=== PATIENT | male | born 1945 | race Caucasian/White ===

== ENCOUNTER → 2020-02-25 12:10 | Outpatient (BNVA) | payer MEDICARE, SELFPAY | PROVIDERS: PCP Internal Medicine; Visit Provider Urology | DX: N40.1 Benign prostatic hyperplasia with lower urinary tract symptoms (principal); N13.8 Other obstructive and reflux uropathy; N52.9 Male erectile dysfunction, unspecified; N48.6 Induration penis plastica | CPT/HCPCS: Q3014 ==

== ENCOUNTER → 2020-09-01 09:42 | Outpatient (BNVA) | payer MEDICARE, SELFPAY | PROVIDERS: PCP Internal Medicine; Visit Provider Urology | DX: N40.1 Benign prostatic hyperplasia with lower urinary tract symptoms (principal); N13.8 Other obstructive and reflux uropathy; N52.9 Male erectile dysfunction, unspecified; N48.6 Induration penis plastica | CPT/HCPCS: 99212 ==

== ENCOUNTER 2021-03-02 10:38 | Outpatient (REF) | payer MEDICARE, SELFPAY | END 2021-03-02 10:39 | disposition home or self-care (01) | LOC: HO.LAB 10:38 | PROVIDERS: PCP Internal Medicine; Visit Provider Urology | DX: N39.0 Urinary tract infection, site not specified (principal); N40.1 Benign prostatic hyperplasia with lower urinary tract symptoms; N13.8 Other obstructive and reflux uropathy; N48.6 Induration penis plastica; N52.9 Male erectile dysfunction, unspecified; I10 Essential (primary) hypertension | CPT/HCPCS: 51798; 87086; 99212 ==

== ENCOUNTER 2021-08-31 11:06 | Outpatient (REF) | payer MEDICARE, SELFPAY | END 2021-08-31 11:07 | disposition home or self-care (01) | LOC: HO.LAB 11:06 | PROVIDERS: PCP Internal Medicine; Visit Provider Urology | DX: N39.0 Urinary tract infection, site not specified (principal); N40.1 Benign prostatic hyperplasia with lower urinary tract symptoms; N13.8 Other obstructive and reflux uropathy | CPT/HCPCS: 51798; 87086; 99212 ==

== ENCOUNTER → 2021-09-21 11:04 | Outpatient (BNVA) | payer MEDICARE, SELFPAY | PROVIDERS: PCP Internal Medicine; Visit Provider Urology | DX: N40.1 Benign prostatic hyperplasia with lower urinary tract symptoms (principal); N13.8 Other obstructive and reflux uropathy | CPT/HCPCS: 52000; 99212 ==

== ENCOUNTER → 2021-10-26 12:03 | Outpatient (BNVA) | payer MEDICARE, SELFPAY | PROVIDERS: PCP Internal Medicine; Visit Provider Urology | DX: N40.1 Benign prostatic hyperplasia with lower urinary tract symptoms (principal); N13.8 Other obstructive and reflux uropathy | CPT/HCPCS: Q3014 ==

== ENCOUNTER 2021-11-07 07:17 | Day surgery (SDC) | payer MEDICARE, SELFPAY ==
[2021-11-01 11:46] VITALS: BMI 20.9
--- NOTE | 2021-11-07 07:25 | P.CONAN_ITS ---
[facility] Active Problems Active Problems: All Active Problems (Updated 11/01/21 @ 11:49 by Kemi Guevara, BETTY) BPH w urinary obs/LUTS (Acute) Erectile dysfunction (Acute) Peyronie's disease (Acute) UTI (urinary tract infection) (Acute) Past Medical History Medical History (Updated 11/01/21 @ 11:49 by Kemi Guevara RN) Anemia HTN (hypertension) Incomplete emptying of bladder Low back pain Muscle pain Peyronie's disease UTI (urinary tract infection) Weak urinary stream Family History Family history of problems with anesthesia: No Surgical History Surgical History (Updated 11/01/21 @ 12:09 by Kemi Guevara RN) History of surgery Hx of colonoscopy Hx of cystoscopy History of Problems with Anesthesia: No Social History Social History Are you a primary patient centered care specialist to a significant other at home: No Do you presently have visiting nurse or other home services: No Patient Tobacco Use Status: Former Tobacco user Quit Date: 2011 Tobacco use type: Cigarette Have you been hit, kicked, punched, or otherwise hurt by someone within the past year? If so, by whom?: No Are you DNR?: No Advance Directives: No Advance Directives Information Provided: Yes Advance Directives on File: No Meds Allergies Allergy/AdvReac Type Severity Reaction Status Date / Time No Known Allergies Allergy Verified 11/01/21 11:46 Active Medications: Current Medications Lactated Ringer's (Lr) 1,000 mls @ 50 mls/hr IVCONT .Q20H [facility] Home Medications Medication Instructions Recorded Confirmed Last Taken Type sildenafil 100 mg tablet 100 mg PO 02/25/20 09/21/21 Unknown History betamethasone, augmented 0.05 % topical BID 08/31/21 09/21/21 Unknown History topical ointment ferrous sulfate 325 mg (65 mg 325 mg PO DAILY 08/31/21 11/01/21 Unknown History iron) tablet Exam Exam Date and Time: November 07, 2021 0725 Height,Weight and Vital Signs: Height 5 ft 6 in Weight 58.967 kg Airway Mallampati Class: II TM Dist: >3cm Neck ROM: Full Heart: rrr Lungs: cta Assessment and Plan Assessment Anesthesia Assessment: Anesthesia Plan Discussed and Chart Reviewed Final Anesthetic Review Family History of Problems with Anesthesia: No History of Problems with Anesthesia: No NPO: Yes ASA Class: II Final Preanesthetic Review: No Changes in Pt Med Stat, Meds/Allgs Chart Reviewed and Consent Obtained/Reviewed Patient Risk: Intermediate Procedure Risk: Intermediate Anesthetic Plan Anesthetic Plan: GA Disposition: Standard PACU
[2021-11-07 07:48] VITALS: BMI 20.9
[2021-11-07] MEDS: Acetaminophen 325 MG TABLET 650 MG PO ×2 (08:11→11:02)
[2021-11-07] MEDS: Lactated Ringers 1,000 ML 50 ML IVCONT (08:12)
--- NOTE | 2021-11-07 10:37 | P.OP_ITS ---
Operative Note Operative Note Date of Service: 11/07/21 Narrative: PreOperative Diagnosis: recurrent Bladder outlet obstruction Post Operative Diagnosis: recurrent Bladder outlet obstruction Procedure: GreenLight Laser Enucleation of the prostate Surgeon: Dr Rafael Vincent Anesthesia: General Indications for procedure: regrowth of right lateral lobe. Prior office laser 2016 History of bladder outlet obstruction. Treated with alpha-santos and other medications. Still with symptoms. On cystoscopy in office has regrowth right lateral lobe. Recommendation for prostate procedure with laser enucleation of prostate. It has been discussed. Focus was placed on development of retrograde examination which is a normal part of this procedure. Procedure: After informed consent was verified the patient was brought to the operating room and placed in a supine position. Anesthesia was administered per protocol. Patient was placed in modified dorsal lithotomy position and prepped and draped in a sterile fashion. Safety pause time-out was confirmed. Antibiotics have been given. Twenty-four Sierra Leonean laser cystoscope was inserted per urethra. No abnormalities found the anterior posterior urethra. The bladder was filled on both ureteric orifices were seen in normal position away from our area of interest. open median area from prior procedure. Synechia of prostate which was divided. Decision was made to focus On lateral lobes. Once the median lobe area had been cleaned attention was directed to the lateral lobes. We started with the patient's Right lateral lobe. Firstly the 05:00 o'clock groove was further developed. This was moved in the lateral position to undermine the tissue on the lateral side. Focus was then placed on the laser at the 1 o'clock position in developing a secondary groove down to the level of bladder fibers. The intervening tissue between these 2 grooves was removed with a combination of enucleation ablation working from the apex toward the bladder neck. A similar procedure was repeated on the patient's left side. When this was completed debris and pieces of prostate removed from the bladder. Both ureteric orifices were reviewed again in shown to be patent in away from any areas of energy damage. The apical area was reviewed in any stray ooze was controlled. A 22 [place]an 30 cc balloon Jones catheter was placed over stylet into the bladder. Clear efflux was obtained. 30 cc was placed in the balloon and gentle traction was placed. A snap was used to hold tension once the patient will be moved and transported. Once transportation its finish this novel be removed. A belladonna and opiate suppository was placed for postprocedure pain management. He tolerated procedure well was extubated in the operating and transferred in a stable condition to the recovery area. Total Power 92 kW, 14 min lasing time Pathology: Prostate tissue Drains: Jones catheter
[2021-11-07 10:39] VITALS: BP 160/88; PULSE 72; RESP 22; TEMP 36.1; O2SAT 99
[2021-11-07 10:44] VITALS: BP 134/84; PULSE 84; RESP 18; O2SAT 96
[2021-11-07 10:49] VITALS: BP 148/85; PULSE 79; RESP 18; O2SAT 98
[2021-11-07 10:54] VITALS: BP 145/83; PULSE 82; RESP 16; TEMP 36.1; O2SAT 98
[2021-11-07] MEDS: traMADoL HCL 50 MG TABLET PO (11:01)
[2021-11-07 11:09] VITALS: BP 163/90; PULSE 85; RESP 20; TEMP 36.1; O2SAT 97
== END 2021-11-07 11:54 | disposition home or self-care (01) ==
PROVIDERS: PCP Internal Medicine; Visit Provider Urology
PROC: (CPT 52648; principal; 2021-11-07 09:10)
DX: N40.1 Benign prostatic hyperplasia with lower urinary tract symptoms (principal); N13.8 Other obstructive and reflux uropathy; R33.9 Retention of urine, unspecified; R39.12 Poor urinary stream; N48.6 Induration penis plastica; N52.9 Male erectile dysfunction, unspecified; Z87.440 Personal history of urinary (tract) infections; I10 Essential (primary) hypertension; D64.9 Anemia, unspecified; M54.50 Low back pain, unspecified; Z79.899 Other long term (current) drug therapy; Z87.891 Personal history of nicotine dependence
CPT/HCPCS: 52649; 88305; J0330; J1100; J1956; J2250; J2405; J3010

== ENCOUNTER → 2021-11-10 09:16 | Outpatient (BNVA) | payer MEDICARE, SELFPAY | PROVIDERS: PCP Internal Medicine; Visit Provider Urology | DX: N13.8 Other obstructive and reflux uropathy (principal) | CPT/HCPCS: 51700; 51798 ==

== ENCOUNTER 2022-01-11 14:05 | Outpatient (AMB) | payer MEDICARE, SELFPAY ==
--- NOTE | 2022-01-11 14:08 | MHC.OFFVIS ---
Intake Intake Visit Reasons: (Greenlight) Follow up Intake Note: Patient is present for post op Urology Medication: Sildenafil, terazosin Post Void Residual: 24ml Patient states that he has a very hard time holding his urine. He has to use diapers and he feels like it is getting worse Allergies No Known Allergies Allergy (Verified 04/21/22 11:54) HPI HPI Comments History of Present Illness Details Keon is a pleasant male. He is a patient of Dr. Cevallos. He is seen for the following urologic conditions - lower urinary tract symptoms - Peyronie's disease - erectile dysfunction Three month follow-up of the laser procedure PVR 24 cc Persistent urgency and frequency Lower Urinary Tract Symptoms: Current visit is for further evaluation of, lower urinary tract symptoms, predominate irritative symptoms - effective urination maintained does take alpha-santos daily. Current treatment includes alpha santos. Prior treatments include medication, terazosin 10 m - procedure, laser procedure office Oct 2015. - 10/31 GREENLIGHT LASER Prostate Symptom Score Mild (0-8). Prior Prostate Score mild. PSA 07/26 1.8 07/27 2.8 07/28 2.4 - 07/30 3.0 Treatment plan Continue with terazosin Recurring urinary tract infection 03/01 mixed kiera PFSH Medical History Anemia HTN (hypertension) Incomplete emptying of bladder Low back pain Muscle pain Peyronie's disease UTI (urinary tract infection) Weak urinary stream Surgical History History of surgery Hx of colonoscopy Hx of cystoscopy Social History Are you a primary rn wound care to a significant other at home: No Do you presently have visiting nurse or other home services: No Patient Tobacco Use Status: Former Tobacco user Quit Date: 2011 Tobacco use type: Cigarette Review of Systems Const Denies chills and Denies fever(s) Card Reports no additional complaints and Denies syncope Resp Denies cough GI Denies abdominal pain and Denies heartburn Reports as per HPI and Denies change in libido Neuro Denies syncope Psych Denies change in libido Endo Denies change in libido Physical Exam Const General: cooperative, healthy appearing, comfortable and no acute distress Orientation/consciousness: patient oriented x3 HEENT Face and sinus: Yes normal facial exam Mouth: moist mucous membranes Neck Neck: Yes normal visual inspection, Yes full ROM and Yes trachea midline Chest Chest palpation & inspection: normal inspection of the chest Resp Effort & Inspection: normal respiratory effort, able to speak in complete sentences and no respiratory distress GI Inspection: Yes normal to inspection Rectal Exam - Male: Yes normal sphincter tone and Yes prostate normal Male General Exam: Yes normal external exam Penis: normal penis and circumcised Meatus: meatus normal Scrotum: scrotum normal Testes: Testes normal Back/Spine/Pelvis Cervical Spine: normal cervical lordosis Thoracic/Lumbar Spine: thoracic and lumbar spine normal to inspection Skin General skin exam: no rashes or lesions noted Neuro General: patient oriented x3, gait normal, tone normal and moves all extremities Extrem General: Yes normal to inspection and Yes capillary refill normal Office Procedures Post Void Residual Post Residual Void Post Void Residual (PVR): 24 [id number] Void Residual by ultrasound Results AMB Urinalysis, Automated UA Leukoctes 70 Edwige/uL Last Edit by Tea Hoang [facility] on 01/11/22 14:21 UA Nitrite Negative Last Edit by Tea Hoang [facility] on 01/11/22 14:21 UA Urobilinogen 0.2 mg/dL Last Edit by Tea Hoang [facility] on 01/11/22 14:21 UA Protein 15 mg/dL Last Edit by Tea Hoang [facility] on 01/11/22 14:21 UA pH 6.0 Last Edit by Tea Hoang [facility] on 01/11/22 14:21 UA Blood 0 Mark/uL Last Edit by Tea Hoang [facility] on 01/11/22 14:21 UA Specific [place] 1.020 Last Edit by JORDAN Seaman on 01/11/22 14:21 UA Ketone Negative Last Edit by JORDAN Seaman on 01/11/22 14:21 UA Bilirubin 0 mg/dL Last Edit by Tea Hoang [facility] on 01/11/22 14:21 UA Glucose 0 mg/dL Last Edit by Tea Hoang [facility] on 01/11/22 14:21 Results Reviewed Results Reviewed: Laboratory Last Values Urine pH (Auto) 6.0 01/11/22 14:12 Specific [place] (Auto) 1.020 01/11/22 14:12 Urine Protein (Auto) 15 mg/dL 01/11/22 14:12 Glucose (UA)(Auto) 0 mg/dL 01/11/22 14:12 Urine Ketones (Auto) Negative 01/11/22 14:12 Urine Blood (Auto) 0 Mark/uL 01/11/22 14:12 Urine Nitrite (Auto) Negative 01/11/22 14:12 Urine Bilirubin (Auto) 0 mg/dL 01/11/22 14:12 Urine Urobilinogen (Auto) 0.2 mg/dL 01/11/22 14:12 Leukocyte Esterase (Auto) 70 Edwige/uL 01/11/22 14:12 Assessment & Plan Assessment & Plan (1) Urgency of urination: Code(s): R39.15 - Urgency of urination (2) BPH w urinary obs/LUTS: Code(s): N40.1 - Benign prostatic hyperplasia with lower urinary tract symptoms; N13.8 - Other obstructive and reflux uropathy Plan Trial Myrbetriq Orders: Orders AMB Urinalysis Automated 01/11/22 Z13.9 - Encounter for screening, unspecified AMB Post Void Residual by ultrasound 01/11/22 N40.1 - Benign prostatic hyperplasia with lower urinary tract symptoms, N13.8 - Other obstructive and reflux uropathy Medications: New mirabegron ER 25 mg PO DAILY 30 tabs 2RF 30 days R39.15 - Urgency of urination, N32.81 - Overactive bladder Patient Instructions: Imaging studies, laboratory and physical exam results were discussed and reviewed in detail. No major barriers to patient understanding were identified. An opportunity to ask questions regarding the treatment plan was provided. All questions were answered. The patient expressed understanding and agreement with the above treatment plan. The patient is aware they should contact our office by phone for worsening of their current condition or the appearance of new urologic symptoms. Compliance is encouraged with any medications and followup testing that is ordered. It is a privilege to participate in the urologic care of your patient. If you have any questions or concerns regarding treatment for the above conditions, or other urologic issues, please do not hesitate to contact me. The office telephone contact is [phone]. This note is constructed using voice recognition software. While every effort has been made to ensure accuracy process improvement consultant errors may have been included. Yours sincerely, Dr Rafael Vincent MD, [facility] - Urology Providers of Expert, Compassionate Care for the Genitourinary System Coding Level of Care Code Est Pt Level 4 (41453) Diagnoses Urgency of urination R39.15 BPH w urinary obs/LUTS N40.1; N13.8 CPT Codes Post Residual Void - PVR CPT Code: 38760-Parp Void Residual by ultrasound ([id number])
== END 2022-01-11 14:51 | disposition home or self-care (01) ==
LOC: HO.HUSH 14:05
PROVIDERS: PCP Internal Medicine; Visit Provider Urology
DX: N40.1 Benign prostatic hyperplasia with lower urinary tract symptoms (principal); R39.15 Urgency of urination; N13.8 Other obstructive and reflux uropathy
CPT/HCPCS: 99214

== ENCOUNTER → 2022-01-11 14:05 | Outpatient (BNVA) | payer MEDICARE, SELFPAY | PROVIDERS: PCP Internal Medicine; Visit Provider Urology | DX: N40.1 Benign prostatic hyperplasia with lower urinary tract symptoms (principal); R39.15 Urgency of urination; N13.8 Other obstructive and reflux uropathy | CPT/HCPCS: 51798; 99212 ==

== ENCOUNTER → 2022-04-21 11:43 | Outpatient (BNVA) | payer MEDICARE, SELFPAY | PROVIDERS: PCP Internal Medicine; Visit Provider Urology | DX: N40.1 Benign prostatic hyperplasia with lower urinary tract symptoms (principal); N13.8 Other obstructive and reflux uropathy; N52.9 Male erectile dysfunction, unspecified; R39.15 Urgency of urination; N48.6 Induration penis plastica; Z79.899 Other long term (current) drug therapy; Z87.891 Personal history of nicotine dependence | CPT/HCPCS: 99212 ==

== ENCOUNTER 2022-10-24 11:40 | Outpatient (AMB) | payer MEDICARE, SELFPAY ==
--- NOTE | 2022-10-24 11:52 | A.OFFVIS_ITS ---
Intake Intake Visit Reasons: 6M PSA/PVR(set) Intake Note: Patient is present for Follow Up PSA Urology Med: Sildenafil, Terazosin Antibiotic Allergy:none Blood Thinner: none Pharmacy: [facility] PVR: 75ML Allergies No Known Allergies Allergy (Verified 04/21/22 11:54) Medication List - Last Reconciled 10/24/22 by Rafael Vincent MD amlodipine 5 mg PO DAILY sildenafil 100 mg PO solifenacin 5 mg PO DAILY 30 days HPI HPI Comments History of Present Illness Details Keon is a pleasant male. He is a patient of Dr. Cevallos. He is seen for the following urologic conditions - lower urinary tract symptoms - Peyronie's disease - erectile dysfunction - overactive bladder Follow-up Good urinary stream Effective bladder emptying Urinary urgency with frequency consistent with persistent overactive bladder phenomena Trial solifenacin Lower Urinary Tract Symptoms: Current visit is for further evaluation of, lower urinary tract symptoms, predominate irritative symptoms - effective urination maintained does take alpha-santos daily. Current treatment includes alpha santos. Prior treatments include medication, terazosin 10 m - procedure, laser procedure office Oct 2015. - 10/31 GREENLIGHT LASER Prostate Symptom Score Mild (0-8). Prior Prostate Score mild. PSA 07/26 1.8, 07/27 2.8, 07/28 2.4, 07/30 3.0 Treatment plan PVR surveillance Recurring urinary tract infection 03/01 mixed kiera PFSH Medical History Anemia HTN (hypertension) Incomplete emptying of bladder Low back pain Muscle pain Peyronie's disease UTI (urinary tract infection) Weak urinary stream Surgical History History of surgery Hx of colonoscopy Hx of cystoscopy Social History Are you a primary physician locums urgent care to a significant other at home: No Do you presently have visiting nurse or other home services: No Patient Tobacco Use Status: Former Tobacco user Quit Date: 2011 Tobacco use type: Cigarette Review of Systems Const Denies chills and Denies fever(s) Card Reports no additional complaints and Denies syncope Resp Denies cough GI Denies abdominal pain and Denies heartburn Reports as per HPI and Denies change in libido Neuro Denies syncope Psych Denies change in libido Endo Denies change in libido Physical Exam Const General: cooperative, healthy appearing, comfortable and no acute distress Orientation/consciousness: patient oriented x3 HEENT Face and sinus: Yes normal facial exam Mouth: moist mucous membranes Neck Neck: Yes normal visual inspection, Yes full ROM and Yes trachea midline Chest Chest palpation & inspection: normal inspection of the chest Resp Effort & Inspection: normal respiratory effort, able to speak in complete sentences and no respiratory distress GI Inspection: Yes normal to inspection Back/Spine/Pelvis Cervical Spine: normal cervical lordosis Thoracic/Lumbar Spine: thoracic and lumbar spine normal to inspection Skin General skin exam: no rashes or lesions noted Neuro General: patient oriented x3, gait normal, tone normal and moves all extremities Extrem General: Yes normal to inspection and Yes capillary refill normal Office Procedures Post Void Residual Post Residual Void Post Void Residual (PVR): 75 [id number] Void Residual by ultrasound Assessment & Plan Assessment & Plan (1) BPH w urinary obs/LUTS: Code(s): N40.1 - Benign prostatic hyperplasia with lower urinary tract symptoms; N13.8 - Other obstructive and reflux uropathy (2) Urgency of urination: Code(s): R39.15 - Urgency of urination Plan Trial solifenacin Orders: Orders AMB Post Void Residual by ultrasound Today N13.8 - Other obstructive and reflux uropathy, N40.1 - Benign prostatic hyperplasia with lower urinary tract symptoms Medications: New solifenacin 5 mg PO DAILY 30 tabs 1RF 30 days R39.15 - Urgency of urination Discontinued terazosin Discontinued Reason: Patient Completed Course 10 mg PO DAILY 90 caps 2RF Patient Instructions: Imaging studies, laboratory and physical exam results were discussed and reviewed in detail. No major barriers to patient understanding were identified. An opportunity to ask questions regarding the treatment plan was provided. All questions were answered. The patient expressed understanding and agreement with the above treatment plan. The patient is aware they should contact our office by phone for worsening of their current condition or the appearance of new urologic symptoms. Compliance is encouraged with any medications and followup testing that is ordered. It is a privilege to participate in the urologic care of your patient. If you have any questions or concerns regarding treatment for the above conditions, or other urologic issues, please do not hesitate to contact me. The office telephone contact is [phone]. This note is constructed using voice recognition software. While every effort has been made to ensure accuracy taffy puller errors may have been included. Yours sincerely, Dr Rafael Vincent MD, [facility] - Urology Providers of Expert, Compassionate Care for the Genitourinary System Coding Level of Care Code Est Pt Level 4 (19238) Diagnoses BPH w urinary obs/LUTS N40.1; N13.8 Urgency of urination R39.15 CPT Codes Post Residual Void - PVR CPT Code: 64187-Zglq Void Residual by ultrasound ([id number])
== END 2022-10-24 12:20 | disposition home or self-care (01) ==
LOC: HO.HUSH 11:40
PROVIDERS: PCP Internal Medicine; Visit Provider Urology
DX: N40.1 Benign prostatic hyperplasia with lower urinary tract symptoms (principal); N13.8 Other obstructive and reflux uropathy; R39.15 Urgency of urination
CPT/HCPCS: 99214

== ENCOUNTER → 2022-10-24 11:40 | Outpatient (BNVA) | payer MEDICARE, SELFPAY | PROVIDERS: PCP Internal Medicine; Visit Provider Urology | DX: N40.1 Benign prostatic hyperplasia with lower urinary tract symptoms (principal); N13.8 Other obstructive and reflux uropathy; R39.15 Urgency of urination | CPT/HCPCS: 51798; 99212 ==

== ENCOUNTER 2023-01-04 09:59 | Outpatient (AMB) | payer MEDICARE, SELFPAY ==
--- NOTE | 2023-01-04 09:55 | A.OFFVIS_ITS ---
Intake Intake Visit Reasons: Med review- follow up Intake Note: pt has Televisit to follow up on Solifenacin 5mg, pt still taking medication reports no problems Senior Piping Designer Required: No Allergies No Known Allergies Allergy (Verified 04/21/22 11:54) Medication List - Last Reconciled 01/04/23 by Rafael Vincent MD amlodipine 5 mg PO DAILY sildenafil 100 mg PO solifenacin 10 mg PO DAILY 30 days HPI HPI Comments History of Present Illness Details Keon is a pleasant male. He is a patient of Dr. Cevallos. He is seen for the following urologic conditions - lower urinary tract symptoms - Peyronie's disease - erectile dysfunction - overactive bladder Telemedicine Evaluation 15 min Consultation Transportation Group Yesi Video attempted Follow-up trial of solifenacin Has noted some improvement Better control during the day Willing to Trial higher dose of solifenacin Lower Urinary Tract Symptoms: Current visit is for further evaluation of, lower urinary tract symptoms, predominate irritative symptoms - effective urination maintained does take alpha-santos daily. Current treatment includes alpha santos. Prior treatments include medication, terazosin 10 m - procedure, laser procedure office Oct 2015. - 10/31 GREENLIGHT LASER - improved stream Prostate Symptom Score Mild (0-8). Prior Prostate Score mild. PSA 07/26 1.8, 07/27 2.8, 07/28 2.4, 07/30 3.0 Treatment plan PVR surveillance Recurring urinary tract infection 03/01 mixed kiera PFSH Medical History Anemia HTN (hypertension) Incomplete emptying of bladder Low back pain Muscle pain Peyronie's disease UTI (urinary tract infection) Weak urinary stream Surgical History History of surgery Hx of colonoscopy Hx of cystoscopy Social History Are you a primary complex care nurse practitioner to a significant other at home: No Do you presently have visiting nurse or other home services: No Patient Tobacco Use Status: Former Tobacco user Quit Date: 2011 Tobacco use type: Cigarette Review of Systems Const All systems reviewed & are unremarkable except as noted in HPI and below Reports no additional complaints Resp Reports no additional complaints GI Reports no additional complaints Reports as per HPI Musc Reports no additional complaints Physical Exam Telemedicine evaluation Appropriate responses Regular breathing rate and rhythm HEENT Head: Yes normal to inspection Ears: hearing grossly normal bilaterally Eyes General: appearance normal, both eyes and all related structures Neck Neck: Yes normal visual inspection Chest Chest palpation & inspection: normal inspection of the chest Resp Effort & Inspection: normal respiratory effort and able to speak in complete sentences Assessment & Plan Assessment & Plan (1) Urgency of urination: Code(s): R39.15 - Urgency of urination (2) BPH w urinary obs/LUTS: Code(s): N40.1 - Benign prostatic hyperplasia with lower urinary tract symptoms; N13.8 - Other obstructive and reflux uropathy Plan Two month follow-up Medications: Changed From solifenacin 5 mg PO DAILY 30 tabs 1RF 30 days R39.15 - Urgency of urination To solifenacin 10 mg PO DAILY 30 tabs 1RF 30 days R39.15 - Urgency of urination Patient Instructions: Imaging studies, laboratory and physical exam results were discussed and reviewed in detail. No major barriers to patient understanding were identified. An opportunity to ask questions regarding the treatment plan was provided. All questions were answered. The patient expressed understanding and agreement with the above treatment plan. The patient is aware they should contact our office by phone for worsening of their current condition or the appearance of new urologic symptoms. Compliance is encouraged with any medications and followup testing that is ordered. It is a privilege to participate in the urologic care of your patient. If you have any questions or concerns regarding treatment for the above conditions, or other urologic issues, please do not hesitate to contact me. The office telephone contact is [phone]. This note is constructed using voice recognition software. While every effort has been made to ensure accuracy geographic information system surveyor errors may have been included. Yours sincerely, Dr Rafael Vincent MD, [facility] - Urology Providers of Expert, Compassionate Care for the Genitourinary System Telehealth Telehealth Location of provider rendering services: practice address Location of patient: address on file Patient Identification confirmed using: Name, : Yes Telehealth method: video Patient verbally consented to treatment: Yes Patient verbally consented to billing insurance company: Yes Patient informed of any privacy concerns related to visit: Yes Coding Level of Care Code Tele Est Pt Level 3 (83018) Diagnoses Urgency of urination R39.15 BPH w urinary obs/LUTS N40.1; N13.8
== END 2023-01-04 10:53 | disposition home or self-care (01) ==
LOC: HO.HUSH 09:59
PROVIDERS: PCP Internal Medicine; Visit Provider Urology
DX: N40.1 Benign prostatic hyperplasia with lower urinary tract symptoms (principal); R39.15 Urgency of urination; N13.8 Other obstructive and reflux uropathy
CPT/HCPCS: 99213

== ENCOUNTER → 2023-01-04 09:59 | Outpatient (BNVA) | payer MEDICARE, SELFPAY | PROVIDERS: PCP Internal Medicine; Visit Provider Urology ==

== ENCOUNTER 2023-02-27 10:36 | Outpatient (AMB) | payer MEDICARE, SELFPAY ==
--- NOTE | 2023-02-27 10:42 | MHC.OFFVIS ---
Intake Intake Visit Reasons: 2m/PVR Intake Note: Patient is Present for Follow Up PVR Urology Medication: Sildenafil, Vesicare Antibiotic Allergies: None Blood Thinners: None PVR: 51 Allergies No Known Allergies Allergy (Verified 02/27/23 10:43) Medication List - Last Reconciled 02/27/23 by Rafael Vincent MD amlodipine 5 mg PO DAILY sildenafil 100 mg PO solifenacin 10 mg PO DAILY 90 days HPI HPI Comments History of Present Illness Details Keon is a pleasant male. He is a patient of Dr. Cevallos. He is seen for the following urologic conditions - lower urinary tract symptoms - Peyronie's disease - erectile dysfunction - overactive bladder Higher dose solifenacin PVR 51 Happy with current medication Would like to remain on solifenacin PSA risen to 5 Continue with Q 6 month surveillance given symptoms and PSA Lower Urinary Tract Symptoms: Current visit is for further evaluation of, lower urinary tract symptoms, predominate irritative symptoms - effective urination maintained does take alpha-santos daily. Current treatment includes alpha santos. Prior treatments include medication, terazosin 10 m - procedure, laser procedure office Oct 2015. - 10/31 GREENLIGHT LASER - improved stream Prostate Symptom Score Mild (0-8). Prior Prostate Score mild. PSA 07/26 1.8, 07/27 2.8, 07/28 2.4, 07/30 3.0, 11/01 5.0 Treatment plan PVR surveillance Recurring urinary tract infection 03/01 mixed kiera PFSH Medical History Low back pain Anemia Muscle pain UTI (urinary tract infection) HTN (hypertension) Incomplete emptying of bladder Weak urinary stream Peyronie's disease Surgical History Hx of cystoscopy Hx of colonoscopy History of surgery Social History Are you a primary child care teacher to a significant other at home: No Do you presently have visiting nurse or other home services: No Comment: previously medicated with po tylenol and tramadol Patient Tobacco Use Status: Former Tobacco user Quit Date: 2011 Tobacco use type: Cigarette Review of Systems Const Denies chills and Denies fever(s) Card Reports no additional complaints and Denies syncope Resp Denies cough GI Denies abdominal pain and Denies heartburn Reports as per HPI and Denies change in libido Neuro Denies syncope Psych Denies change in libido Endo Denies change in libido Physical Exam Const General: cooperative, healthy appearing, comfortable and no acute distress Orientation/consciousness: patient oriented x3 HEENT Face and sinus: Yes normal facial exam Mouth: moist mucous membranes Neck Neck: Yes normal visual inspection, Yes full ROM and Yes trachea midline Chest Chest palpation & inspection: normal inspection of the chest Resp Effort & Inspection: normal respiratory effort, able to speak in complete sentences and no respiratory distress GI Inspection: Yes normal to inspection Back/Spine/Pelvis Cervical Spine: normal cervical lordosis Thoracic/Lumbar Spine: thoracic and lumbar spine normal to inspection Skin General skin exam: no rashes or lesions noted Neuro General: patient oriented x3, gait normal, tone normal and moves all extremities Extrem General: Yes normal to inspection and Yes capillary refill normal Office Procedures Post Void Residual Post Residual Void Post Void Residual (PVR): 51 [id number] Void Residual by ultrasound Assessment & Plan Assessment & Plan (1) BPH w urinary obs/LUTS: Code(s): N40.1 - Benign prostatic hyperplasia with lower urinary tract symptoms; N13.8 - Other obstructive and reflux uropathy (2) Urgency of urination: Code(s): R39.15 - Urgency of urination (3) BPH with elevated PSA: Code(s): N40.0 - Benign prostatic hyperplasia without lower urinary tract symptoms; R97.20 - Elevated prostate specific antigen [PSA] Plan Six month follow-up PVR with PSA Orders: Orders AMB Post Void Residual by ultrasound 02/27/23 N40.1 - Benign prostatic hyperplasia with lower urinary tract symptoms, N13.8 - Other obstructive and reflux uropathy Medications: Changed From solifenacin 10 mg PO DAILY 30 days 30 tabs 1RF R39.15 - Urgency of urination To solifenacin 10 mg PO DAILY 90 tabs 1RF 90 days R39.15 - Urgency of urination Patient Instructions: Imaging studies, laboratory and physical exam results were discussed and reviewed in detail. No major barriers to patient understanding were identified. An opportunity to ask questions regarding the treatment plan was provided. All questions were answered. The patient expressed understanding and agreement with the above treatment plan. The patient is aware they should contact our office by phone for worsening of their current condition or the appearance of new urologic symptoms. Compliance is encouraged with any medications and followup testing that is ordered. It is a privilege to participate in the urologic care of your patient. If you have any questions or concerns regarding treatment for the above conditions, or other urologic issues, please do not hesitate to contact me. The office telephone contact is [phone]. This note is constructed using voice recognition software. While every effort has been made to ensure accuracy lead burner helper errors may have been included. Yours sincerely, Dr Rafael Vincent MD, [facility] - Urology Providers of Expert, Compassionate Care for the Genitourinary System Coding Level of Care Code Est Pt Level 3 (65670) Diagnoses BPH w urinary obs/LUTS N40.1; N13.8 Urgency of urination R39.15 BPH with elevated PSA N40.0; R97.20 CPT Codes Post Residual Void - PVR CPT Code: 32128-Qcmf Void Residual by ultrasound ([id number])
== END 2023-02-27 10:59 | disposition home or self-care (01) ==
PROVIDERS: PCP Internal Medicine; Visit Provider Urology
DX: N40.1 Benign prostatic hyperplasia with lower urinary tract symptoms (principal); N13.8 Other obstructive and reflux uropathy; R39.15 Urgency of urination; N40.0 Benign prostatic hyperplasia without lower urinary tract symptoms; R97.20 Elevated prostate specific antigen [PSA]
CPT/HCPCS: 99213

== ENCOUNTER → 2023-02-27 10:36 | Outpatient (BNVA) | payer MEDICARE, SELFPAY | PROVIDERS: PCP Internal Medicine; Visit Provider Urology | DX: N40.1 Benign prostatic hyperplasia with lower urinary tract symptoms (principal); N13.8 Other obstructive and reflux uropathy; R39.15 Urgency of urination; R97.20 Elevated prostate specific antigen [PSA] | CPT/HCPCS: 51798; 99212 ==

== ENCOUNTER 2023-08-30 11:37 | Outpatient (AMB) | payer MEDICARE, SELFPAY ==
--- NOTE | 2023-08-30 11:45 | MHC.OFFVIS ---
Intake Visit Reasons: 6m/PVR Intake Note: Patient is Present for PVR/ Urology Med: Solifenacin Antibiotic Allergy: None Blood Thinner: None Last PVR: 51 Todays PVR: Five Roll Refiner Batch Mixer Required: No Allergies No Known Allergies Allergy (Verified 08/30/23 11:45) HPI Comments Details: Keon is a pleasant male. He is a patient of Dr. Cevallos. He is seen for the following urologic conditions - lower urinary tract symptoms - Peyronie's disease - erectile dysfunction - overactive bladder PVR remains in range on higher dose solifenacin PSA pending Would restart finasteride and repeat in 6 months Continue with Q 6 month surveillance given symptoms and PSA Lower Urinary Tract Symptoms: Current visit is for further evaluation of, lower urinary tract symptoms, predominate irritative symptoms - effective urination maintained does take alpha-santos daily. Current treatment includes alpha santos. Prior treatments include medication, terazosin 10 m - procedure, laser procedure office Oct 2015. - 10/31 GREENLIGHT LASER - improved stream Prostate Symptom Score Mild (0-8). Prior Prostate Score mild. PSA 07/26 1.8, 07/27 2.8, 07/28 2.4, 07/30 3.0, 11/01 5.0 Treatment plan PVR surveillance Recurring urinary tract infection 03/01 mixed kiera PFSH Medical History Low back pain Anemia Muscle pain UTI (urinary tract infection) HTN (hypertension) Incomplete emptying of bladder Weak urinary stream Peyronie's disease Surgical History Hx of cystoscopy Hx of colonoscopy History of surgery Social History Are you a primary daycare director to a significant other at home: No Do you presently have visiting nurse or other home services: No Comment: previously medicated with po tylenol and tramadol Patient Tobacco Use Status: Former Tobacco user Tobacco use type: Cigarette Review of Systems Const Denies chills and Denies fever(s) Card Reports no additional complaints and Denies syncope Resp Denies cough GI Denies abdominal pain and Denies heartburn Reports as per HPI and Denies change in libido Neuro Denies syncope Psych Denies change in libido Endo Denies change in libido Physical Exam Const General: cooperative, healthy appearing, comfortable and no acute distress Orientation/consciousness: patient oriented x3 HEENT Face and sinus: Yes normal facial exam Mouth: moist mucous membranes Neck Neck: Yes normal visual inspection, Yes full ROM and Yes trachea midline Chest Chest palpation & inspection: normal inspection of the chest Resp Effort & Inspection: normal respiratory effort, able to speak in complete sentences and no respiratory distress GI Inspection: Yes normal to inspection Back/Spine/Pelvis Cervical Spine: normal cervical lordosis Thoracic/Lumbar Spine: thoracic and lumbar spine normal to inspection Skin General skin exam: no rashes or lesions noted Neuro General: patient oriented x3, gait normal, tone normal and moves all extremities Extrem General: Yes normal to inspection and Yes capillary refill normal Assessment & Plan Assessment & Plan (1) BPH w urinary obs/LUTS: Code(s): N40.1 - Benign prostatic hyperplasia with lower urinary tract symptoms; N13.8 - Other obstructive and reflux uropathy Category: Medical (2) Erectile dysfunction: Code(s): N52.9 - Male erectile dysfunction, unspecified Category: Medical (3) Peyronie's disease: Code(s): N48.6 - Induration penis plastica Category: Medical (4) Urgency of urination: Code(s): R39.15 - Urgency of urination Category: Medical Plan Six month follow-up PSA Orders: Orders AMB Post Void Residual by ultrasound Today N13.8 - Other obstructive and reflux uropathy, N40.1 - Benign prostatic hyperplasia with lower urinary tract symptoms PSA,Total (Free>4and<10) 6 Months N40.0 - Benign prostatic hyperplasia without lower urinary tract symptoms, R97.20 - Elevated prostate specific antigen [PSA] Medications: New finasteride 5 mg PO DAILY 90 days 90 tabs 1RF N13.8 - Other obstructive and reflux uropathy, N40.0 - Benign prostatic hyperplasia without lower urinary tract symptoms, N40.1 - Benign prostatic hyperplasia with lower urinary tract symptoms, R33.9 - Retention of urine, unspecified, R97.20 - Elevated prostate specific antigen [PSA] Refilled solifenacin 10 mg PO DAILY 90 days 90 tabs 1RF R39.15 - Urgency of urination Patient Instructions: Imaging studies, laboratory and physical exam results were discussed and reviewed in detail. No major barriers to patient understanding were identified. An opportunity to ask questions regarding the treatment plan was provided. All questions were answered. The patient expressed understanding and agreement with the above treatment plan. The patient is aware they should contact our office by phone for worsening of their current condition or the appearance of new urologic symptoms. Compliance is encouraged with any medications and followup testing that is ordered. It is a privilege to participate in the urologic care of your patient. If you have any questions or concerns regarding treatment for the above conditions, or other urologic issues, please do not hesitate to contact me. The office telephone contact is [phone]. This note is constructed using voice recognition software. While every effort has been made to ensure accuracy plc programmer errors may have been included. Yours sincerely, Dr Rafael Vincent MD, [facility] - Urology Providers of Expert, Compassionate Care for the Genitourinary System Coding Level of Care Code Est Pt Level 3 (16123) Diagnoses BPH w urinary obs/LUTS N40.1; N13.8 Erectile dysfunction N52.9 Peyronie's disease N48.6 Urgency of urination R39.15
== END 2023-08-30 12:01 | disposition home or self-care (01) ==
PROVIDERS: PCP Internal Medicine; Visit Provider Urology
DX: N40.1 Benign prostatic hyperplasia with lower urinary tract symptoms (principal); N13.8 Other obstructive and reflux uropathy; N52.9 Male erectile dysfunction, unspecified; N48.6 Induration penis plastica; R39.15 Urgency of urination
CPT/HCPCS: 99213

== ENCOUNTER 2023-08-30 12:04 | Outpatient (REF) | payer MEDICARE, SELFPAY ==
[2023-09-03 10:38] LABS: Free Prostate Spec Ag 0.5 ng/mL; Percent Free Prostate Spec Ag 8 % (calc) (>25); Prostate Specific Ag Total 6.5 ng/mL (< OR = 4.0)
== END 2023-08-30 12:05 | disposition home or self-care (01) ==
LOC: HO.10HDL 12:04
PROVIDERS: Visit Provider Urology
DX: N40.0 Benign prostatic hyperplasia without lower urinary tract symptoms (principal); R97.20 Elevated prostate specific antigen [PSA]; Z12.5 Encounter for screening for malignant neoplasm of prostate
CPT/HCPCS: 36415; 84153; 84154; 99212

== ENCOUNTER 2024-02-29 10:01 | Outpatient (REF) | payer MEDICARE, SELFPAY ==
[2024-02-29 11:58] LABS: PSA,Total (Free>4and<10) 5.91 ng/mL (0.00-4.00)
[2024-03-03 10:57] LABS: Free Prostate Spec Ag 0.3 ng/mL; Percent Free Prostate Spec Ag 5 % (calc) (>25); Prostate Specific Ag Total 5.7 ng/mL (< OR = 4.0)
== END 2024-02-29 10:02 | disposition home or self-care (01) ==
LOC: HO.LAB 10:01
PROVIDERS: PCP Internal Medicine; Visit Provider Urology
DX: N40.0 Benign prostatic hyperplasia without lower urinary tract symptoms (principal); R97.20 Elevated prostate specific antigen [PSA]; Z12.5 Encounter for screening for malignant neoplasm of prostate
CPT/HCPCS: 36415; 84153; 84154

== ENCOUNTER 2024-03-26 13:47 | Outpatient (AMB) | payer MEDICARE, SELFPAY ==
--- NOTE | 2024-03-26 13:47 | MHC.OFFVIS ---
Intake Visit Reasons: 6M PSA(Set)Elevated Intake Note: Pt presents to the office as a telehealth today for a 6 month PSA. Allergies No Known Allergies Allergy (Verified 03/26/24 13:47) HPI Comments Details: Keon is a pleasant male. He is a patient of Dr. Cevallos. He is seen for the following urologic conditions - lower urinary tract symptoms - Peyronie's disease - erectile dysfunction - overactive bladder Telemedicine Evaluation 15 min Consultation Doximity Yesi Video Six-month surveillance PSA creeping Recommend prostate biopsy PVR remains in range on higher dose solifenacin Lower Urinary Tract Symptoms: Current visit is for further evaluation of, lower urinary tract symptoms, predominate irritative symptoms - effective urination maintained does take alpha-santos daily. Current treatment includes alpha santos. Prior treatments include medication, terazosin 10 m - procedure, laser procedure office Oct 2015. - 10/31 GREENLIGHT LASER - improved stream Prostate Symptom Score Mild (0-8). Prior Prostate Score mild. PSA 07/26 1.8, 07/27 2.8, 07/28 2.4, 07/30 3.0, 11/01 5.0, 09/02 6.4, 03/04 5.7 5% Treatment plan PVR surveillance Recurring urinary tract infection 03/01 mixed kiera PFSH Medical History Low back pain Anemia Muscle pain UTI (urinary tract infection) HTN (hypertension) Incomplete emptying of bladder Weak urinary stream Peyronie's disease Surgical History Hx of cystoscopy Hx of colonoscopy History of surgery Social History Are you a primary floor care technician to a significant other at home: No Do you presently have visiting nurse or other home services: No Comment: previously medicated with po tylenol and tramadol Patient Tobacco Use Status: Former Tobacco user Tobacco use type: Cigarette Telehealth Telehealth Telehealth Platform: [employer] Location of provider rendering services: practice address Location of patient: address on file Patient Identification confirmed using: Name, : Yes Telehealth method: video Patient verbally consented to treatment: Yes Patient verbally consented to billing insurance company: Yes Patient informed of any privacy concerns related to visit: Yes Minutes spent on Phone/Video with Pt.: 15 Assessment & Plan Assessment & Plan (1) BPH with elevated PSA: Code(s): N40.0 - Benign prostatic hyperplasia without lower urinary tract symptoms; R97.20 - Elevated prostate specific antigen [PSA] Category: Medical (2) Erectile dysfunction: Code(s): N52.9 - Male erectile dysfunction, unspecified Category: Medical Plan Risks and benefits regarding trans rectal ultrasound with prostate biopsy were discussed. Options of continued surveillance, no treatment and biopsy were offered. The risks include but are not limited to, urinary tract infection, sepsis, difficulty urinating, bleeding into the rectum or bladder that requires intervention and transfusion,and failure to diagnose prostate cancer. The patient understands the options and the risks involved. They wish to proceed. Printed information was provided to ensure he remains off anticoagulation for the appropriate length of time. He may require cardiology or PCP clearance. An antibiotic will be administered prior to, and following the procedure Medications: New levofloxacin take 1 tablet day before procedure, 1 tablet day of procedure and 1 tablet day after procedure 500 mg PO daily 3 days 3 tabs 0RF N40.0 - Benign prostatic hyperplasia without lower urinary tract symptoms, R97.20 - Elevated prostate specific antigen [PSA] Refilled solifenacin 10 mg PO DAILY 90 days 90 tabs 1RF R39.15 - Urgency of urination Patient Instructions: Imaging studies, laboratory and physical exam results were discussed and reviewed in detail. No major barriers to patient understanding were identified. An opportunity to ask questions regarding the treatment plan was provided. All questions were answered. The patient expressed understanding and agreement with the above treatment plan. The patient is aware they should contact our office by phone for worsening of their current condition or the appearance of new urologic symptoms. Compliance is encouraged with any medications and followup testing that is ordered. It is a privilege to participate in the urologic care of your patient. If you have any questions or concerns regarding treatment for the above conditions, or other urologic issues, please do not hesitate to contact me. The office telephone contact is [phone]. This note is constructed using voice recognition software. While every effort has been made to ensure accuracy pharmacy tech errors may have been included. Yours sincerely, Dr Rafael Vincent MD, [facility] - Urology Providers of Expert, Compassionate Care for the Genitourinary System Coding Level of Care Code Tele Est Pt Level 4 (39858) Diagnoses BPH with elevated PSA N40.0; R97.20 Erectile dysfunction N52.9
== END 2024-03-26 14:02 | disposition home or self-care (01) ==
LOC: HO.HUSH 13:47
PROVIDERS: PCP Internal Medicine; Visit Provider Urology
DX: N40.0 Benign prostatic hyperplasia without lower urinary tract symptoms (principal); R97.20 Elevated prostate specific antigen [PSA]; N52.9 Male erectile dysfunction, unspecified
CPT/HCPCS: 98001

== ENCOUNTER 2024-04-10 08:03 | Outpatient (REF) | payer MEDICARE, SELFPAY ==
[2024-04-10] MEDS: Lidocaine HCl 1 % MPF 5 ML VIAL 10 ML SUBCUT (08:54)
--- NOTE | 2024-04-10 09:10 | W.PM.OPN ---
Operative Note Operative Note Date of Service: 04/10/24 Narrative: Preoperative diagnosis: Elevated PSA Postoperative diagnosis: Elevated PSA Procedure: 1. transrectal ultrasound measurement of prostate 2. transrectal ultrasound-guided pudendal nerve block 3. transrectal ultrasound-guided prostate biopsy 12 core Surgeon: Dr. Rafael Vincent Anesthetic: 10cc 1% lidocaine Indications for procedure: Elevated PSA - 01/02 5.9 5% Counselling: Technical aspects, risks and benefits of proposed procedure were discussed in full. All questions have been answered, written consent has been obtained and patient agrees to proceed. Procedure: The patient was brought into the procedure area and placed in a left lateral decubitus position. Patient identity confirmed. Perioperative antibiotics confirmed. Safety pause time out performed. DANI was performed to dilate rectal sphincter Iodine 10cc with 60 cc gel was placed per rectum to reduce infection risk using a catheter tip syringe. 8 Hz Dylan rectal end-fire ultrasound probe was placed transrectally without difficulty. The prostate was visualized. Seminal vesicles were normal. Prostate margins were clearly demarcated. Bladder was seen superiorly. No cystic structures were noted calcifications were noted at the surgical margin The prostate was otherwise heterogenous in nature, no whorls were seen The prostate was measured in 3 dimensions Prostatic Width: 3.9 cm Prostatic Height: 3.0 cm Urethral Length: 3.7 cm Total volume equals : 25 ml An ultrasound-guided pudendal nerve block was performed using a 22 gauge spinal needle in the sagittal plane. 4 cc of 1% lidocaine placed at the junction of each seminal vesicle and 2 cc placed at the apex of the prostate. A 12 core biopsy was performed with 6 cores each side using an 18 gauge prostate biopsy gun. Two cores each were taken at the prostate apex, mid and base on each side. Cores were spaced between lateral and medial aspects. Each core was examined as placed on specimen foam as part of chemistry quality control technician to ensure a minimum 1 cm of length and minimal discontinuity. He tolerated the procedure well with minimal rectal bleeding. Blood pressure remained stable following procedure. He was able to ambulate to bathroom after 5 minutes. Printed instructions regarding antibiotic use and common adverse events from the procedure such as low-grade temperature, potential infection and bleeding were given. He understands to call the office or go to an emergency room should any of these events arise. Pathology: 12 core prostate biopsy. CPT code 64773: Transrectal ultrasound; this is a diagnostic test for evaluation of the prostate and surrounding structures, looking for abnormalities or suspicious areas worrisome for cancer CPT code 94232: Biopsy, prostate; needle or punch, single or multiple, any approach CPT code 95466: Ultrasonic guidance for needle placement (eg, biopsy, aspiration, injection, localization device), imaging supervision and interpretation
--- OUTSIDE RECORDS SUMMARY | 2024-04-10 10:58 | XMS_ITS | Clinical Summary ---
Author Organization [facility] Address [address] [place] [address] Care Team Providers Care Backfiller Name Role Phone Austen Cevallos MD Primary Care Provider Unavailab le Medications Medication Sig Dispensed Refills Start Date End Date Status terazosin (HYTRIN) 10 MG capsule Take 10 mg by mouth daily. 0 12/02/2021 Active Active Problems No known active problems Social History Tobacco Use Types Packs/Day Years Used Date Smoking Tobacco: Never Smokeless Tobacco: Never Alcohol Use Standard Drinks/Week Comments Yes 0 (1 standard drink = 0.6 oz pur e alcohol) Occasioanl Sex and Gender Information Value Date Recorded Sex Assigned at Male 08/29/2021 10:43 AM EDT Gender Identity Not on file Sexual Orientation Not on file Job Start Date Occupation Industry Not on file Not on file Not on file Last Filed Vital Signs Vital Sign Reading Time Taken Comments Blood Pressure 142/66 12/27/2021 11:42 AM EDT Pulse 90 12/27/2021 11:42 AM EDT Temperature 36.9 ??C (98.4 ??F) 12/27/2021 11:42 AM E DT Respiratory Rate - - Oxygen Saturation 100% 12/27/2021 11:42 AM EDT Inhaled Oxygen Concentration - - Weight 61.7 kg (136 lb) 12/27/2021 11:42 AM EDT Height - - Body Mass Index - - Plan of Treatment Health Maintenance Due Date Last Done Comments COVID-19 Vaccine (#1) 1945 Depression Screening 1957 Preventative Health Evaluation 01/06/1962 DTap / Tdap / Td (1 - Tdap) 01/06/1963 Shingrix-Zoster Vaccine (1 of 2) 01/06/1994 Fall Risk Assessment 01/06/2009 Pneumococcal Vaccine (1 of 1 - PCV) 01/06/2009 RSV Adult > 60+ Yrs or Pregn ant (1 - 1-dose 75+ series) 01/06/2019 Influenza Vaccine (#1) 2023 12/16/2019 Hepatitis B Vaccines Aged Out No long er eligible based on patient's age to complete this topic RSV Ped < 20 months Aged Out No longe r eligible based on patient's age to complete this topic Care Teams Backfiller Relationship Specialty Start Date End Date Austen Cevallos MD PCP - General Internal Medicine 08/26/21
--- OUTSIDE RECORDS SUMMARY | 2024-04-10 10:58 | XMS_ITS | Clinical Summary ---
Author Organization Patient Business Ser [facility] Address [address] [place] [address] Care Team Providers Care Mercerizing Range Controller Name Role Phone Austen Cevallos MD Primary Care Provider [phone] Allergies No known active allergies Medications Medication Sig Dispensed Refills Start Date End Date Status ascorbic acid (VITAMIN C) 250 MG chewable tablet Chew 1 tablet (250 mg total) 1 (one) time each day. 07/31/2023 Active cholecalciferol (VITAMIN D-3) 25 mcg (1,000 unit) tablet Take by mouth. Active omeprazole (PriLOSEC) [address] capsule Take 1 capsule (20 mg total) by mouth. 10/10/2023 10/04/2024 Active solifenacin (VESICARE) 5 mg tablet Take 1 tablet (5 mg total) by mouth 1 (one) time each day. 01/12/2022 Active terazosin (HYTRIN) 10 mg capsule Take 1 capsule (10 mg total) by mouth. 12/02/2021 Active MULTIVITAMIN ORAL Take 1 capsule by mouth. Active multivitamin (MULTIPLE VITAMINS ORAL) Take by mouth. Active sodium,potassium,m ag sulfates (SUPREP) 17.5-3.13-1.6 gram recon soln bowel prep kit oral solution Take 2 Bottles by mouth See Admin Instructions. SPLIT DOSE PREP INSTRUCTED 01/12/2023 Active amLODIPine (NORVASC) 5 mg tablet TAKE 1 TABLET BY MOUTH EVERY DAY 90 tablet 1 01/21/2024 Active finasteride (PROSCAR) 5 mg tablet Take 1 tablet (5 mg total) by mouth 1 (one) time each day. 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 Shepherd is suffering with back pain and numbness in the lower extremities. His walking is limited and this has been progressive in nature. We talked about surgical treatment including a multilevel lumbar decompression. He has not really tried any conservative treatment and he would like to start with that. He will begin with physical therapy. We talked about acupuncture, an inversion table, and even chiropractic treatment as reasonable conservative options. I told him that lumbar decompression was a reasonable option if and when he exhausted conservative modalities. He is welcome to follow-up with us in the future on an as-needed basis. 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 (Primary Dx); History of iron deficiency anemia; History of Helicobacter pylori infection; AVM (arteriovenous malformation) of colon 02/15/2024 Telephone Internal Medicine - [address] [phone] Austen Cevallos MD Joseph: Bloodwork Request from Last 3 Months Immunizations Name Administration Dates Next Due Influenza trivalent, 0.5mL ( Fluad) 65yo and older 04/05/2021,12/16/2019,02/23/2019, 018 Tdap Tetanus diptheria acell ular pertussis (Boostrix; Adacel) 7yo and older 01/01/2022 Surgical History Surgery Date Site/Laterality Comments COLONOSCOPY PROCEDURE: HISTORICAL COLONOSCOPY Medical History Medical History Date Comments Essential hypertension DX:Essent ial hypertension Family History Medical History Relation Name Comments Liver cancer Father Relation Name Status Comments Father Mother Social History Tobacco Use Types Packs/Day Years Used Date Smoking Tobacco: Every Day Smokeless Tobacco: Never Alcohol Use Standard Drinks/Week Comments Yes 0 (1 standard drink = 0.6 oz pur e alcohol) Sex and Gender Information Value Date Recorded Sex Assigned at Not on file Gender Identity Not on file Sexual Orientation Not on file Job Start Date Occupation Industry Not on file Not on file Not on file Obstetrics History Last Filed Vital Signs Vital Sign Reading Time Taken Comments Blood Pressure 150/72 02/15/2024 12:24 PM EST Pulse 70 02/15/2024 12:24 PM EST Temperature - - Respiratory Rate - - Oxygen Saturation 98% 02/15/2024 12:24 PM EST Inhaled Oxygen Concentration - - Weight 56.7 kg (125 lb) 02/15/2024 12:24 PM EST Height 170.2 cm (5' 7 ) 02/15/2024 12:24 PM EST Body Mass Index 19.58 02/15/2024 12:24 PM EST Plan of Treatment Upcoming Encounters Date Type Department Care Team (Late st Contact Info) Description 04/11/2024 11:00 AM EST Office Visit Internal Medicine - [place] [address] [facility] [address] [place] [phone] Austen Cevallos MD [address] [facility] [address] [place] [address] Health Maintenance Due Date Last Done Comments Pneumococcal Vaccine: 65+ Years (1 of 2 - PCV) 01/06/1951 Zoster Vaccines (1 of 2) 01/06/1994 RSV Immunization Patients 60+ Years Old (1 - 1-dose 75+ series) 01/06/2019 Depression Screening 01/09/2022 Falls Risk Assessment 01/09/2022 Medicare Annual Wellness Visit 01/09/2022 Social Influencers of Health Screening 01/09/2022 COVID-19 Vaccine ( - season) 2023 Influenza Vaccine (#1) 2023 2, 12/16/2019, 02/23/2019, Additional history exists Hypertension/CHF/CAD Annual BMP Blood Test 02/21/2025 02/22/2024, 10/10/2023, 10/10/2023 Cholesterol Screening (Lipid Panel) 10/09/2028 10/10/2023, 10/10/2023 DTaP,Tdap,and Td Vaccines (2 - Td or Tdap) 01/02/2032 01/01/2022 HIB Vaccines Aged Out No longer eligi ble based on patient's age to complete this topic HPV Vaccines Aged Out No longer eligi ble based on patient's age to complete this topic Hepatitis A Vaccines Aged Out No long er eligible based on patient's age to complete this topic Hepatitis B Vaccines Aged Out No long er eligible based on patient's age to complete this topic IPV Vaccines Aged Out No longer eligi ble based on patient's age to complete this topic MMR Vaccines Aged Out No longer eligi ble based on patient's age to complete this topic Meningococcal ACWY Vaccine Aged Out N o longer eligible based on patient's age to complete this topic RSV Immunization Patients Under 20 months Aged Out No longer eligible based on patient's age to complete this topic Varicella Vaccines Aged Out No longer eligible based on patient's age to complete this topic Procedures Procedure Name Priority Date/Time Associated Diagnosis Comments EXTERNAL CLINICAL LAB 02/29/2024 CBC WITH AUTO DIFFERENTIAL Routine 02/22/2024 10:02 AM EST Iron deficiency anemia due to chronic blood loss Spinal stenosis of lumbar region with neurogenic claudication CBC AND DIFFERENTIAL Routine 02/22/2024 10:02 AM EST Iron deficiency anemia due to chronic blood loss Spinal stenosis of lumbar region with neurogenic claudication COMPREHENSIVE METABOLIC PANEL Routine 02/22/2024 10:02 AM EST Iron deficiency anemia due to chronic blood loss Spinal stenosis of lumbar region with neurogenic claudication LIPID PANEL Routine 10/10/2023 from Last 3 Months or Most Recently Relevant to Health Maintenance Results * External clinical lab (02/29/2024) Provider [facility] LAB BLOOD ORDERA BLES * (ABNORMAL) CBC auto differential (02/22/2024 10:02 AM EST) [facility] WBC 7.6 4.8 - 10.8 K/mcL LAB HEMETOLOGY METHOD 02/22/2024 12:15 PM [facility] RBC 4.50 4.50 - 5.50 M/mcL LAB HEMETOLOGY METHOD 02/22/2024 12:15 PM [facility] Hemoglobin 13.7 13.5 - 17.5 g/dL LAB HEMETOLOGY METHOD 02/22/2024 12:15 PM [facility] Hematocrit 42.1 42.0 - 54.0 % LAB HEMETOLOGY METHOD 02/22/2024 12:15 PM [facility] MCV 94.0 79.0 - 98.0 FL LAB HEMETOLOGY METHOD 02/22/2024 12:15 PM [facility] MCH 30.6 27.0 - 32.0 pcg LAB HEMETOLOGY METHOD 02/22/2024 12:15 PM [facility] MCHC 32.5 32.0 - 37.0 g/dL LAB HEMETOLOGY METHOD 02/22/2024 12:15 PM [facility] RDW 13.2 11.0 - 15.0 % LAB HEMETOLOGY METHOD 02/22/2024 12:15 PM [facility] Platelets 247 130 - 400 K/mcL LAB HEMETOLOGY METHOD 02/22/2024 12:15 PM [facility] MPV 11.2(H) 7.0 - 11.0 FL LAB HEMETOLOGY METHOD 02/22/2024 12:15 PM [facility] NRBC 0.0 <1.0 % LAB HEMETOLOGY METHOD 02/22/2024 12:15 PM [facility] NRBC Absolute 0.00 <0.10 K/mcL LAB HEMETOLOGY METHOD 02/22/2024 12:15 PM [facility] Neutrophils Relative 50.7 % LAB HEMETOLOGY METHOD 02/22/2024 12:15 PM [facility] Lymphocytes Relative 34.5 % LAB HEMETOLOGY METHOD 02/22/2024 12:15 PM [facility] Monocytes Relative 8.7 % LAB HEMETOLOGY METHOD 02/22/2024 12:15 PM [facility] Eosinophils Relative 4.6 % LAB HEMETOLOGY METHOD 02/22/2024 12:15 PM [facility] Basophils Relative 1.2 % LAB HEMETOLOGY METHOD 02/22/2024 12:15 PM [facility] Immature Granulocytes Relative 0.3 % LAB HEMETOLOGY METHOD 02/22/2024 12:15 PM [facility] Neutrophils Absolute 3.84 1.50 - 7.00 K/mcL LAB HEMETOLOGY METHOD 02/22/2024 12:15 PM [facility] Lymphocytes Absolute 2.61 1.00 - 5.00 K/mcL LAB HEMETOLOGY METHOD 02/22/2024 12:15 PM [facility] Monocytes Absolute 0.66 0.20 - 1.00 K/mcL LAB HEMETOLOGY METHOD 02/22/2024 12:15 PM [facility] Eosinophils Absolute 0.35 0.00 - 0.50 K/mcL LAB HEMETOLOGY METHOD 02/22/2024 12:15 PM [facility] Basophils Absolute 0.09 0.00 - 0.20 K/mcL LAB HEMETOLOGY METHOD 02/22/2024 12:15 PM [facility] Immature Granulocytes Absolute 0.02 0.00 - 0.03 K/mcL LAB HEMETOLOGY METHOD 02/22/2024 12:15 PM [facility] Blood Venous blood specimen / Unknown Venipuncture / Unknown 02/22/2024 10:02 AM EST 02/22/2024 10:02 AM EST Austen Cevallos MD LAB BLOOD ORDERABLES [facility] [address] [place] [address], * Comprehensive metabolic panel (02/22/2024 10:02 AM EST) Sodium 144 133 - 145 mmol/L LAB CHEMISTRY METHOD 02/22/2024 4:28 PM [facility] Potassium 4.1 3.5 - 5.5 mmol/L LAB CHEMISTRY METHOD 02/22/2024 4:28 PM [facility] Chloride 107 96 - 110 mmol/L LAB CHEMISTRY METHOD 02/22/2024 4:28 PM [facility] CO2 32 21 - 32 mmol/L LAB CHEMISTRY METHOD 02/22/2024 4:28 PM [facility] Anion Gap 5 3 - 11 LAB CHEMISTRY METHOD 02/22/2024 4:28 PM [facility] Glucose 92 70 - 100 mg/dL LAB CHEMISTRY METHOD 02/22/2024 4:28 PM [facility] BUN 12 5 - 25 mg/dL LAB CHEMISTRY METHOD 02/22/2024 4:28 PM [facility] Creatinine 1.13 0.70 - 1.30 mg/dL LAB CHEMISTRY METHOD 02/22/2024 4:28 PM [facility] eGFR 66 >=60 mL/min/1. 73m2 LAB CHEMISTRY METHOD 02/22/2024 4:28 PM [facility] Comment:Calculation based on the??Chronic Kidney Disease Epidemiology Collaboration (CKD-EPI) equation refit??without adjustment for race. BUN/Creatinine Ratio 10.6 LAB CHEMISTRY METHOD 02/22/2024 4:28 PM [facility] Calcium 9.4 8.5 - 10.5 mg/dL LAB CHEMISTRY METHOD 02/22/2024 4:28 PM [facility] AST (SGOT) 21 10 - 42 unit/L LAB CHEMISTRY METHOD 02/22/2024 4:28 PM [facility] ALT (SGPT) 23 10 - 60 unit/L LAB CHEMISTRY METHOD 02/22/2024 4:28 PM [facility] Alkaline Phosphatase 90 42 - 121 unit/L LAB CHEMISTRY METHOD 02/22/2024 4:28 PM [facility] Total Protein 6.8 6.0 - 8.0 g/dL LAB CHEMISTRY METHOD 02/22/2024 4:28 PM [facility] Albumin 3.8 3.2 - 5.0 g/dL LAB CHEMISTRY METHOD 02/22/2024 4:28 PM [facility] Total Bilirubin 0.4 0.0 - 1.4 mg/dL LAB CHEMISTRY METHOD 02/22/2024 4:28 PM [facility] Blood Venous blood specimen / Unknown Venipuncture / Unknown 02/22/2024 10:02 AM EST 02/22/2024 10:02 AM EST Austen Cevallos MD LAB BLOOD ORDERABLES [facility] [address] [place] [address], * (ABNORMAL) Lipid panel (10/10/2023) LDL/HDL Ratio 4 0 - 4 Triglycerides 140 0 - 150 mg/dL Cholesterol 198 0 - 200 mg/dL HDL 55 40 mg/dL LDL Cholesterol 115(A) 0 - 100 mg/dL Blood Venous blood specimen / Unknown Historical Provider LAB BLOOD ORDERAB LES from Last 3 Months or Most Recently Relevant to Health Maintenance Care Teams Mercerizing Range Controller Relationship Specialty Start Date End Date Austen Cevallos MD PCP - General Internal Medicine 08/22/18
== END 2024-04-10 08:04 | disposition home or self-care (01) ==
LOC: HO.US 08:03
PROVIDERS: PCP Internal Medicine; Visit Provider Urology
DX: R97.20 Elevated prostate specific antigen [PSA] (principal)
CPT/HCPCS: 55700; 76942; 88305; J2003

== ENCOUNTER → 2024-04-10 08:03 | Outpatient (BNV) | payer MEDICARE, SELFPAY | PROVIDERS: PCP Internal Medicine; Visit Provider Urology | DX: R97.20 Elevated prostate specific antigen [PSA] (principal) | CPT/HCPCS: 55700; 76872; 76942 ==

== ENCOUNTER 2024-04-25 15:11 | Outpatient (AMB) | payer MEDICARE, SELFPAY ==
--- OUTSIDE RECORDS SUMMARY | 2024-04-25 15:13 | XMS_ITS | Clinical Summary ---
Author Organization [facility] Address [address] [place] [address] Care Team Providers Care Personal Banking Representative Name Role Phone Austen Cevallos MD Primary [...] age to complete this topic Care Teams Personal Banking Representative Relationship Specialty Start Date End Date Austen Cevallos MD PCP - General Internal Medicine 08/26/21
--- OUTSIDE RECORDS SUMMARY | 2024-04-25 15:13 | XMS_ITS | Clinical Summary ---
Author Organization Patient Business Ser [facility] Address [address] [place] [address] Care Team Providers Care Counterintelligence Agent Name Role Phone Austen Cevallos MD Primary Care Provider [phone] Allergies No known active allergies Medications ascorbic acid (VITAMIN C) 250 MG chewable tablet Chew 1 tablet (250 mg total) 1 (one) time each day. 4 Active cholecalciferol (VITAMIN D-3) 25 mcg (1,000 unit) tablet Take by mouth. Ac tive omeprazole (PriLOSEC) [address] capsule Take 1 capsule (20 mg total) by mouth. 4 10/05/19 25 Active solifenacin (VESICARE) 5 mg tablet Take 1 tablet (5 mg total) by mouth 1 (one) time each day. 2 Active terazosin (HYTRIN) 10 mg capsule Take 1 capsule (10 mg total) by mouth. 2 Active MULTIVITAMIN ORAL Take 1 capsule by mouth. Active multivitamin (MULTIPLE VITAMINS ORAL) Take by mouth. Active sodium,potassiu m,mag sulfates (SUPREP) 17.5-3.13-1.6 gram recon soln bowel prep kit oral solution Take 2 Bottles by mouth See Admin Instructions. SPLIT DOSE PREP INSTRUCTED 3 Active amLODIPine (NORVASC) 5 mg tablet TAKE 1 TABLET BY MOUTH EVERY DAY 90 tablet 1 4 Active finasteride (PROSCAR) 5 mg tablet Take 1 tablet (5 mg total) by mouth 1 (one) time each day. 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 (Primary Dx); History of iron deficiency anemia; History of Helicobacter pylori infection; AVM (arteriovenous malformation) of colon 02/15/2024 Telephone Internal Medicine - [address] [phone] Austen Cevallos MD Joseph: Bloodwork Request from [...] Recorded Sex Assigned at Not on file Legal Sex Male 10:53 AM EDT Gender Identity Not on file Sexual Orientation Not on file Obstetrics History Last Filed [...] Care Team (Late st Contact Info) Description 05/30/2024 10:30 AM EDT Office Visit Internal Medicine - [place] [address] [facility] [address] [place] [phone] Austen Cevallos MD 175 [facility] [address] [place] [address] Health Maintenance Due Date Last Done Comments Pneumococcal Vaccine: 50+ Years (1 of 2 - PCV) 01/06/1964 Zoster Vaccines (1 of 2) 01/06/1994 RSV Immunization Patients 60+ Years Old (1 - 1-dose 75+ series) 01/06/2019 Depression Screening 01/09/2022 Falls Risk Assessment 01/09/2022 Medicare Annual Wellness Visit 01/09/2022 Social Influencers of Health Screening 01/09/2022 COVID-19 Vaccine ( - season) 2023 Influenza Vaccine (#1) 2023 , 12/16/2019, 02/23/2019, Additional history exists Hypertension/CHF/CAD Annual [...] patient's age to complete this topic Meningococcal B Vacine Aged Out No lo nger eligible based on patient's age to complete [...] Results * External clinical lab (02/29/2024) Provider [facility] LAB BLOOD ORDERABLES Fin al Result * (ABNORMAL) CBC auto differential (02/22/2024 10:02 AM EST) WBC 7.6 4.8 - 10.8 K/mcL LAB HEMETOLOGY METHOD 02/22/2024 12:15 PM [facility] RBC 4.50 4.50 - 5.50 M/mcL LAB HEMETOLOGY METHOD 02/22/2024 12:15 PM [facility] Hemoglobin 13.7 13.5 - 17.5 g/dL LAB HEMETOLOGY METHOD 02/22/2024 12:15 PM [facility] Hematocrit 42.1 42.0 - 54.0 % LAB HEMETOLOGY METHOD 02/22/2024 12:15 PM [facility] MCV 94.0 79.0 - 98.0 FL LAB HEMETOLOGY METHOD 02/22/2024 12:15 PM [facility] MCH 30.6 27.0 - 32.0 pcg LAB HEMETOLOGY METHOD 02/22/2024 12:15 PM [facility] MCHC 32.5 32.0 - 37.0 g/dL LAB HEMETOLOGY METHOD 02/22/2024 12:15 PM [facility] RDW 13.2 11.0 - 15.0 % LAB HEMETOLOGY METHOD 02/22/2024 12:15 PM [facility] Platelets 247 130 - 400 K/mcL LAB HEMETOLOGY METHOD 02/22/2024 12:15 PM [facility] MPV 11.2(H) 7.0 - 11.0 FL LAB HEMETOLOGY METHOD 02/22/2024 12:15 PM [facility] NRBC 0.0 <1.0 % LAB HEMETOLOGY METHOD 02/22/2024 12:15 PM [facility] NRBC Absolute 0.00 <0.10 K/mcL LAB HEMETOLOGY METHOD 02/22/2024 12:15 PM [facility] Neutrophils Relative 50.7 % LAB HEMETOLOGY METHOD 02/22/2024 12:15 PM [facility] Lymphocytes Relative 34.5 % LAB HEMETOLOGY METHOD 02/22/2024 12:15 PM [facility] Monocytes Relative 8.7 % LAB HEMETOLOGY METHOD 02/22/2024 12:15 PM [facility] Eosinophils Relative 4.6 % LAB HEMETOLOGY METHOD 02/22/2024 12:15 PM [facility] Basophils Relative 1.2 % LAB HEMETOLOGY METHOD 02/22/2024 12:15 PM [facility] Immature Granulocytes Relative 0.3 % LAB HEMETOLOGY METHOD 02/22/2024 12:15 PM [facility] Neutrophils Absolute 3.84 1.50 - 7.00 K/mcL LAB HEMETOLOGY METHOD 02/22/2024 12:15 PM [facility] Lymphocytes Absolute 2.61 1.00 - 5.00 K/mcL LAB HEMETOLOGY METHOD 02/22/2024 12:15 PM [facility] Monocytes Absolute 0.66 0.20 - 1.00 K/mcL LAB HEMETOLOGY METHOD 02/22/2024 12:15 PM [facility] Eosinophils Absolute 0.35 0.00 - 0.50 K/mcL LAB HEMETOLOGY METHOD 02/22/2024 12:15 PM [facility] Basophils Absolute 0.09 0.00 - 0.20 K/mcL LAB HEMETOLOGY METHOD 02/22/2024 12:15 PM [facility] Immature Granulocytes Absolute 0.02 0.00 - 0.03 K/mcL LAB HEMETOLOGY METHOD 02/22/2024 12:15 PM [facility] Blood Venous blood specimen / Unknown Venipuncture / Unknown 02/22/2024 10:02 AM EST 02/22/2024 10:02 AM EST Austen Cevallos MD LAB BLOOD ORDERABLES Final Resul t [facility] [address] [place] [address], * Comprehensive metabolic panel (02/22/2024 10:02 AM EST) Sodium 144 133 - 145 mmol/L LAB CHEMISTRY METHOD 02/22/2024 4:28 PM [facility] Potassium 4.1 3.5 - 5.5 mmol/L LAB CHEMISTRY METHOD 02/22/2024 4:28 PM [facility] Chloride 107 96 - 110 mmol/L LAB CHEMISTRY METHOD 02/22/2024 4:28 PM [facility] CO2 32 21 - 32 mmol/L LAB CHEMISTRY METHOD 02/22/2024 4:28 PM [facility] Anion Gap 5 3 - 11 LAB CHEMISTRY METHOD 02/22/2024 4:28 PM [facility] Glucose 92 70 - 100 mg/dL LAB CHEMISTRY METHOD 02/22/2024 4:28 PM [facility] BUN 12 5 - 25 mg/dL LAB CHEMISTRY METHOD 02/22/2024 4:28 PM [facility] Creatinine 1.13 0.70 - 1.30 mg/dL LAB CHEMISTRY METHOD 02/22/2024 4:28 PM [facility] eGFR 66 >=60 mL/min/1. 73m2 LAB CHEMISTRY METHOD 02/22/2024 4:28 PM [facility] Comment:Calculation based on the??Chronic Kidney Disease Epidemiology Collaboration (CKD-EPI) equation refit??without adjustment for race. BUN/Creatinine Ratio 10.6 LAB CHEMISTRY METHOD 02/22/2024 4:28 PM [facility] Calcium 9.4 8.5 - 10.5 mg/dL LAB CHEMISTRY METHOD 02/22/2024 4:28 PM [facility] AST (SGOT) 21 10 - 42 unit/L LAB CHEMISTRY METHOD 02/22/2024 4:28 PM [facility] ALT (SGPT) 23 10 - 60 unit/L LAB CHEMISTRY METHOD 02/22/2024 4:28 PM [facility] Alkaline Phosphatase 90 42 - 121 unit/L LAB CHEMISTRY METHOD 02/22/2024 4:28 PM [facility] Total Protein 6.8 6.0 - 8.0 g/dL LAB CHEMISTRY METHOD 02/22/2024 4:28 PM [facility] Albumin 3.8 3.2 - 5.0 g/dL LAB CHEMISTRY METHOD 02/22/2024 4:28 PM [facility] Total Bilirubin 0.4 0.0 - 1.4 mg/dL LAB CHEMISTRY METHOD 02/22/2024 4:28 PM [facility] Blood Venous blood specimen / Unknown Venipuncture / Unknown 02/22/2024 10:02 AM EST 02/22/2024 10:02 AM EST Austen Cevallos MD LAB BLOOD ORDERABLES Final Resul t [facility] [address] [place] [address], * (ABNORMAL) Lipid panel (10/10/2023) LDL/HDL Ratio 4 0 - 4 Triglycerides 140 0 - 150 mg/dL Cholesterol 198 0 - 200 mg/dL HDL 55 >=40 mg/dL LDL Cholesterol 115(A) 0 - 100 mg/dL Blood Venous blood specimen / Unknown us Historical Provider LAB BLOOD ORDERABLES Kelly l Result from Last 3 Months or Most Recently Relevant to Health Maintenance Insurance [employer] Care Teams Counterintelligence Agent Relationship Specialty Start Date End Date Austen Cevallos MD PCP - General Internal Medicine 08/22/18
--- NOTE | 2024-04-25 15:17 | MHC.OFFVIS ---
Intake Visit Reasons: Prostate biopsy results Intake Note: Patient is present for PROSTAT BIOPSY RESULTS Urology Medication:FINASTERIDE,SILDENAFIL,SOLIFENACIN Antibiotic Allergy:NONE Blood Thinner:NONE General Medical Practitioner Required: No Allergies No Known Allergies Allergy (Verified 04/25/24 15:20) HPI Comments Details: Keon is a pleasant male. He is a patient of Dr. Cevallos. He is seen for the following urologic conditions - lower urinary tract symptoms - Peyronie's disease - erectile dysfunction - overactive bladder Prostate cancer - favorable intermediate, low volume disease Recommend surveillance Prolaris pending Follow-up prostate biopsy result Histologic type: Acinar adenocarcinoma Histologic grade: [place] score: 3+3=6 (C) 10%; 3+4=7(L) 30% Grade group: 1 (C); 2(L) Number cores positive: 2 Total number of cores: 12 TRUS biopsy 25 g, PSA 5.9 pT1c PVR remains in range on higher dose solifenacin Lower Urinary Tract Symptoms: Current visit is for further evaluation of, lower urinary tract symptoms, predominate irritative symptoms - effective urination maintained does take alpha-santos daily. Current treatment includes alpha santos. Prior treatments include medication, terazosin 10 mg - procedure, laser procedure office Oct 2015. - 10/31 GREENLIGHT LASER - improved stream Prostate Symptom Score Mild (0-8). Prior Prostate Score mild. PSA 07/26 1.8, 07/27 2.8, 07/28 2.4, 07/30 3.0, 11/01 5.0, 09/02 6.4, 03/04 5.7 5% Treatment plan PVR surveillance Recurring urinary tract infection 03/01 mixed kiera PFSH Medical History Low back pain Anemia Muscle pain UTI (urinary tract infection) HTN (hypertension) Incomplete emptying of bladder Weak urinary stream Peyronie's disease Surgical History Hx of cystoscopy Hx of colonoscopy History of surgery Social History Are you a primary point of care specialist to a significant other at home: No Do you presently have visiting nurse or other home services: No Comment: previously medicated with po tylenol and tramadol Patient Tobacco Use Status: Former Tobacco user Tobacco use type: Cigarette Review of Systems Const Denies chills and Denies fever(s) Card Reports no additional complaints and Denies syncope Resp Denies cough GI Denies abdominal pain and Denies heartburn Reports as per HPI and Denies change in libido Neuro Denies syncope Psych Denies change in libido Endo Denies change in libido Physical Exam Const General: cooperative, healthy appearing, comfortable and no acute distress Orientation/consciousness: patient oriented x3 HEENT Face and sinus: Yes normal facial exam Mouth: moist mucous membranes Neck Neck: Yes normal visual inspection, Yes full ROM and Yes trachea midline Chest Chest palpation & inspection: normal inspection of the chest Resp Effort & Inspection: normal respiratory effort, able to speak in complete sentences and no respiratory distress GI Inspection: Yes normal to inspection Back/Spine/Pelvis Cervical Spine: normal cervical lordosis Thoracic/Lumbar Spine: thoracic and lumbar spine normal to inspection Skin General skin exam: no rashes or lesions noted Neuro General: patient oriented x3, gait normal, tone normal and moves all extremities Extrem General: Yes normal to inspection and Yes capillary refill normal Assessment & Plan Assessment & Plan (1) Hormone sensitive prostate cancer: Code(s): C61 - Malignant neoplasm of prostate; Z19.1 - Hormone sensitive malignancy status Category: Medical Plan Follow-up Start surveillance Confirmed genetics Patient Instructions: This note is constructed using voice recognition software. While every effort has been made to ensure accuracy secondary school teacher errors may have been included. Imaging studies, laboratory and physical exam results were discussed and reviewed in detail. No major barriers to patient understanding were identified. An opportunity to ask questions regarding the treatment plan was provided. All questions were answered. The patient expressed understanding and agreement with the above treatment plan. The patient is aware they should contact our office by phone for worsening of their current condition or the appearance of new urologic symptoms. Compliance is encouraged with any medications and followup testing that is ordered. It is a privilege to participate in the urologic care of your patient. If you have any questions or concerns regarding treatment for the above conditions, or other urologic issues, please do not hesitate to contact me. The office telephone contact is [phone]. Sincerely, Dr Rafael Vincent MD, [facility] - Urology Compassionate Specialist Care for the Genitourinary System Coding Level of Care Code Est Pt Level 4 (51192) Complex EM visit Add On G2211 Diagnoses Hormone sensitive prostate cancer C61; Z19.1
== END 2024-04-25 16:12 | disposition home or self-care (01) ==
LOC: HO.HUSH 15:11
PROVIDERS: PCP Internal Medicine; Visit Provider Urology
DX: C61 Malignant neoplasm of prostate (principal); Z19.1 Hormone sensitive malignancy status
CPT/HCPCS: 99214; G2211

== ENCOUNTER → 2024-04-25 15:11 | Outpatient (BNVA) | payer MEDICARE, SELFPAY | PROVIDERS: PCP Internal Medicine; Visit Provider Urology | DX: C61 Malignant neoplasm of prostate (principal); N48.6 Induration penis plastica; N52.9 Male erectile dysfunction, unspecified; N32.81 Overactive bladder; Z19.1 Hormone sensitive malignancy status | CPT/HCPCS: 99212 ==

== ENCOUNTER 2024-06-27 11:11 | Outpatient (AMB) | payer MEDICARE, SELFPAY ==
--- NOTE | 2024-06-27 11:19 | MHC.OFFVIS ---
Intake Visit Reasons: Followup/Pathology/Biopsy Intake Note: Pt presents to the office today for a follow up/Pathology/Biopsy. PVR:0ml Allergies No Known Allergies Allergy (Verified 06/27/24 11:19) HPI Comments Details: Keon is a pleasant male. He is a patient of Dr. Cevallos. He is seen for the following urologic conditions - lower urinary tract symptoms - Peyronie's disease - erectile dysfunction - overactive bladder Two month follow-up Discussed biopsy results Discussed genetics which favor active surveillance Continue with finasteride and solifenacin for urinary urgency Prostate cancer - favorable intermediate, low volume disease Recommend surveillance Biopsy Test Report from [facility] with the following results: - Prolaris molecular score: 3.2 - Recommendation for treatment path: Active surveillance 04/05 Histologic type: Acinar adenocarcinoma Histologic grade: [place] score: 3+3=6 (C) 10%; 3+4=7(L) 30% Grade group: 1 (C); 2(L) Number cores positive: 2 Total number of cores: 12 TRUS biopsy 25 g, PSA 5.9 pT1c PVR remains in range on higher dose solifenacin Lower Urinary Tract Symptoms: Current visit is for further evaluation of, lower urinary tract symptoms, predominate irritative symptoms - effective urination maintained does take alpha-santos daily. Current treatment includes alpha santos. Prior treatments include medication, terazosin 10 mg - procedure, laser procedure office Oct 2015. - 10/31 GREENLIGHT LASER - improved stream Prostate Symptom Score Mild (0-8). Prior Prostate Score mild. PSA 07/26 1.8, 07/27 2.8, 07/28 2.4, 07/30 3.0, 11/01 5.0, 09/02 6.4, 03/04 5.7 5% Treatment plan PVR surveillance Recurring urinary tract infection 03/01 mixed kiera PFSH Medical History Low back pain Anemia Muscle pain UTI (urinary tract infection) HTN (hypertension) Incomplete emptying of bladder Weak urinary stream Peyronie's disease Surgical History Hx of cystoscopy Hx of colonoscopy History of surgery Social History Are you a primary administrator health care facility to a significant other at home: No Do you presently have visiting nurse or other home services: No Comment: previously medicated with po tylenol and tramadol Patient Tobacco Use Status: Former Tobacco user Tobacco use type: Cigarette Review of Systems Const Denies chills and Denies fever(s) Card Reports no additional complaints and Denies syncope Resp Denies cough GI Denies abdominal pain and Denies heartburn Reports as per HPI and Denies change in libido Neuro Denies syncope Psych Denies change in libido Endo Denies change in libido Physical Exam Const General: cooperative, healthy appearing, comfortable and no acute distress Orientation/consciousness: patient oriented x3 HEENT Face and sinus: Yes normal facial exam Mouth: moist mucous membranes Neck Neck: Yes normal visual inspection, Yes full ROM and Yes trachea midline Chest Chest palpation & inspection: normal inspection of the chest Resp Effort & Inspection: normal respiratory effort, able to speak in complete sentences and no respiratory distress GI Inspection: Yes normal to inspection Back/Spine/Pelvis Cervical Spine: normal cervical lordosis Thoracic/Lumbar Spine: thoracic and lumbar spine normal to inspection Skin General skin exam: no rashes or lesions noted Neuro General: patient oriented x3, gait normal, tone normal and moves all extremities Extrem General: Yes normal to inspection and Yes capillary refill normal Office Procedures Post Void Residual Post Residual Void Post Void Residual (PVR): 0 [id number] Void Residual by ultrasound Results AMB Urinalysis, Automated UA Leukoctes 0 Edwige/uL Last Edit by Laura Jenkins CMA on 06/27/24 11:28 UA Nitrite Negative Last Edit by Laura Jenkins CMA on 06/27/24 11:28 UA Urobilinogen 0.2 mg/dL Last Edit by Laura Jenkins CMA on 06/27/24 11:28 UA Protein 15 mg/dL Last Edit by Laura Jenkins CMA on 06/27/24 11:28 UA pH 6.0 Last Edit by Laura Jenkins CMA on 06/27/24 11:28 UA Blood 0 Mark/uL Last Edit by Laura Jenkins CMA on 06/27/24 11:28 UA Specific [place] 1.010 Last Edit by Laura Jenkins CMA on 06/27/24 11:28 UA Ketone Negative Last Edit by Laura Jenkins CMA on 06/27/24 11:28 UA Bilirubin 0 mg/dL Last Edit by Laura Jenkins CMA on 06/27/24 11:28 UA Glucose 0 mg/dL Last Edit by Laura Jenkins CMA on 06/27/24 11:28 Results Reviewed Results Reviewed: Laboratory Last Values Urine pH (Auto) 6.0 06/27/24 11:27 Specific [place] (Auto) 1.010 06/27/24 11:27 Urine Protein (Auto) 15 mg/dL 06/27/24 11:27 Glucose (UA)(Auto) 0 mg/dL 06/27/24 11:27 Urine Ketones (Auto) Negative 06/27/24 11:27 Urine Blood (Auto) 0 Mark/uL 06/27/24 11:27 Urine Nitrite (Auto) Negative 06/27/24 11:27 Urine Bilirubin (Auto) 0 mg/dL 06/27/24 11:27 Urine Urobilinogen (Auto) 0.2 mg/dL 06/27/24 11:27 Leukocyte Esterase (Auto) 0 Edwige/uL 06/27/24 11:27 Assessment & Plan Assessment & Plan (1) Hormone sensitive prostate cancer: Code(s): C61 - Malignant neoplasm of prostate; Z19.1 - Hormone sensitive malignancy status Category: Medical (2) Urgency of urination: Code(s): R39.15 - Urgency of urination Category: Medical Plan Refill finasteride Continue solifenacin Six-month surveillance PSA Orders: Orders AMB Urinalysis Automated Today R39.15 - Urgency of urination AMB Post Void Residual by ultrasound Today N13.8 - Other obstructive and reflux uropathy, N40.1 - Benign prostatic hyperplasia with lower urinary tract symptoms Prostate Specific Antigen 6 Months C61 - Malignant neoplasm of prostate, Z19.1 - Hormone sensitive malignancy status Medications: Refilled finasteride 5 mg PO DAILY 90 days 90 tabs 1RF N13.8 - Other obstructive and reflux uropathy, N40.0 - Benign prostatic hyperplasia without lower urinary tract symptoms, N40.1 - Benign prostatic hyperplasia with lower urinary tract symptoms, R33.9 - Retention of urine, unspecified, R97.20 - Elevated prostate specific antigen [PSA] Patient Instructions: This note is constructed using voice recognition software. While every effort has been made to ensure accuracy medical coding auditor errors may have been included. Imaging studies, laboratory and physical exam results were discussed and reviewed in detail. No major barriers to patient understanding were identified. An opportunity to ask questions regarding the treatment plan was provided. All questions were answered. The patient expressed understanding and agreement with the above treatment plan. The patient is aware they should contact our office by phone for worsening of their current condition or the appearance of new urologic symptoms. Compliance is encouraged with any medications and followup testing that is ordered. It is a privilege to participate in the urologic care of your patient. If you have any questions or concerns regarding treatment for the above conditions, or other urologic issues, please do not hesitate to contact me. The office telephone contact is [phone]. Sincerely, Dr Rafael Vincent MD, [facility] - Urology Compassionate Specialist Care for the Genitourinary System Coding Level of Care Code Est Pt Level 3 (06419) Complex EM visit Add On G2211 Diagnoses Hormone sensitive prostate cancer C61; Z19.1 Urgency of urination R39.15 CPT Codes Post Residual Void - PVR CPT Code: [id number] Void Residual by ultrasound ([id number])
--- OUTSIDE RECORDS SUMMARY | 2024-06-27 12:18 | XMS_ITS | Encounter Summary ---
Author Organization [employer] Address [address] [place] [address] Care Team Providers Care Endoscopy Tech Name Role Phone Mart Mooney MD Primary Care Provider + [phone] Reason for Visit * Reason Onset Date Comments Insurance Referral 06/25/2024 Encounter Details Date Type Department Care Team ([facility] st Contact Info) Description 06/25/2024 Telephone [facility]iology [address] [place] [phone] Keith Armenta MD [address] [place] [address] [address] [place] [address] Insurance Referral Social History Tobacco Use Types Packs/Day Years Used Date Smoking Tobacco: Every Day Smokeless Tobacco: Never Alcohol Use Standard Drinks/Week Comments Yes 0 (1 standard drink = 0.6 oz pur e alcohol) Interpersonal Safety Answer Date Record ed Physical Abuse 06/23/2024 Verbal Abuse 06/23/2024 Sex and Gender Information Value Date Recorded Sex Assigned at Male 06/23/2024 1:01 PM EDT Legal Sex Male 10:53 AM EDT Gender Identity Male 06/23/2024 1:01 PM EDT Sexual Orientation Straight 06/23/2024 1: 01 PM EDT documented as of this encounter Functional Status * Are you deaf or do you have serious difficulty hearing? Answer Date of Assessment Author No 06/23/2024 11:32 AM EDT Elizabeth Adamson RN * Are you blind or do you have serious difficulty seeing, even when wearing glasses? Answer Date of Assessment Author No 06/23/2024 11:32 AM EDT Elizabeth Adamson RN * Do you have serious difficulty walking or climbing stairs? Answer Date of Assessment Author No 06/23/2024 11:32 AM EDT Elizabeth Adamson RN * Do you have serious difficulty dressing or bathing? Answer Date of Assessment Author No 06/23/2024 11:32 AM EDT Elizabeth Adamson RN * Because of a physical, mental, or emotional condition, do you have serious difficulty doing errandsalone such as visiting the doctor? Answer Date of Assessment Author No 06/23/2024 11:32 AM EDT Elizabeth Adamson RN documented as of this encounter Mental Status * Because of a physical, mental, or emotional condition, do you have serious difficulty concentrating, remembering, or making decisions? (5 years old or older) Answer Entry Date Author No 06/23/2024 11:32 AM EDT Elizabeth Adamson RN documented in this encounter Progress Notes * Padmini Arnold - 06/25/2024 9:02 AM EDT Chloé Cevallos, My name is Padmini and I work in the Referrals/Prior Authorization Department for [facility]. This patient was ordered a carbon paste mixer operator for his most recent hospital admission. [facility] to be able to have the patient complete this test it requires an insurance referral. Our office is attempting to obtain an insurance referral however, the [place] referrals department is unable to submit the authorization request due to a no Ambulatory referral to Cardiology order inthe patient's chart. Can you please assist with submitting this order so we may work on obtaining the insurance referralfor this upcoming visit? Thank you very much for your assistance and I apologize for any inconvenience. documented in this encounter Plan of Treatment Upcoming Encounters Date Type Department Care Team (Late st Contact Info) Description 07/01/2024 10:00 AM EDT Office Visit Neurology - [address] [place] [phone] Jimi Ashton MD [address] [facility] [address] [place], [place] [id number] 12/04/2024 11:00 AM EDT Office Visit Internal Medicine - [place] [address] [facility] [address] [place] [phone] Austen Cevallos MD [address] [facility] [address] [place] [address] documented as of this encounter Visit Diagnoses Not on filedocumented in this encounter Care Teams Endoscopy Tech Relationship Specialty Start Date End Date Mart Mooney MD [address] [facility] [address] [place] [phone] PCP - General Internal Medicine 06/23/24 documented as of this encounter
--- OUTSIDE RECORDS SUMMARY | 2024-06-27 12:18 | XMS_ITS | Clinical Summary ---
Author Organization Patient Business [facility] Address [address] [place] [address] Care Team Providers Care Brim Shaper Name Role Phone Mart Mooney MD Primary Care Provider [phone] Allergies No known active allergies Medications solifenacin (VESICARE) 5 mg tablet Take 1 tablet (5 mg total) by mouth 1 (one) time each day. 01/13/20 22 Active terazosin (HYTRIN) 10 mg capsule Take 1 capsule (10 mg total) by mouth. 12/03/19 22 Active amLODIPine (NORVASC) 5 mg tablet TAKE 1 TABLET BY MOUTH EVERY DAY 90 tablet 1 01/21/20 24 Active finasteride (PROSCAR) 5 mg tablet Take 1 tablet (5 mg total) by mouth 1 (one) time each day. 12/01/19 24 Active aspirin 81 mg EC tablet Take 1 tablet (81 mg total) by mouth 1 (one) time each day. 30 each 06/26/19 25 025 Active atorvastatin (LIPITOR) 40 mg tablet Take 1 tablet (40 mg total) by mouth 1 (one) time each day. 30 each 06/25/19 25 025 Active ascorbic acid (VITAMIN C) 250 MG chewable tablet Chew 1 tablet (250 mg total) 1 (one) time each day. 07/31/19 24 025 Discontinued cholecalcifero l (VITAMIN D-3) 25 mcg (1,000 unit) tablet Take by mouth. 025 Discontinued omeprazole (PriLOSEC) [address] capsule Take 1 capsule (20 mg total) by mouth. 10/10/19 24 025 Discontinued MULTIVITAMIN ORAL Take 1 capsule by mouth. 025 Discontinued multivitamin (MULTIPLE VITAMINS ORAL) Take by mouth. 025 Discontinued sodium,potassi um,mag sulfates (SUPREP) 17.5-3.13-1.6 gram recon soln bowel prep kit oral solution Take 2 Bottles by mouth See Admin Instructions. SPLIT DOSE PREP INSTRUCTED 01/13/20 025 Discontinued(St op Taking at Discharge) Active Problems Problem Noted Date Diagnosed Date CVA (cerebral vascular accident) (CMS/HCC V24, C MS/HCC V28) 06/23/2024 History of Helicobacter pylori infection 024 History [...] Encounters Date Type Department Care Team Description 06/27/2024 Telephone Internal Medicine - [place] [address] [facility] [address] [place] [address] Austen Cevallos MD Referral (Urology Referral) 06/25/2024 Telephone [facility] [address] [facility] [address] [place] [address] Keith Armenta MD Insurance Referral 06/23/2024 11:18 AM EDT - 06/24/2024 6:02 PM EDT Hospital Encounter [facility] [address] [place] [address] Lena Reed MD Kela, Kashyap Devendrabhai, MD Peripheral vision loss, left (Primary Dx); Cerebrovascular accident (CVA) due to occlusion of right posterior cerebral artery (CMS/HCC V24, CMS/HCC V28) Discharge Disposition: Home or Self Care 05/30/2024 10:30 AM EDT Office Visit Internal Medicine - [place] [address] [facility] [address] [place] [phone] Austen Cevallos MD Primary hypertension (Primary Dx); Iron deficiency anemia due to chronic blood loss; Hypercholesterolemia from Last 3 Months Immunizations Name Administration [...] Orientation Straight 06/23/2024 1: 01 PM EDT Obstetrics History Last Filed Vital Signs Vital Sign Reading Time Taken Comments Blood Pressure 138/83 06/24/2024 3:26 PM EDT Pulse 72 06/24/2024 3:26 PM EDT Temperature 36.7 ??C (98 ??F) 06/24/2024 3:26 PM EDT Respiratory Rate 16 06/24/2024 3:26 PM EDT Oxygen Saturation 97% 06/24/2024 3:26 PM EDT Inhaled Oxygen Concentration - - Weight 54.9 kg (120 lb 15.8 oz) 06/24/2024 3:04 PM EDT Height 170.2 cm (5' 7.01 ) 06/24/2024 3:04 PM ED T Body Mass Index 18.94 06/24/2024 3:04 PM EDT Plan of Treatment Upcoming Encounters Date Type Department Care Team (Late st Contact Info) Description 07/01/2024 10:00 AM EDT Office Visit Neurology - [place] [address] [facility] [address] [place] [phone] Jimi Ashton MD [address] [place] [address] 12/04/2024 11:00 AM EDT Office Visit Internal Medicine - [place] [address] [place] [address] Austen Cevallos MD [address] [place] [address] Health Maintenance Due Date Last Done Comments Pneumococcal Vaccine: 50+ Years (1 of 2 - PCV) 01/06/1964 Zoster Vaccines (1 of 2) 01/06/1994 RSV Immunization Adult Patients (1 - 1-dose 75+ series) 01/06/2019 Depression Screening 01/09/2022 Medicare Annual Wellness Visit 01/09/2022 Social Influencers of Health Screening 01/09/2022 COVID-19 Vaccine ( - season) 2023 Influenza Vaccine (Season Ended) 2024 04/05/2021, 12/16/2019, 02/23/2019, Additional history exists Falls Risk Assessment 06/23/2025 06/23/2024 Hypertension/CHF/CAD Annual BMP Blood Test 06/24/2025 06/24/2024, 06/23/2024, 02/22/2024, Additional history exists Cholesterol Screening (Lipid Panel) 06/24/2029 06/24/2024, 10/10/2023, 10/10/2023 DTaP,Tdap,and Td Vaccines (2 - [...] age to complete this topic Meningococcal B Vaccine Aged Out No l onger eligible based on patient's age to complete this topic RSV Immunization Patients Under 20 months Aged Out No longer eligible based on patient's age to complete this topic Varicella Vaccines Aged Out No longer eligible based on patient's age to complete this topic Procedures Procedure Name Priority Date/Time Associated Diagnosis Comments TRANSTHORACIC ECHOCARDIOGRAM (TTE) COMPLETE Routine 06/24/2024 3:04 PM EDT Cerebrovascular accident (CVA) due to occlusion of right posterior cerebral artery (CMS/HCC V24, CMS/HCC V28) CT ANGIO HEAD/NECK WO AND/OR W CONTRAST STAT 06/24/2024 10:13 AM EDT CBC WITH AUTO DIFFERENTIAL Routine 06/24/2024 6:46 AM EDT LIPID PANEL WITH REFLEX TO DIRECT LDL Routine 06/24/2024 6:46 AM EDT CBC AND DIFFERENTIAL Routine 06/24/2024 6:46 AM EDT MAGNESIUM Routine 06/24/2024 6:46 AM EDT BASIC METABOLIC PANEL Routine 06/24/2024 6:46 AM EDT TROPONIN I HIGH SENSITIVITY STAT 06/23/2024 6:40 PM EDT MR BRAIN WO CONTRAST Routine 06/23/2024 6:[address] HEAD WO CONTRAST STAT 06/23/2024 1 1:52 AM EDT C-REACTIVE PROTEIN Add-On 06/23/2024 11 :30 AM EDT HEMOGLOBIN A1C Add-On 06/23/2024 11:30 AM EDT CBC WITH AUTO DIFFERENTIAL STAT 06/23/2024 11:30 AM EDT TROPONIN I HIGH SENSITIVITY STAT 06/23/2024 11:30 AM EDT MAGNESIUM STAT 06/23/2024 11:30 AM EDT BASIC METABOLIC PANEL STAT 06/23/2024 11:30 AM EDT CBC AND DIFFERENTIAL STAT 06/23/2024 11:30 AM EDT ECG 12-LEAD STAT 06/23/2024 11:28 AM EDT from Last 3 Months Results * (ABNORMAL) TRANSTHORACIC ECHOCARDIOGRAM (TTE) COMPLETE (06/24/2024 3:04 PM EDT) Left Atrium Major [place] 4.6 cm CV PACS LA Area Sys (A4C) 12 cm2 CV PACS AV Regurgitation PHT 364 ms CV PACS AR Max Velocity 4.2 m/s CV PACS Aortic Sinus Valsalva 3.3 cm CV PACS Ascending Aorta 3.4 cm CV PACS IVSD 1.0 0.6 - 1.0 cm CV PACS LVIDD 3.7(A) 4.2 - 5.8 cm CV PACS LVIDS 2.7 2.5 - 4.0 cm CV PACS LVOT Diameter 2.0 cm CV PACS LVOT Mean Charles 0.7 m/s CV PACS LVOT Mean Grad 2 mmHg CV PACS LVOT Peak VTI 19.4 cm CV PACS LVOT Peak Charles 1.1 m/s CV PACS LVOT Peak Gradient 4 mmHg CV PACS LVPWD 1.1(A) 0.6 - 1.0 cm CV PACS MV E' Tissue Velocity Lateral 7 cm/s CV PACS MV E' Tissue Velocity Septal 7 cm/s CV PACS GLS -14.6 % CV PACS GLS -14.8 % CV PACS GLS -16.0 % CV PACS GLS -15.1 % CV PACS LVOT Area 3.1 cm2 CV PACS LVOT Stroke Volume 61 mL CV PACS E Wave Deceleration Time 271(A) 119 - 242 ms CV PACS MV Peak A Charles 0.91 m/s CV PACS MV Peak E Charles 0.54 m/s CV PACS PV Acceleration Time 92 ms CV PACS RV Diastolic Basal Dimension 2.2(A) 2.5 - 4.1 cm CV PACS RV S' 13 cm/s CV PACS TAPSE 15 mm CV PACS E/E' Ratio Septal 8 CV PACS E/E' Ratio Averaged 8 CV PACS LVOT Stroke Index 37 mL/m2 CV PACS Relative Wall Thickness ratio 0.59 CV PACS FS 27 % CV PACS LV Mass 2D 121 g CV PACS Ascending Aorta Index 2.09 cm/m2 CV PACS LVOT flow 220 mL/s CV PACS LVIDD Index 2.27 cm/m2 CV PACS LVIDS Index 1.66 cm/m2 CV PACS E/A Ratio 0.6 CV PACS E/E' Ratio Lateral 8 CV PACS LV Mass Index 2D 74 g/m2 CV PACS BSA 1.61 m2 CV PACS Anatomical Region Laterality Modality Ultrasound Narrative 06/24/2024 3:37 PM EDT ?Left ventricle cavity size is normal. Left ventricle wall thickness is normal. ??No regional LV wall motion abnormalities noted.Left ventricular systolic function is in the normal range with an ejection fraction of 55-60%. ?Right ventricle cavity is normal. Right ventricular systolic function is normal. ?Mild aortic valve insufficiency. ??Mild aortic valve sclerosis without any stenosis. ?Thickened mitral leaflets without stenosis or insufficiency. ??The mitral cords seem a bit floppy and redundant. ?No other significant valvular abnormalities. ?Normal aortic root and ascending aorta. ?No prior echo for comparison. Left Ventricle Left ventricle cavity size is normal. Wall thickness is normal. Systolic function is normal with an ejection fraction of 55-60%. There are no regional LV wall motion abnormalities. There is age appropriate left ventricular diastolic function. Right Ventricle Right ventricle cavity appears normal. Systolic function is normal. Left Atrium Left atrium cavity size is normal. Right Atrium Right atrium cavity is normal. IVC/SVC Inferior vena cava structure is normal. Mitral Valve The leaflets are mildly thickened. There is trace regurgitation. There is no evidence of mitral valve stenosis. The Mitral chordal apparatus is a reduncdant fan floppy Tricuspid Valve The leaflets exhibit normal excursion. There is no regurgitation or stenosis. Aortic Valve The aortic valve is trileaflet. The leaflets are mildly thickened. There is mild regurgitation. There is no evidence of aortic valve stenosis. Pulmonic Valve Visualized portions of the pulmonic valve appear normal. There is no regurgitation or stenosis. Ascending Aorta The aorta appears normal in size. Pericardium Pericardium appears normal. There is no pericardial effusion. Study Details Overall the study quality was adequate. Additional technique includes myocardial strain. Lee Norris MD CV ECHO PROCEDURES Final Result * CT Angio Head/Neck wo and/or w Contrast (06/24/2024 10:13 AM EDT) Anatomical Region Laterality Modality Head and Neck Computed Tomogra phy 06/24/2024 10:3 9 AM EDT Impressions 06/24/2024 10:57 AM EDT 1. Focal area of diminished attenuation in the right occipital lobe, without associated hemorrhage or mass effect, consistent with the known acute infarct, with MR correlation. 2. No acute intracranial hemorrhage or mass effect. 3. No large vessel occlusion, aneurysm, dissection, or hemodynamically significant cervical carotid stenosis. [employer] MOON ([id number]) -------- FINAL REPORT -------- Dictated By: Mary Butler Dictated Date: 06/24/2024 10:39 ET Assigned Physician: Mary Butler Reviewed and Electronically Signed By: Mary Butler Signed Date: 06/24/2024 10:57 ET Workstation ID: [id number] Transcribed By: Self Edit Transcribed Date: 06/24/2024 10:39 ET Narrative 06/24/2024 10:57 AM EDT History: Right occipital stroke. Left sided visual field defect. Comparison: Brain MRI 06/23/24, brain CT 06/23/24 Technique: Helical volumetric imaging of the head and neck was performed, during the rapid, uneventful intravenous administration of 90cc's Isovue-370, using the CT angiography protocol tailored for evaluation of the neck and intracranial vasculature. Coronal and sagittal images were reformatted from the original data set and maximum intensity pixel images were reviewed, in multiple planes. Precontrast and delayed postcontrast axial imaging through the brain was also performed. DLP: 2613.28 mGy/cm [employer] Iterative reconstruction technique FINDINGS: Noncontrast brain CT: A focal area of diminished attenuation is again seen in the right occipital lobe, consistent with the known acute infarct, with MR correlation. There is no significant associated mass effect and no acute hemorrhage is seen. Extensive, nearly confluent deep white matter hypodensity is present bilaterally, unaccompanied by mass effect or hemorrhage and unchanged. A chronic right basal ganglia lacunar infarct is again noted. No abnormal extra-axial masses or fluid collections are seen. There is no evidence of acute intracranial hemorrhage. CTA: INTRACRANIAL VASCULATURE: No large vessel occlusion is identified. The bilateral A1 and M1 segments are patent. The basilar artery terminates in the bilateral superior cerebellar arteries. The ed educational aide are patent, supplied by the internal carotid arteries bilaterally, an anatomic variant. No aneurysm is identified. The major intracranial venous sinuses are patent. AORTIC ARCH: Atherosclerotic calcification of the aortic arch is noted. There is a two-vessel aortic arch branching pattern (bovine variant). The arch vessels are patent. RIGHT CAROTID ARTERY: The right common, internal and external carotid arteries are patent. A moderate amount of mural thrombus/noncalcified plaque is seen within the proximal and middle thirds of the common carotid artery, with approximately 40 percent diameter narrowing of the vessel. Moderate calcified plaque is seen at the level of the carotid bulb, without associated hemodynamically significant stenosis by NASCET criteria. Atherosclerotic calcification of the intracranial portion of the ICA is also seen. No carotid dissection is identified. LEFT CAROTID ARTERY: The left common, internal and external carotid arteries are patent. There is mild mural thrombus and calcification involving the proximal and mid portions of the CCA, without significant luminal narrowing. There is also mild to moderate calcified plaque at the level of the bulb without hemodynamically significant narrowing of the ICA. Mild atherosclerotic calcification of the intracranial portion of the ICA is also seen. No carotid dissection is identified. VERTEBRAL ARTERIES: The vertebral arteries are patent throughout their course. The right vertebral artery is dominant. The vessels terminate in the basilar artery. No vertebral dissection is identified. Ancillary Findings: Cervical spondylosis and degenerative disc disease is noted with bilateral bony neural foraminal narrowing. Procedure Note Mary Butler MD - 06/24/2024 History: Right occipital stroke. Left sided visual field defect. Comparison: Brain MRI 06/23/24, brain CT 06/23/24 Technique: Helical volumetric imaging of the head and neck was performed,during the rapid, uneventful intravenous administration of 90cc'sIsovue-370, using the CT angiography protocol tailored for evaluation ofthe neck and intracranial vasculature. Coronal and sagittal images werereformatted from the original data set and maximum intensity pixel imageswere reviewed, in multiple planes. Precontrast and delayed postcontrast axial imaging through the brain wasalso performed. DLP: 2613.28 mGy/cm [employer] Iterative reconstruction technique FINDINGS: Noncontrast brain CT: A focal area of diminished attenuation is again seen in the rightoccipital lobe, consistent with the known acute infarct, with MRcorrelation. There is no significant associated mass effect and no acutehemorrhage is seen. Extensive, nearly confluent deep white matter hypodensity is presentbilaterally, unaccompanied by mass effect or hemorrhage and unchanged. Achronic right basal ganglia lacunar infarct is again noted. No abnormalextra-axial masses or fluid collections are seen. There is no evidence ofacute intracranial hemorrhage. CTA: INTRACRANIAL VASCULATURE: No large vessel occlusion is identified. Thebilateral A1 and M1 segments are patent. The basilar artery terminates inthe bilateral superior cerebellar arteries. The ed educational aide are patent, suppliedby the internal carotid arteries bilaterally, an anatomic variant. No aneurysm is identified. The major intracranial venous sinuses arepatent. AORTIC ARCH: Atherosclerotic calcification of the aortic arch is noted.There is a two-vessel aortic arch branching pattern (bovine variant). Thearch vessels are patent. RIGHT CAROTID ARTERY: The right common, internal and external carotidarteries are patent. A moderate amount of mural thrombus/noncalcifiedplaque is seen within the proximal and middle thirds of the common carotidartery, with approximately 40 percent diameter narrowing of the vessel.Moderate calcified plaque is seen at the level of the carotid bulb,without associated hemodynamically significant stenosis by NASCETcriteria. Atherosclerotic calcification of the intracranial portion of theICA is also seen. No carotid dissection is identified. LEFT CAROTID ARTERY: The left common, internal and external carotidarteries are patent. There is mild mural thrombus and calcificationinvolving the proximal and mid portions of the CCA, without significantluminal narrowing. There is also mild to moderate calcified plaque at thelevel of the bulb without hemodynamically significant narrowing of theICA. Mild atherosclerotic calcification of the intracranial portion of theICA is also seen. No carotid dissection is identified. VERTEBRAL ARTERIES: The vertebral arteries are patent throughout theircourse. The right vertebral artery is dominant. The vessels terminate inthe basilar artery. No vertebral dissection is identified. Ancillary Findings: Cervical spondylosis and degenerative disc disease is noted with bilateralbony neural foraminal narrowing. IMPRESSION: 1. Focal area of diminished attenuation in the right occipital lobe,without associated hemorrhage or mass effect, consistent with the knownacute infarct, with MR correlation. 2. No acute intracranial hemorrhage or mass effect. 3. No large vessel occlusion, aneurysm, dissection, or hemodynamicallysignificant cervical carotid stenosis. [employer] MOON ([id number]) -------- FINAL REPORT -------- Dictated By: Mary Butler Dictated Date: 06/24/2024 10:39 ET Assigned Physician: Mary Butler Reviewed and Electronically Signed By: Mary Butler Signed Date: 06/24/2024 10:57 ET Workstation ID: [id number] Transcribed By: Self Edit Transcribed Date: 06/24/2024 10:39 ET Lee Norris MD IMG CT PROCEDURES F inal Result * Lipid panel with reflex to direct LDL (06/24/2024 6:46 AM EDT) Pathologist [facility] Cholesterol 176 0 - 200 mg/dL LAB CHEMISTRY METHOD 06/24/2024 7:46 AM EDT [facility] Triglycerides 141 0 - 150 mg/dL LAB CHEMISTRY METHOD 06/24/2024 7:46 AM EDT [facility] HDL 52 >=40 mg/dL LAB CHEMISTRY METHOD 06/24/2024 7:46 AM EDT [facility] LDL Calculated 96 0 - 100 mg/dL LAB CHEMISTRY METHOD 06/24/2024 7:46 AM EDT [facility] VLDL Cholesterol Олег 28.2 mg/dL LAB CHEMISTRY METHOD 06/24/2024 7:46 AM EDT [facility] Non HDL Chol. (LDL+VLDL) 124 <145 mg/dL [facility] Chol/HDL Ratio 3.4 0.0 - 4.4 LAB CHEMISTRY METHOD 06/24/2024 7:46 AM EDT [facility] Blood Venous blood specimen / Unknown Venipuncture / Unknown 06/24/2024 6:46 AM EDT 06/24/2024 7:05 AM EDT us Kalyn MUSTAFA LAB BLOOD ORDERABLES Fi nal Result [facility] [address] [place] [address], * (ABNORMAL) CBC auto differential (06/24/2024 6:46 AM EDT) Only the most recent of2 resultswithin the time period is included. [facility] WBC 7.9 4.8 - 10.8 K/mcL LAB HEMETOLOGY METHOD 06/24/2024 7:20 AM EDT [facility] RBC 4.30(L) 4.50 - 5.50 M/mcL LAB HEMETOLOGY [facility] Hemoglobin 13.0(L) 13.5 - 17.5 g/dL LAB HEMETOLOGY METHOD 06/24/2024 7:20 AM [facility] Hematocrit 39.6(L) 42.0 - 54.0 % LAB HEMETOLOGY METHOD 06/24/2024 7:20 AM [facility] MCV 92.1 79.0 - 98.0 FL LAB HEMETOLOGY METHOD [facility]/24[facility]2024 7[facility] MCH 30.2 27.0 - 32.0 pcg LAB HEMETOLOGY METHOD 06/24/2024 7:20 AM [facility] MCHC 32.8 32.0 - 37.0 g/dL LAB HEMETOLOGY METHOD 06/24/2024 7:20 AM [facility] RDW 13.4 11.0 - 15.0 % LAB HEMETOLOGY METHOD 06/24/2024 7:20 AM [facility] Platelets 225 130 - 400 K/mcL LAB HEMETOLOGY METHOD 06/24/2024 7:20 AM [facility] MPV 10.6 7.0 - 11.0 FL LAB HEMETOLOGY METHOD 06/24/2024 7:20 AM [facility] NRBC 0.0 <1.0 % LAB HEMETOLOGY METHOD 06/24/2024 7:20 AM [facility] NRBC Absolute 0.00 <0.10 K/mcL LAB HEMETOLOGY METHOD 06/24/2024 7:20 AM [facility] Neutrophils Relative 49.9 % LAB HEMETOLOGY METHOD 06/24/2024 7:20 AM [facility] Lymphocytes Relative 36.8 % LAB HEMETOLOGY METHOD 06/24/2024 7:20 AM [facility] Monocytes Relative 8.3 % LAB HEMETOLOGY METHOD 06/24/2024 7:20 AM EDT [facility] Eosinophils Relative 3.4 % LAB HEMETOLOGY METHOD 06/24/2024 7:20 AM T [facility] Basophils Relative 1.3 % LAB HEMETOLOGY METHOD 06/24/2024 7:20 AM EDT [facility] Immature Granulocytes Relative 0.3 % LAB HEMETOLOGY METHOD 06/24/2024 7:20 AM EDT [facility] Neutrophils Absolute 3.92 1.50 - 7.00 K/mcL LAB HEMETOLOGY METHOD 06/24/2024 7:20 AM EDT [facility] Lymphocytes Absolute 2.89 1.00 - 5.00 K/mcL LAB HEMETOLOGY METHOD 06/24/2024 7:20 AM EDT [facility] Monocytes Absolute 0.65 0.20 - 1.00 K/mcL LAB HEMETOLOGY METHOD 06/24/2024 7:20 AM EDT [facility] Eosinophils Absolute 0.27 0.00 - 0.50 K/mcL LAB HEMETOLOGY METHOD [facility]24 [facility] Basophils Absolute 0.10 0.00 - 0.20 K/mcL LAB HEMETOLOGY METHOD 06/24/2024 7:20 AM EDT [facility] Immature Granulocytes Absolute 0.02 0.00 - 0.03 K/mcL LAB HEMETOLOGY METHOD 06/24/2024 7:20 AM T [facility] Blood Venous blood specimen / Unknown Venipuncture / Unknown 06/24/2024 6:46 AM EDT 06/24/2024 7:05 AM EDT us Kalyn MUSTAFA LAB BLOOD ORDERABLES Fi nal Result [facility] [address] [place] [address], [place] [phone] * Magnesium (06/24/2024 6:46 AM EDT) Only the most recent of2 resultswithin the time period is included. Magnesium 2.2 1.9 - 2.6 mg/dL LAB CHEMISTRY METHOD 06/24/2024 7:46 AM EDT [facility] Blood Venous blood specimen / Unknown Venipuncture / Unknown 06/24/2024 6:46 AM EDT 06/24/2024 7:05 AM EDT Kalyn MUSTAFA LAB BLOOD ORDERABLES Fi nal Result [facility] [address] [place] [address], * Basic metabolic panel (06/24/2024 6:46 AM EDT) Only the most recent of2 resultswithin the time period is included. Pathologist [facility] Sodium 141 133 - 145 mmol/L LAB CHEMISTRY METHOD 06/24/2024 7:46 AM [facility] Potassium 3.8 3.5 - 5.5 mmol/L LAB CHEMISTRY METHOD 06/24/2024 7:46 AM [facility] Chloride 108 96 - 110 mmol/L LAB CHEMISTRY METHOD 06/24/2024 7:46 AM [facility] CO2 29 21 - 32 mmol/L LAB CHEMISTRY METHOD 06/24/2024 7:46 AM [facility] Anion Gap 4 3 - 11 LAB CHEMISTRY METHOD 06/24/2024 7:46 AM [facility] Glucose 97 70 - 100 mg/dL LAB CHEMISTRY METHOD 06/24/2024 7:46 AM [facility] BUN 13 5 - 25 mg/dL LAB CHEMISTRY METHOD 06/24/2024 7:46 AM EDT [facility] Creatinine 0.88 0.70 - 1.30 mg/dL LAB CHEMISTRY METHOD 06/24/2024 7:46 AM EDT [facility] eGFR 87 >=60 mL/min/1. 73m2 LAB CHEMISTRY METHOD 06/24/2024 7:46 AM EDT [facility] Comment:Calculation based on the??Chronic Kidney Disease Epidemiology Collaboration (CKD-EPI) equation refit??without adjustment for race. BUN/Creatinine Ratio 14.8 LAB CHEMISTRY METHOD 06/24/2024 7:46 AM EDT [facility] Calcium 9.1 8.5 - 10.5 mg/dL LAB CHEMISTRY METHOD 06/24/2024 7:46 AM EDT [facility] Blood Venous blood specimen / Unknown Venipuncture / Unknown 06/24/2024 6:46 AM EDT 06/24/2024 7:05 AM EDT us Lena Reed MD LAB BLOOD ORDERABLES Final Res ult [facility] [address] [place] [address], * Troponin I high sensitivity (06/23/2024 6:40 PM EDT) Only the most recent of2 resultswithin the time period is included. High Sensitivity Troponin I 8 <=79 ng/L LAB CHEMISTRY METHOD 06/23/2024 7:18 PM EDT [facility] Blood Venous blood specimen / Unknown Venipuncture / Unknown 06/23/2024 6:40 PM EDT 06/23/2024 6:48 PM EDT Narrative [facility] - 06/23/2024 7:18 PM EDT High levels of biotin in samples may falsely decrease hsTroponin values. ??Use caution when interpreting hsTroponin results in patients taking biotin who exhibit renal impairment (eGFR <60) or in patients taking more than 20 mg/day of biotin. us Joseph Vora MD LAB BLOOD ORDERABLES Kelly sallie Result [facility] [address] [place] [address], [place] [phone] * MR Brain wo Contrast (06/23/2024 6:27 PM EDT) Anatomical Region Laterality Modality Head and Neck Magnetic Resonan ce 06/23/2024 6:51 PM EDT Addenda Addendum by Aiyana Stevenson MD on 06/23/2024 6:52 PM EDT ADDENDUM: This report was discussed with MOON Yepez on Jun 23, 2024 18:51:00 EDT. This document has been electronically signed by: Giovana Laughlin on 06/23/2024 18:52:17 Impressions 06/23/2024 6:51 PM EDT There are foci of acute infarction within the right occipital lobe and involving the right parieto-occipital and right temporo-occipital junctions. This document has been electronically signed by: Aiyana Scott MD on 06/23/2024 18:51:41 Narrative 06/23/2024 6:51 PM EDT INDICATION: Neuro deficit, acute, stroke suspected MR Brain without gadolinium Comparison: None Findings: There are multiple foci of restricted diffusion within the right occipital lobe and at the right parieto-occipital and right temporo-occipital junction. There is involutional change brain parenchyma, compatible with advanced age. There is moderately severe white matter disease. 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 No intra-axial mass or hemorrhage. No midline shift. No hydrocephalus. Vascular flow voids are intact. The orbits are normal. The sinuses and mastoid air cells are clear. No focal bone lesion. Procedure Note Aiyana Stevenson MD - 06/23/2024 INDICATION: Neuro deficit, acute, stroke suspected MR Brain without gadolinium Comparison: None Findings: There are multiple foci of restricted diffusion within the rightoccipital lobe and at the right parieto-occipital and right temporo-occipital junction. There is involutional change brain parenchyma, compatible with advanced age. There is moderately severe white matter disease. There is a focusof chronic infarction within the right basal ganglia. No intra-axial mass or hemorrhage. No midline shift. No hydrocephalus. Vascular flow voids are intact. The orbits are normal. The sinuses and mastoid air cells are clear. No focal bone lesion. IMPRESSION: There are foci of acute infarction within the right occipital lobe and involving the right parieto-occipital and right temporo-occipital junctions. This document has been electronically signed by: Aiyana Scott MD on 06/23/2024 18:51:41 Kalyn MUSTAFA IM MRI PROCEDURES Edit ed Result - Final * CT Head wo Contrast (06/23/2024 11:52 AM EDT) Anatomical Region Laterality Modality Head and Neck Computed Tomogra phy 06/23/2024 12:0 2 PM EDT Impressions 06/23/2024 12:06 PM EDT Remote right basal ganglia and right [employer] territory infarcts. ??Advanced chronic microvascular ischemic changes of the supratentorial white matter. ??No acute intracranial findings. -------- FINAL REPORT -------- Dictated By: Carlos Tapia Dictated Date: 06/23/2024 12:02 ET Assigned Physician: Carlos Tapia Reviewed and Electronically Signed By: Carlos Tapia Signed Date: 06/23/2024 12:06 ET Workstation ID: [id number] Transcribed By: Self Edit Transcribed Date: 06/23/2024 12:02 ET Narrative 06/23/2024 12:06 PM EDT PROCEDURE: Noncontrast head CT. HISTORY: Dizziness, non-specific. COMPARISON: 01/01/2022. TECHNIQUE: Noncontrast head CT with coronal and sagittal reformats. Dose length product: 717 mGy-cm. FINDINGS: BRAIN: No hemorrhage, edema, mass, or extra-axial fluid collection. ??No CT evidence of an acute large vessel infarct. ??Ventricles and sulci are age commensurate. ??Atherosclerotic calcifications of the carotid siphons. ??There is a stable small area of encephalomalacia in the high anterior right basal ganglia with associated ex vacuo dilatation of the anterior horn of the lateral ventricle. ??New area of cortical encephalomalacia in the right parietal and occipital lobe. ??Confluent hypoattenuation in the supratentorial white matter suggestive of advanced chronic microvascular ischemic disease. ORBITS: Lens implants. SINUSES/MASTOIDS: Hypoplastic right frontal sinus. CALVARIUM: Normal. OTHER: The skull base soft tissues are normal. Procedure Note Carlos Tapia MD - 06/23/2024 PROCEDURE: Noncontrast head CT. HISTORY: Dizziness, non-specific. COMPARISON: 01/01/2022. TECHNIQUE: Noncontrast head CT with coronal and sagittal reformats. Dose length product: 717 mGy-cm. FINDINGS: BRAIN: No hemorrhage, edema, mass, or extra-axial fluid collection. No CTevidence of an acute large vessel infarct. Ventricles and sulci are agecommensurate. Atherosclerotic calcifications of the carotid siphons.There is a stable small area of encephalomalacia in the high anteriorright basal ganglia with associated ex vacuo dilatation of the anteriorhorn of the lateral ventricle. New area of cortical encephalomalacia inthe right parietal and occipital lobe. Confluent hypoattenuation in thesupratentorial white matter suggestive of advanced chronic microvascularischemic disease. ORBITS: Lens implants. SINUSES/MASTOIDS: Hypoplastic right frontal sinus. CALVARIUM: Normal. OTHER: The skull base soft tissues are normal. IMPRESSION: Remote right basal ganglia and right [employer] territory infarcts. Advancedchronic microvascular ischemic changes of the supratentorial white matter.No acute intracranial findings. -------- FINAL REPORT -------- Dictated By: Carlos Tapia Dictated Date: 06/23/2024 12:02 ET Assigned Physician: Carlos Tapia Reviewed and Electronically Signed By: Carlos Tapia Signed Date: 06/23/2024 12:06 ET Workstation ID: [id number] Transcribed By: Self Edit Transcribed Date: 06/23/2024 12:02 ET us Lena Reed MD IMG CT PROCEDURES Final Result * C-reactive protein (06/23/2024 11:30 AM EDT) [facility] C-Reactive Protein <0.29 <=0.50 mg/dL LAB CHEMISTRY METHOD 06/23/2024 4:42 PM EDT [facility] Blood Venous blood specimen / Unknown Venipuncture / Unknown 06/23/2024 11:30 AM EDT 06/23/2024 12:05 PM EDT Kalyn MUSTAFA LAB BLOOD ORDERABLES Fi nal Result Performing Organization Address [facility]/ZIP Co de Phone Number [facility] [address] [place] [address], [place] [phone] * Hemoglobin A1c (06/23/2024 11:30 AM EDT) [facility] Hemoglobin A1C 5.6 <6.5 % LAB CHEMISTRY METHOD 06/23/2024 10:11 PM EDT [facility] Mean Bld Glu Estim. 114 mg/dL LAB CHEMISTRY METHOD 06/23/2024 10:11 PM EDT [facility] Blood Venous blood specimen / Unknown Venipuncture / Unknown 06/23/2024 11:30 AM EDT 06/23/2024 12:04 PM EDT Kalyn MUSTAFA LAB BLOOD ORDERABLES Fi nal Result [facility] [address] [place] [address], [place] [phone] * ECG 12 lead (06/23/2024 11:28 AM EDT) [facility] Ventricular Rate ECG 76 BPM GEMUSE Atrial Rate 76 BPM GEMUSE P-R Interval 158 ms GEMUSE QRS Duration 80 ms GEMUSE Q-T Interval 384 ms GEMUSE QTc 432 ms GEMUSE P Wave [place] 54 degrees GEMUSE R [place] -6 degrees GEMUSE T [place] 20 degrees GEMUSE ECG Interpretation Normal sinus rhythm Cannot exclude Inferior infarct , age undetermined Abnormal ECG No previous ECGs available Confirmed by Alex TITUS YUFENG ([id number]) on 06/23/2024 5:24:57 PM GEMUSE 06/23/2024 11:2 8 AM EDT 06/23/2024 5:24 PM EDT us Joseph Vora MD ECG ORDERABLES Final Res ult GEMUSE from Last 3 Months Insurance [employer] Advance Directives * Full Code - Default (Latest Code Status on File) Date Activated Date Inactivated Comments 06/23/2024 2:48 PM 06/24/2024 8:13 PM This is orde r is used when code status has not been discussed with the patient, or code status is otherwise unknown/unconfirmed To update the patient's code status, place a code status order. Do not modify or discontinue any currently active code status orders. Care Teams Brim Shaper Relationship Specialty Start Date End Date Mart Mooney MD [address] [id number] PCP - General Internal Medicine 06/23/24
--- OUTSIDE RECORDS SUMMARY | 2024-06-27 12:18 | XMS_ITS | Encounter Summary ---
Author Organization [id number] Address [address] [place] [address] Care Team Providers Care Fringe Maker Name Role Phone Mart Mooney MD Primary Care Provider + [phone] Reason for Visit * Reason Comments Eye Problem Changes in vision/di zziness x1 week * Auth/Cert (Routine) Specialty Diagnoses / Procedures Referred By Contac t Referred To Contact Diagnoses CVA (cerebral vascular accident) ([facility] V24, [facility] V28) Procedures [facility] IP/OBS CARE ADMIT/DISCHARGE SAME DATE MODERATE LEVEL Lena Reed MD [address] [place] [address] Phone: tel: fax: [facility] Emergency [address] [place] [address] Phone: tel: Referral ID Status Reason Start Date Expiration Date Visits Re quested Visits Authorized [id number] 1 1 Encounter Details Date Type Department Care Team (Latest Contact Info) Description 06/23/2024 11:18 AM EDT - 06/24/2024 6:02 PM EDT Hospital Encounter [facility] [address] [place] [address] Lena Reed MD [address] [place] [address] Lee Norris MD [address], [place] [id number] Peripheral vision loss, left (Primary Dx); Cerebrovascular accident (CVA) due to occlusion of right posterior cerebral artery ([facility] V24, [facility] V28) Discharge Disposition: Home or Self Care Social History Tobacco Use Types Packs/Day Years [...] PM EDT documented as of this encounter Last Filed Vital Signs Vital Sign Reading [...] Mass Index 18.94 06/24/2024 3:04 PM EDT documented in this encounter Functional Status * Are you deaf or do you have serious difficulty hearing? Answer Date of Assessment Author No 06/23/2024 11:32 AM EDT Shyanne Adamson RN * Are you blind or do you have serious difficulty seeing, even when wearing glasses? Answer Date of Assessment Author No 06/23/2024 11:32 AM EDT Shyanne Adamson RN * Do you have serious difficulty walking or climbing stairs? Answer Date of Assessment Author No 06/23/2024 11:32 AM EDT Shyanne Adamson RN * Do you have serious difficulty dressing or bathing? Answer Date of Assessment Author No 06/23/2024 11:32 AM EDT Shyanne Adamson RN * Because of a physical, mental, or emotional condition, do you have serious difficulty doing errandsalone such as visiting the doctor? Answer Date of Assessment Author No 06/23/2024 11:32 AM Shyanne Curtis RN documented as of this encounter Mental Status * Because of a physical, mental, or emotional condition, do you have serious difficulty concentrating, remembering, or making decisions? (5 years old or older) Answer Entry Date Author No 06/23/2024 11:32 AM EDShyanne Eubanks RN documented in this encounter Discharge Summaries * Lee Norris MD - 06/24/2024 2:55 PM EDT Images from the original note were not included. DISCHARGE SUMMARY Patient Information Keon Shepherd : 1945 [79 y.o.] Admitting Provider Lena Reed MD Discharge Provider Lee Norrsi MD, Lee Ureña* Primary Care Physician Mart Mooney MD Admission Date 06/23/2024 Discharge Date 06/24/2024 Discharge disposition-Home Summary of Hospital Problems Primary Discharge Diagnosis: Acute/subacute ischemic stroke Hospital Course Summary Admission HPI from H&P per admitting physician/AMRIT- 79-year-old male with PMH of hypertension, BPH, AVM of the colon, spinal stenosis, and recent diagnosis of prostate cancer presents to the ED for left- sided visual change Patient is accompanied by family who is providing history. She states patient had double vision/blurred vision on June 12 Over the last 10 days patient has been bumping into things, reporting blurred vision and unsteady on his feet. 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 No discomfort with extraocular movement. Patient wears glasses at baseline At baseline, patient has been forgetful x 6 months, generalized weakness. No slurred speech, facialdroop, dysphagia, focal deficit. Patient follows with urology, recent diagnosis of prostate cancer and has a follow-up on Sunday06/27/2024 Patient has a history of hypertension, current smoker. No history of diabetes, atrial fibrillation,CVA/TIA Vitals: 139/83, pulse 76, 99% on room air, respiratory rate 16, afebrile Labs: WBC 7, hemoglobin 14.3, hematocrit 44.1, glucose 101, creatinine 0. 9 7, magnesium 2.2. Troponin 7. 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 Advanced chronic microvascular ischemic changes of the supratentorial white matter. No acute intracranial findings Brief Hospital course -Presented with left eye vision field loss and double vision that started about 10 days ago. Patient does not have any other focal neurological deficit. Complete exam including cranial nerves and upper and lower extremity sensory and motor exam done. - CT scan brain done on admission which showed remote right basal ganglia and right [employer] territory infarcts. - MR brain without contrast showed acute infarction within the right occipital lobe and involving the right parieto-occipital and right temporoparietal junction. - CT angiogram head and neck showed no large vessel occlusion aneurysm dissection or hemodynamically significant cervical carotid stenosis. - Monitored on telemetry; remained in sinus rhythm. - Neurology consulted; recommended discharging patient on aspirin 81 mg daily and atorvastatin 40 mg daily. Recommended to not drive until cleared by PCP or neurology. - Reached out to funeral arranger Dr. Armenta who is going to set up bus monitor outpatient. - 2D echocardiogram done; pending results Case discussed in detail with patient's and daughter present bedside and all the questions answered appropriately. Physical Exam at time of Discharge Temp (24hrs), Av.7 ??C (98.1 ??F), Min:36.6 ??C (97.9 ??F), Max:36.8 ??C (98.3 ??F) Body mass index is 18.95 kg/m??. No results found for: PTWT , PTHT Physical Exam General-patient appears comfortable, no acute distress HEENT-NCAT Eyes-anicteric Cardiology-no significant murmur appreciated Respiratory-no significant wheezing appreciated abdomen-nontender nondistended Extremity-no significant lower extremity edema noted Neurology-awake alert oriented to time place and person Skin-warm and dry Follow-Up Instructions and Recommendations -Outpatient follow-up with funeral arranger Dr. Armenta with [facility] associate professor physician to set up bus monitor - Outpatient follow-up with neurology and ophthalmology. Discharge Medications Your medication list START taking these medications Instructions Last Dose Given Next Dose Due aspirin 81 mg EC tablet Start taking on: June 25, 2024 Take 1 tablet (81 mg total) by mouth 1 (one) time each day. atorvastatin 40 mg tablet Commonly known as: LIPITOR Take 1 tablet (40 mg total) by mouth 1 (one) time each day. CONTINUE taking these medications Instructions Last Dose Given Next Dose Due amLODIPine 5 mg tablet Commonly known as: NORVASC TAKE 1 TABLET BY MOUTH EVERY DAY finasteride 5 mg tablet Commonly known as: PROSCAR Take 1 tablet (5 mg total) by mouth 1 (one) time each day. solifenacin 5 mg tablet Commonly known as: VESICARE Take 1 tablet (5 mg total) by mouth 1 (one) time each day. terazosin 10 mg capsule Commonly known as: HYTRIN Take 1 capsule (10 mg total) by mouth. STOP taking these medications sodium,potassium,mag sulfates 17.5-3.13-1.6 gram recon soln bowel prep kit oral solution Commonly known as: SUPREP Where to Get Your Medications These medications were sent to [facility]/pharmacy #[id number] - [place] [id number] aspirin 81 mg EC tablet atorvastatin 40 mg tablet Lab Results Component Value Date GLUCOSE 97 06/24/2024 CALCIUM 9.1 06/24/2024 NA 141 06/24/2024 K 3.8 06/24/2024 CO2 29 06/24/2024 CL 108 06/24/2024 BUN 13 06/24/2024 CREATININE 0.88 06/24/2024 Lab Results Component Value Date WBC 7.9 06/24/2024 HGB 13.0 (L) 06/24/2024 HCT 39.6 (L) 06/24/2024 MCV 92.1 06/24/2024 PLT 225 06/24/2024 CT Angio Head/Neck wo and/or w Contrast Result Date: 06/24/2024 History: Right occipital stroke. Left sided [...] brain was also performed. DLP: 2613.28 mGy/cm Stroodleer Iterative reconstruction technique FINDINGS: Noncontrast brain CT: A focal area of diminished attenuation is again seen in the right occipital lobe, consistent with the known acute infarct, with MR correlation. There is no significant associated mass effect and no acute hemorrhage is seen. Extensive, nearly confluent deep white matter hypodensity is present b ilaterally, unaccompanied by mass effect or hemorrhage and unchanged. A chronic right basal ganglialacunar infarct is again noted. No abnormal extra-axial masses or fluid collections are seen. Thereis no evidence of acute intracranial hemorrhage. CTA: INTRACRANIAL VASCULATURE: No large vessel occlusion is identified. The bilateral A1 and M1 segments are patent. The basilar artery terminates in the bilateral superior cerebellar arteries. The laborer yard are patent, supplied by the internal carotid arteries bilaterally, an anatomic variant. No aneurysm is identified. The major intracranial venous sinuses are patent. AORTIC ARCH: Atherosclerotic calcification of the aortic arch is noted. There is atwo- vessel aortic arch branching pattern (bovine variant). The arch vessels are patent. RIGHT CAROTID ARTERY: The right common, internal and external carotid arteries are patent. A moderate amount ofmural thrombus/noncalcified plaque is seen within the proximal [...] terminate in the basilar artery. No vertebral d issection is identified. Ancillary Findings: Cervical spondylosis and degenerative disc disease is noted with bilateral bony neural foraminal narrowing. 1. Focal area of diminished attenuation in the right occipital lobe, without associated hemorrhage or mass effect, consistent with the known acute infarct, with MR correlation. 2. No acute intracranial hemorrhage or mass effect. 3. No large vessel occlusion, aneurysm, dissection, or hemodynamicallysignificant cervical carotid stenosis. Micaela MUSTAFA ([id number]) -------- FINAL REPORT -------- Dictated By: Mary Butler Dictated Date: 06/24/2024 10:39 ET Assigned Physician: Mary Butler Reviewed and Electronically Signed By: Mary Butler Signed Date: 06/24/2024 10:57 ET Workstation ID: [id number] Transcribed By: Self Edit Transcribed Date: 06/24/2024 10:39 ET MR Brain wo Contrast Addendum Date: 06/23/2024 ADDENDUM: This report was discussed with MOON Yepez on Jun 23, 2024 18:51:00 EDT. This document has been electronically signed by: Giovana Laughlin on 06/23/2024 18:52:17 Result Date: 06/23/2024 INDICATION: Neuro deficit, acute, stroke suspected [...] infarction within the right basal ganglia. No intra- axial mass or hemorrhage. No midline shift. No hydrocephalus. Vascular flow voids are intact. The orbits are normal. The sinuses and mastoid air cells are clear. No focal bone lesion. There are foci of acute infarction within the right occipital lobe and involving the right parieto-occipital and right temporo-occipital junctions. This document has been electronically signed by: Aiyana Scott MD on 06/23/2024 18:51:41 CT Head wo Contrast Result Date: 06/23/2024 PROCEDURE: Noncontrast head CT. HISTORY: Dizziness, non-specific. COMPARISON: 01/01/2022. TECHNIQUE: Noncontrast head CT with coronal and sagittal reformats. Dose length product: 717 mGy-cm. FINDINGS: BRAIN: No hemorrhage, edema, mass, or extra-axial fluid collection. No CT evidence of an acute large vessel infarct. Ventricles and sulci are age commensurate. Atherosclerotic calcifications of the carotid siphons. There is a stable small area of encephalomalacia in the high anterior right basal ganglia with associated ex vacuo dilatation of the anterior horn of the lateral ventricle. New area of cortical encephalomalacia in the right parietal and occipital lobe. Confluent hypoattenuation in the supratentorial white matter suggestive of advanced chronic microvascular ischemic disease. ORBITS: Lens implants. SINUSES/MASTOIDS: Hypoplastic right frontal sinus. CALVARIUM: Normal. OTHER: The skull base soft tissues are normal. Remote right basal ganglia and right [employer]PER[employer] territory infarcts. Advanced chronic microvascular ischemic changes of the supratentorial white matter. No acute intracranial findings. -------- FINAL REPORT -------- Dictated By: Carlos Tapia Dictated Date: 06/23/2024 12:02 ET Assigned Physician: Carlos Tapia Reviewed and Electronically Signed By: Carlos Tapia Signed Date: 06/23/2024 12:06 ET Workstation ID: [id number] Transcribed By: Self Edit Transcribed Date: 06/23/2024 12:02 ET documented in this encounter Discharge Instructions * Discharge Instructions* Lee Norris MD - 06/24/2024 1:42 PM EDT Changes in your medications are as mentioned below- - take medications as prescribed Special Instructions- - follow up outpatient with neurology. - Do not drive until cleared by ophthalmology or PCP. - follow up outpatient with cardiology to set up heart monitor. This has already been ordered by funeral arranger Dr Armenta with [facility]. If you develop any chest pain, shortness of breath, nausea, vomiting, palpitations, abdominal discomfort, worsening weakness, or any other symptoms then please contact 911. Please contact your primary care physician (family doctor) within 1 week of discharge. If you do not have a primary care provider, please contact one of the following to make arrangements to follow up. Bridgette Rivera Bridgette Nuñez Bridgette Calderon Bridgette Vidal * Attachments The following attachments cannot be sent through Care Everywhere. * Stroke (Australian) documented in this encounter Medications at Time of Discharge amLODIPine (NORVASC) 5 mg tablet TAKE 1 TABLET BY MOUTH EVERY DAY 90 tablet 1 01/21/2024 aspirin 81 mg EC tablet Take 1 tablet (81 mg total) by mouth 1 (one) time each day. 30 each 06/25/2024 07/25/2024 atorvastatin (LIPITOR) 40 mg tablet Take 1 tablet (40 mg total) by mouth 1 (one) time each day. 30 each 06/24/2024 07/24/2024 finasteride (PROSCAR) 5 mg tablet Take 1 tablet (5 mg total) by mouth 1 (one) time each day. 12/01/2023 solifenacin (VESICARE) 5 mg tablet Take 1 tablet (5 mg total) by mouth 1 (one) time each day. 01/12/2022 terazosin (HYTRIN) 10 mg capsule Take 1 capsule (10 mg total) by mouth. 12/02/2021 documented as of this encounter Ordered Prescriptions Prescription Sig Dispense Quantity Refills Last Filled Start Date End Date atorvastatin (LIPITOR) 40 mg tablet Take 1 tablet (40 mg total) by mouth 1 (one) time each day. 30 each 06/24/2024 07/24/2024 aspirin 81 mg EC tablet Take 1 tablet (81 mg total) by mouth 1 (one) time each day. 30 each 06/25/2024 07/25/2024 documented in this encounter Discharge Disposition Disposition Code Departure Means Destination Comment s Home or Self Care Wheelchair documented in this encounter Progress Notes * Bronwyn Bailon RN - 06/24/2024 4:24 PM EDT 06/24/24 1624 Initial Transition Plan Initial Transition Plan Home Discharge Planning Living Arrangements Spouse/significant other Type of Residence Private residence Assistive Devices None Support Systems Spouse/significant other;Children Medication Coverage Has Med Coverage Under Insurance Plan Yes Medication Affordability No concerns related to payment for meds Informed Choice Informed Choice Given? Yes JAMIE: 06/25 Barrier: echo results pending Plan: home self * MOON Garvin - 06/23/2024 9:33 PM EDT MRI resulted Discussed with family at bedside No change in plans * Rukhsana Varela RN - 06/23/2024 11:14 AM EDT Pt went to eye MD today for visual changes over the past week. OD noticed that he had a visual defect on the left side OU and states this could be caused by a stroke to go to the ER. Also c/o dizziness * MOON Yepez - 06/23/2024 11:09 AM EDT Emergency Medicine Note Patient Name: Keon Shepherd Initial Evaluation: 06/23/2024 : 1945 Patient's PCP: Mart Mooney MD Emergency Physician: MOON Yepez History of Present Illness Chief Complaint: Chief Complaint Patient presents with ??? Eye Problem Changes in vision/dizziness x1 week HPI: This is an 79-year-old male with past medical history significant for hypertension presenting with left-sided peripheral vision loss that initially occurred anywhere from 7 to 10 days ago, patient reports he was having double vision and dizziness and then woke up 1 morning unable to see well from the left eye, states he went to the mall and was bumping into people not realizing they were there. He did not seek any medical evaluation at that time but today went to his eye doctor who noted the vision loss and sent him to the emergency room for possible stroke. At this time, patient denies headache, dizziness, nausea, vomiting, lightheadedness, numbness, tingling, weakness, chest pain, pal pitations, shortness of breath, abdominal pain, bowel or bladder abnormalities. He does endorse vision changes in the left eye but is unable to describe them well. No history of stroke or TIA. He is not anticoagulated. Denies any trauma or pain to the affected eye. ROS: I have performed a ROS with the pertinent positives and negatives documented in the history ofpresent illness. Previous History Past Medical History: Diagnosis Date ??? Essential hypertension DX:Essential hypertension Past Surgical History: Procedure Laterality Date ??? COLONOSCOPY PROCEDURE: HISTORICAL COLONOSCOPY Social History Tobacco Use ??? Smoking status: Every Day ??? Smokeless tobacco: Never Substance Use Topics ??? Alcohol use: Yes ??? Drug use: Never Family History Problem Relation Name Age of Onset ??? Liver cancer Father has No Known Allergies. No current facility-administered medications on file prior to encounter. Current Outpatient Medications on File Prior to Encounter Medication Sig Dispense Refill ??? amLODIPine (NORVASC) 5 mg tablet TAKE 1 TABLET BY MOUTH EVERY DAY 90 tablet 1 ??? ascorbic acid (VITAMIN C) 250 MG chewable tablet Chew 1 tablet (250 mg total) 1 (one) time eachday. ??? cholecalciferol (VITAMIN D-3) 25 mcg (1,000 unit) tablet Take by mouth. ??? finasteride (PROSCAR) 5 mg tablet Take 1 tablet (5 mg total) by mouth 1 (one) time each day. ??? multivitamin (MULTIPLE VITAMINS ORAL) Take by mouth. (Patient not taking: Reported on 05/30/2024) ??? MULTIVITAMIN ORAL Take 1 capsule by mouth. ??? omeprazole (PriLOSEC) [address] capsule Take 1 capsule (20 mg total) by mouth. ??? sodium,potassium,mag sulfates (SUPREP) 17.5-3.13-1.6 gram recon soln bowel prep kit oral solution Take 2 Bottles by mouth See Admin Instructions. SPLIT DOSE PREP INSTRUCTED (Patient not taking: Reported on 05/30/2024) ??? solifenacin (VESICARE) 5 mg tablet Take 1 tablet (5 mg total) by mouth 1 (one) time each day. ??? terazosin (HYTRIN) 10 mg capsule Take 1 capsule (10 mg total) by mouth. (Patient not taking: Reported on 05/30/2024) Physical Exam ED Triage Vitals [06/23/24 1115] Temp Heart Rate Resp BP 36.4 ??C (97.5 ??F) 76 16 139/83 SpO2 Temp Source Heart Rate Source Patient Position 99 % Oral -- -- BP Location FiO2 (%) -- -- GENERAL: Well-Appearing, well-nourished patient. SKIN: Appropriate color for ethnicity, warm, dry. No rashes. HEENT: No stridor, no lymphadenopathy. NECK: Soft, supple, full ROM, Midline structures, nontender, no step-off, no deformity. CHEST: Heart regular rate and rhythm, no rubs, no gallops or murmurs. PULMONARY: Clear to auscultation bilaterally without any adventitious lung sounds. ABDOMINAL: Soft, nondistended nontender with positive bowel sounds. MUSCULOSKELETAL: Normal tone full range of motion, 5 x 5 motor. NEURO: A&Ox3, CN II-XII grossly intact, sensation grossly intact, EOMI, no facial droop, no aphasia, no slurred speech, no extremity drift. PERRL. Names objects appropriately, follows simple commands. Finger to nose testing intact. Left lateral visual field loss is noted on exam. PSYCHIATRIC: Normal affect, fluid speech, good eye contact and appropriate demeanor. Results Labs Reviewed BASIC METABOLIC PANEL - Abnormal Result Value Sodium 142 Potassium 3.7 Chloride 107 CO2 32 Anion Gap 3 Glucose 101 (*) BUN 11 Creatinine 0.97 eGFR 79 BUN/Creatinine Ratio 11.3 Calcium 10.0 MAGNESIUM - Normal Magnesium 2.2 TROPONIN I HIGH SENSITIVITY - Normal High Sensitivity Troponin I 7 Narrative: High levels of biotin in samples may falsely decrease hsTroponin values. Use caution when interpreting hsTroponin results in patients taking biotin who exhibit renal impairment (eGFR <60) or in patients taking more than 20 mg/day of biotin. CBC AND DIFFERENTIAL Narrative: The following orders were created for panel order CBC and differential. Procedure Abnormality Status --------- ------ CBC auto differential[[id number]] Final result Please view results for these tests on the individual orders. CBC WITH AUTO DIFFERENTIAL WBC 7.0 RBC 4.70 Hemoglobin 14.3 Hematocrit 44.1 MCV 93.4 MCH 30.3 MCHC 32.4 RDW 13.4 Platelets 250 MPV 11.0 NRBC 0.0 NRBC Absolute 0.00 Neutrophils Relative 56.9 Lymphocytes Relative 30.8 Monocytes Relative 8.3 Eosinophils Relative 2.4 Basophils Relative 1.3 Immature Granulocytes Relative 0.3 Neutrophils Absolute 3.99 Lymphocytes Absolute 2.16 Monocytes Absolute 0.58 Eosinophils Absolute 0.17 Basophils Absolute 0.09 Immature Granulocytes Absolute 0.02 TROPONIN I HIGH SENSITIVITY Abnormal Labs Reviewed BASIC METABOLIC PANEL - Abnormal; Notable for the following components: Result Value Glucose 101 (*) All other components within normal limits CT Head wo Contrast Final Result Remote right basal ganglia and right [employer]PER[employer]OR territory infarcts. Advanced chronic microvascular ischemic changes of the supratentorial white matter. No acute intracranial findings. -------- FINAL REPORT -------- Dictated By: Carlos Tapia Dictated Date: 06/23/2024 12:02 ET Assigned Physician: Carlos Tapia Reviewed and Electronically Signed By: Carlos Tapia Signed Date: 06/23/2024 12:06 ET Workstation ID: [id number] Transcribed By: Self Edit Transcribed Date: 06/23/2024 12:02 ET I have discussed the incidental/abnormal imaging and/or lab abnormalities with the patient and haveinstructed them the need for further evaluation and workup with their primary care doctor. I have provided the patient with a paper copy of the abnormality. The laboratory results, imaging results and other diagnostic exam results were reviewed in the EMR. EKG Interpretation Critical Care Time None Differential Diagnosis CVA/TIA Retinal artery occlusion Retinal vein occlusion Acute angle glaucoma Medical Decision Making Medications - No data to display ED Course as of 06/23/24 184SunJun 23, 2024 142 Patient was seen and evaluated, he is an 79-year-old male presenting with left-sided vision loss on exam left lateral visual field loss is noted. Otherwise neuroexam is nonfocal. This happened over 7 days ago. Out of the window for intervention. Not stroke alerted. Noncontrast CT of the head showed: Remote right basal ganglia and right [employer]PER[employer] territory infarcts. Lab workup largely unremarkable.At this time patient will require admission to medical service for stroke workup. [YB] ED Course User Index [YB] MOON Yepez Clinical Impressions as of 06/23/24 1845 Peripheral vision loss, left Procedures Procedures Diagnosis 1. Peripheral vision loss, left Disposition Admit to Inpatient ED Prescriptions None Physician Attestation MOON Yepez 06/23/24 1404 MOON Yepez 06/23/24 1444 Cosigned by Joseph Vora MD at 06/23/2024 3:47 PM EDT Associated attestation - Joseph Vora MD - 06/23/2024 3:47 PM EDT This is a split/shared visit with MOON Yepez. I personally performed the medical decision making (MDM) for the care of this patient on 06/23/24 as documented below 79-year-old male with history of hypertension presents for evaluation of vision changes and loss. Occurred 7 to 10 days ago with double vision and dizziness and then unable to see well from the left eye. Seen by ophthalmology today and recommended coming into the ED. CT scan shows no hemorrhage butdoes show remote evidence of CVA. No indication for TNK or other intervention given timeframe. Admitted to the medical service. Joseph Vora MD 06/23/24 3:46 PM EDT Joseph Vora MD documented in this encounter H&P Notes * MOON Garvin - 06/23/2024 3:37 PM EDT Images from the original note were not included. TONG HISTORY AND PHYSICAL Please contact author [MOON Rodriguez] via [employer]. Patient: Keon Shepherd Admission Date/Time: 06/23/2024 11:18 AM : 1945 [79 y.o.] Patient's PCP: Mart Mooney MD Attending Provider: Lena Reed MD CHIEF COMPLAINT: Left eye vision loss HPI: 79-year-old male with PMH of hypertension, BPH, AVM of the colon, spinal stenosis, and recent diagnosis of prostate cancer presents to the ED for left- sided visual change Patient is accompanied by family who is providing history. She states patient had double vision/blurred vision on June 12 Over the last 10 days patient has been bumping into things, reporting blurred vision and unsteady on his feet. 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 No discomfort with extraocular movement. Patient wears glasses at baseline At baseline, patient has been forgetful x 6 months, generalized weakness. No slurred speech, facialdroop, dysphagia, focal deficit. Patient follows with urology, recent diagnosis of prostate cancer and has a follow-up on Sunday06/27/2024 Patient has a history of hypertension, current smoker. No history of diabetes, atrial fibrillation,CVA/TIA Vitals: 139/83, pulse 76, 99% on room air, respiratory rate 16, afebrile Labs: WBC 7, hemoglobin 14.3, hematocrit 44.1, glucose 101, creatinine 0. 9 7, magnesium 2.2. Troponin 7. 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 Advanced chronic microvascular ischemic changes of the supratentorial white matter. No acute intracranial findings ROS Negative except noted in HPI ALLERGIES: No Known Allergies HOME MEDICATIONS: - Amlodipine 5 mg daily - Finasteride 5 mg daily - Solifenacin 10 mg daily PAST MEDICAL HISTORY: Hypertension BPH Hx of h. 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 EOM intact. PERRL. CARDIAC: RRR. No murmur, rubs, gallops. PULMONARY: Lungs clear bilaterally, normal respiratory rate. No wheeze/rales. GI: Soft, nontender, nondistended, normoactive bowel sounds x4. MSK: Moves all extremities, full ROM. No joint deformity. NEURO: Sensation and light touch intact bilaterally. No focal weakness. Pleasant, A&Ox3. SKIN: Appears clean dry and intact. No lesions, wounds, bruising or erythema. RESULTS/IMAGING: CT Head wo Contrast [[id number]] Collected: 06/23/24 1202 Order Status: Completed Updated: 06/23/24 1211 Narrative: PROCEDURE: Noncontrast head CT. HISTORY: Dizziness, non-specific. COMPARISON: 01/01/2022. TECHNIQUE: Noncontrast head CT with coronal and sagittal reformats. Dose length product: 717 mGy-cm. FINDINGS: BRAIN: No hemorrhage, edema, mass, or extra-axial fluid collection. No CT evidence of an acute large vessel infarct. Ventricles and sulci are age commensurate. Atherosclerotic calcifications of the carotid siphons. There is a stable small area of encephalomalacia in the high anterior right basal ganglia with associated ex vacuo dilatation of the anterior horn of the lateral ventricle. New area ofcortical encephalomalacia in the right parietal and occipital lobe. Confluent hypoattenuation in the supratentorial white matter suggestive of advanced chronic microvascular ischemic disease. ORBITS: Lens implants. SINUSES/MASTOIDS: Hypoplastic right frontal sinus. CALVARIUM: Normal. OTHER: The skull base soft tissues are normal. Impression: Remote right basal ganglia and right [employer]CH[employer] SUPERVISOR territory infarcts. Advanced chronic microvascular ischemic changes of the supratentorial white matter. No acute intracranial findings. -------- FINAL REPORT -------- Dictated By: Carlos Tapia Dictated Date: 06/23/2024 12:02 ET Assigned Physician: Carlos Tapia Reviewed and Electronically Signed By: Carlos Tapia Signed Date: 06/23/2024 12:06 ET Workstation ID: [id number] Transcribed By: Self Edit Transcribed Date: 06/23/2024 12:02 ET ASSESSMENT AND PLAN: CT Head WO Cont - Remote right basal ganglia and right [employer]CH[employer] SUPER[employer]OR territory infarcts. Advanced chronic microvascular ischemic changes of the supratentorial white matter. No acute intracranial findings Left eye vision loss - Brain MRI W/O ordered for AM - Q4h neuro checks - Aspirin 81 mg daily - Atorvastatin 40 mg daily - Monitor on telemetry - PT consult - Neurology consult - Fall and aspiration precautions - A1c + lipid profile with AM labs Hypertension - Amlodipine 5 mg daily BPH - Finasteride 5 mg daily - Solifenacin 10 mg daily Recent diagnosis of prostate cancer Follows w/ Urology Dr. Rafael Akins Follow up this coming Sunday06/28/24 FULL CODE HCP: Mehnaz, spouse [phone] PPX: Pneumoboots Case and plan discussed with: Dr. Reed Cosigned by Lena Reed MD at 06/24/2024 11:06 AM EDT Associated attestation - Lena Reed MD - 06/24/2024 11:06 AM EDT This is a split/shared visit with MOON Garvin. I personally performed the medical decision making (MDM) for the care of this patient on 06/23/24 asdocumented below Personally examined this patient and I have independently reviewed his medical records and interpreted his labs vital signs and radiology data. I discussed case with Kalyn Hamilton and I agree with physical exam assessment and plan as outlined in aKlyn's note. The patient is a 79-year-old male with history of hypertension as well as AVM of colon and prostatecancer who was sent in by outpatient physician for left-sided homonymous hemianopsia. His CT of thehead shows remote right basal ganglia and right posterior circulation territory infarcts. This could be responsible for his homonymous hemianopsia. I agree with MRI. If there is a suspicion for emboli c stroke patient will require echo possible transesophageal echo or Holter monitor to discover possible paroxysmal atrial fibrillation. He will also need addition of Plavix for secondary stroke prevention. In the meantime continue aspirin and atorvastatin along with neurochecks PT consult and lipid profile. Amlodipine daily for hypertension. Lena Reed MD 06/24/24 11:03 AM EDT documented in this encounter Consult Notes * Sruthi Khalil MD - 06/24/2024 12:07 PM EDTAssociated Order(s): IP CONSULT TO NEUROLOGY TeleNeurology Consult Reason for consult: stroke History obtained from: Patient and EMR/Housestaff Referring physician: Lee Ureña* History of Present Illness: Keon Shepherd is a 79 y.o. male with PMH of hypertension, BPH, AVM of the colon, spinal stenosis, and recent diagnosis of prostate cancer presented for left-sided visual changes. She states patient had double vision/blurred vision on June 12. Over the last 10 days patient has been bumping into things, reporting blurred vision and unsteady on his feet. 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 Patient had left-sided peripheral vision loss on exam. Today the patient reports that he feels better. 2 weeks ago he had problem with his vision that progressed since. Home AP tx: none Prior neurological history: negative stroke H/o febrile seizures during childhood Neurologic Review of Systems - Denied numbness, tingling, headache, focal weakness, diplopia History of head/neck surgery? no Ambulation: Independent Substance use: denies Bowel/ bladder control : Full control Smoking: former smoker Alcohol: socially ROS: All 14 systems were reviewed and were negative except what is mentioned above in the HPI. Past medical, surgical, social and family histories were reviewed and noted in EMR Current medications were reviewed and noted in EMR PAST MEDICAL HISTORY Past Medical History: Diagnosis Date Essential hypertension DX:Essential hypertension HOME MEDICATIONS Medications Prior to Admission Medication Sig Dispense Refill Last Dose/Taking amLODIPine (NORVASC) 5 mg tablet TAKE 1 TABLET BY MOUTH EVERY DAY 90 tablet 1 06/23/2024 finasteride (PROSCAR) 5 mg tablet Take 1 tablet (5 mg total) by mouth 1 (one) time each day. Unknown sodium,potassium,mag sulfates (SUPREP) 17.5-3.13-1.6 gram recon soln bowel prep kit oral solution Take 2 Bottles by mouth See Admin Instructions. SPLIT DOSE PREP INSTRUCTED (Patient not taking: Reported on 05/30/2024) Unknown solifenacin (VESICARE) 5 mg tablet Take 1 tablet (5 mg total) by mouth 1 (one) time each day. Unknown terazosin (HYTRIN) 10 mg capsule Take 1 capsule (10 mg total) by mouth. Unknown MEDICATIONS Scheduled Meds:aspirin, 81 mg, oral, Daily atorvastatin, 40 mg, oral, Nightly finasteride, 5 mg, oral, Daily oxyBUTYnin, 5 mg, oral, BID Continuous Infusions: PRN Meds:PRN medications: acetaminophen, bisacodyL, ondansetron (ZOFRAN-ODT) disintegrating tablet OR ondansetron ALLERGIES No Known Allergies FAMILY HISTORY Family History Problem Relation Name Age of Onset Liver cancer Father SOCIAL HISTORY Social History Socioeconomic History Marital status: Spouse name: Not on file Number of children: Not on file Years of education: Not on file Highest education level: Not on file Occupational History Not on file Tobacco Use Smoking status: Every Day Smokeless tobacco: Never Substance and Sexual Activity Alcohol use: Yes Drug use: Never Sexual activity: Not on file Other Topics Concern Not on file Social History Narrative Not on file NEUROLOGICAL EXAMINATION Vital Sign: Visit Vitals BP (!) 153/76 (BP Location: Left arm, Patient Position: Lying) Pulse 67 Temp 36.6 ??C (97.9 ??F) (Temporal) Resp 16 Ht 1.702 m (67.01 ) Wt 54.9 kg (121 lb) SpO2 96% BMI 18.95 kg/m?? Smoking Status Every Day BSA 1.63 m?? NIH Stroke Scale TIME: 1a Level of consciousness: 0 1b. LOC questions: 0 1c. LOC commands: 0 2. Best Gaze: 0 3. Visual: 2 4. Facial Palsy: 0 5a. Motor left arm: 0 5b. Motor right arm: 0 6a. motor left le 6b Motor right le 7. Limb Ataxia: 0 8. Sensory: 1 9. Best Language: 0 10. Dysarthria: 0 11. Extinction and Inattention: 0 Total: 3 The exam was done with the assistance of the MAKATELYNN, for Tele communication purpose. General exam: Well developed, well dressed and in no acute distress. Symmetric chest rise, normal respiratory effort and rhythm. No audible wheezing heard. Mental status: Alert and oriented to person, place and time. Patient is speaking in full sentences.Affect/mood appropriate. Cranial Nerves: Visual Acuity: Good BL, able to read Severe left homonymous hemianopia Extraocular movements intact. Face is symmetric at rest. Sensation is less in the left face Tongue is midline with normal tongue protrusion and lateral movements. 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 Coordination and Gait: Finger to nose testing intact bilaterally with no dysmetria. Deferred gait LABS: [facility] (last 7 days): ABG Anemia Results from last 7 days Lab Units 06/24/24 0646 WBC AUTO K/mcL 7.9 HEMOGLOBIN g/dL 13.0* HEMATOCRIT % 39.6* PLATELETS K/mcL 225 Hematology Results from last 7 days Lab Units 06/24/24 0646 WBC AUTO K/mcL 7.9 HEMOGLOBIN g/dL 13.0* HEMATOCRIT % 39.6* PLATELETS K/mcL 225 LYMPHS PCT AUTO % 36.8 MONO PCT AUTO % 8.3 EOS PCT AUTO % 3.4 Chemistry Results from last 7 days Lab Units 06/24/24 0646 SODIUM mmol/L 141 POTASSIUM mmol/L 3.8 CHLORIDE mmol/L 108 CO2 mmol/L 29 BUN mg/dL 13 CREATININE mg/dL 0.88 GLUCOSE mg/dL 97 CALCIUM mg/dL 9.1 No lab exists for component: LABALBU Results from last 7 days Lab Units 06/23/24 1130 CRP mg/dL <0.29 Cardiac 0 Lab Value Date/Time HSTROPI 8 06/23/2024 1840 HSTROPI 7 06/23/2024 1130 Coagulation No results found for: PTT Thyroid Function / HGBA1C Lab Results Component Value Date HGBA1C 5.6 06/23/2024 Results from last 7 days Lab Units 06/24/24 0646 CHOLESTEROL mg/dL 176 TRIGLYCERIDES mg/dL 141 HDL mg/dL 52 Urine No results found for: COLORUA , CLARITYUA , SPECGRAVUA , PHUA , PROTUA , GLUCOSEUA , KETONESUA , BILIRUBINUA , BLOODUA , UROBILINOGUA , NITRITEUA Micro No results found for: BLOODCX , CLOSTD , GRAMSTAIN , URINECX Assessment: I independently reviewed results of CT/ MRI HEAD and discussed the results with the patient. MRI on my read is showing abnormal diffusion. Severe bihemispheric white matter lesions likely due to small vessel ischemic disease. The gradient refocused acquisition is normal. Chronic right basal ganglia stroke CT head on my read is showing no intracranial hemorrhage, No hyperdense vessel sign identified, diminished attenuation is again seen in the right occipital lobe CTA head and neck reported as no evidence of major vessel stenosis or occlusion. BL carotid atherosclerosis EKG reported as NSR Labs: LDL 96,A1C 5.6 Acute to subacute right [employer] MECH[employer]IC SUPERVISOR ischemic stroke - Severe left homonymous hemianopia Suspected Etiology: atherosclerosis, embolic BL ICA atherosclerosis Chronic right BG stroke Plan: The following are the recommendations: ASA 81mg qday Atorvastatin 40mg qday, goal LDL <70 Echo-TTE Normotensive BP Holter as an outpatient to r/o AFIB No driving due to severe visual field deficit Low cholesterol diet Follow up with Neurology in 4 weeks Recommendations were discussed with current provider: Lee Ureña* Thank you for allowing us to participate in the care of this pleasant patient and please do not hesitate to contact us should questions or concerns arise. Sincerely, Dr. Khalil Neurology attending Department of Neurology The patient and/or family consented to consult based on capacity assessment specifically for use inpatients with acute stroke symptoms. The hosting facility is responsible to follow standard procedure to explained to the patient and/or family the remote visit will be submitted to their insurance and that they are responsible for any copay or deductible charges. Risk and benefits were explained to the patient and/or family by requesting provider and indicated his/her understanding of the details and a willingness to undergo treatment, receiving assessment, diagnosis, management, and/or remote consultative support while exhibiting signs and symptoms consistent with acute strokesyndrome, using HIPAA compliant telemedicine communication technologies. Total time: 75 min Other individuals taking part in remote visit: SHYANNE The text in the report has been created with a speech recognition text to software program. Effortshave been made to eliminate errors in this report, however, if there are some errors that remain, please take them in the context in which they are written. documented in this encounter Plan of Treatment Upcoming Encounters Date Type Department Care Team (Late st Contact Info) Description 07/01/2024 10:00 AM EDT Office Visit Neurology [address] [place] [id number] Jimi Ashton MD [address] [place] [address] 12/04/2024 11:00 AM EDT Office Visit Internal Medicine - [place] [address] [place] [phone] Austen Cevallos MD [address] [place] [address] documented as of this encounter Procedures Procedure Name Priority Date/Time Associated Diagnosis Comments TRANSTHORACIC ECHOCARDIOGRAM (TTE) COMPLETE Routine 06/24/2024 3:04 PM EDT Cerebrovascular accident (CVA) due to occlusion of right posterior cerebral artery (CMS/HCC V24, CMS/HCC V28) CT ANGIO HEAD/NECK WO AND/OR W CONTRAST STAT 06/24/2024 10:13 AM EDT LIPID PANEL WITH REFLEX TO DIRECT LDL Routine 06/24/2024 6:46 AM EDT CBC WITH AUTO DIFFERENTIAL Routine 06/24/2024 6:46 AM EDT CBC AND DIFFERENTIAL Routine 06/24/2024 6:46 AM EDT MAGNESIUM Routine 06/24/2024 6:46 AM EDT BASIC METABOLIC PANEL Routine 06/24/2024 6:46 AM EDT TROPONIN I HIGH SENSITIVITY STAT 06/23/2024 6:40 PM EDT MR BRAIN WO CONTRAST Routine 06/23/2024 6:[address] HEAD WO CONTRAST STAT 06/23/2024 1 1:52 AM EDT TROPONIN I HIGH SENSITIVITY STAT 06/23/2024 11:30 AM EDT CBC WITH AUTO DIFFERENTIAL STAT 06/23/2024 11:30 AM EDT CBC AND DIFFERENTIAL STAT 06/23/2024 11:30 AM EDT C-REACTIVE PROTEIN Add-On 06/23/2024 11 :30 AM EDT MAGNESIUM STAT 06/23/2024 11:30 AM EDT HEMOGLOBIN A1C Add-On 06/23/2024 11:30 AM EDT BASIC METABOLIC PANEL STAT 06/23/2024 11:30 AM EDT ECG 12-LEAD STAT 06/23/2024 11:28 AM EDT documented in this encounter Results * (ABNORMAL) TRANSTHORACIC ECHOCARDIOGRAM (TTE) COMPLETE (06/24/2024 3:04 PM EDT) Left [facility] 4.6 cm CV PACS LA Area Sys [...] dissection, or hemodynamically significant cervical carotid stenosis. Micaela MUSTAFA ([id number]) -------- FINAL REPORT -------- Dictated By: Mary Butler Dictated Date: 06/24/2024 10:39 ET Assigned Physician: Mary Butler Reviewed and Electronically Signed By: Mary Butler Signed Date: 06/24/2024 10:57 ET Workstation ID: [id number] Transcribed By: Self Edit Transcribed Date: 06/24/2024 [...] brain was also performed. DLP: 2613.28 mGy/cm Iencuentra Iterative reconstruction technique FINDINGS: Noncontrast brain CT: [...] in the bilateral superior cerebellar arteries. The laborer yard are patent, supplied by the internal carotid [...] the brain wasalso performed. DLP: 2613.28 mGy/cm Iencuentra Iterative reconstruction technique FINDINGS: Noncontrast brain CT: [...] terminates inthe bilateral superior cerebellar arteries. The laborer yard are patent, suppliedby the internal carotid arteries [...] aneurysm, dissection, or hemodynamicallysignificant cervical carotid stenosis. Micaela MUSTAFA ([id number]) -------- FINAL REPORT -------- Dictated By: Mary Butler Dictated Date: 06/24/2024 10:39 ET Assigned Physician: Mary Butler Reviewed and Electronically Signed By: Mary Butler Signed Date: 06/24/2024 10:57 ET Workstation ID: [id number] Transcribed By: Self Edit Transcribed Date: 06/24/2024 10:39 ET Lee Norris MD IMG CT PROCEDURES F inal Result * (ABNORMAL) CBC auto differential (06/24/2024 6:46 AM EDT) Pathologist [facility] WBC 7.9 4.8 - 10.8 K/mcL LAB HEMETOLOGY METHOD 06/24/2024 7:20 AM EDT [facility] RBC 4.30(L) 4.50 - 5.50 M/mcL LAB HEMETOLOGY METHOD 06/24/2024 7:20 AM [facility] Hemoglobin 13.0(L) 13.5 - 17.5 g/dL LAB HEMETOLOGY METHOD 06/24/2024 7:20 AM [facility] Hematocrit 39.6(L) 42.0 - 54.0 % LAB HEMETOLOGY METHOD 06/24/2024 7:20 AM [facility] MCV 92.1 79.0 - 98.0 FL LAB HEMETOLOGY METHOD 06/24/2024 7:20 AM [facility] MCH 30.2 27.0 - 32.0 pcg LAB HEMETOLOGY METHOD 06/24/2024 7:20 AM [facility] MCHC 32.8 32.0 - 37.0 g/dL LAB HEMETOLOGY METHOD 06/24/2024 7:20 AM [facility] RDW 13.4 11.0 - 15.0 % LAB HEMETOLOGY METHOD 06/24/2024 7:20 AM [facility] Platelets 225 130 - 400 K/mcL LAB HEMETOLOGY METHOD 06/24/2024 7:20 AM [facility] MPV 10.6 7.0 - 11.0 FL LAB HEMETOLOGY METHOD 06/24/2024 7:20 AM [facility] NRBC 0.0 <1.0 % LAB HEMETOLOGY METHOD 06/24/2024 7:20 AM [facility] NRBC Absolute 0.00 <0.10 K/mcL LAB HEMETOLOGY METHOD 06/24/2024 7:20 AM [facility] Neutrophils Relative 49.9 % LAB HEMETOLOGY METHOD 06/24/2024 7:20 AM [facility] Lymphocytes Relative 36.8 % LAB HEMETOLOGY METHOD 06/24/2024 7:20 AM [facility] Monocytes Relative 8.3 % LAB HEMETOLOGY METHOD 06/24/2024 7:20 AM [facility] Eosinophils Relative 3.4 % LAB HEMETOLOGY METHOD 06/24/2024 7:20 AM [facility] Basophils Relative 1.3 % LAB HEMETOLOGY METHOD 06/24/2024 7:20 AM [facility] Immature Granulocytes Relative 0.3 % LAB HEMETOLOGY METHOD 06/24/2024 7:20 AM [facility] Neutrophils Absolute 3.92 1.50 - 7.00 K/mcL LAB HEMETOLOGY METHOD 06/24/2024 7:20 AM [facility] Lymphocytes Absolute 2.89 1.00 - 5.00 K/mcL LAB HEMETOLOGY METHOD 06/24/2024 7:20 AM [facility] Monocytes Absolute 0.65 0.20 - 1.00 K/mcL LAB HEMETOLOGY METHOD 06/24/2024 7:20 AM [facility] Eosinophils Absolute 0.27 0.00 - 0.50 K/mcL LAB HEMETOLOGY METHOD 06/24/2024 7:20 AM [facility] Basophils Absolute 0.10 0.00 - 0.20 K/mcL LAB HEMETOLOGY METHOD 06/24/2024 7:20 AM EDT [facility] Immature Granulocytes Absolute 0.02 0.00 - 0.03 K/[facility] LAB HEMETOLOGY METHOD 06/24/2024 7:20 AM [facility] Blood Venous blood specimen / Unknown Venipuncture / Unknown 06/24/2024 6:46 AM EDT 06/24/2024 7:05 AM EDT us Kalyn MUSTAFA LAB BLOOD ORDERABLES Fi nal Result [facility] [address] [place] [address], [place] [phone] * Lipid panel with reflex to direct LDL (06/24/2024 6:46 AM EDT) Cholesterol 176 0 - 200 mg/dL LAB CHEMISTRY METHOD 06/24/2024 7:46 AM [facility] Triglycerides 141 0 - 150 mg/dL LAB CHEMISTRY METHOD 06/24/2024 7:46 AM [facility] HDL 52 >=40 mg/dL LAB CHEMISTRY METHOD 06/24/2024 7:46 AM [facility] LDL Calculated 96 0 - 100 mg/dL LAB CHEMISTRY METHOD 06/24/2024 7:46 AM [facility] VLDL Cholesterol Олег 28.2 mg/dL LAB CHEMISTRY METHOD 06/24/2024 7:46 AM [facility] Non HDL Chol. (LDL+VLDL) 124 <145 mg/dL LAB CHEMISTRY METHOD 06/24/2024 7:46 AM [facility] Chol/HDL Ratio 3.4 0.0 - 4.4 LAB CHEMISTRY METHOD 06/24/2024 7:46 AM [facility] Blood Venous blood specimen / Unknown Venipuncture / Unknown 06/24/2024 6:46 AM EDT 06/24/2024 7:05 AM EDT Kalyn MUSTAFA LAB BLOOD ORDERABLES Fi nal Result Performing Organization Address [facility]/ZIP Co de Phone Number [facility] [address] [place] [address], [place] [phone] * Magnesium (06/24/2024 6:46 AM EDT) Pathologist [facility] Magnesium 2.2 1.9 - 2.6 mg/dL LAB CHEMISTRY METHOD 06/24/2024 7:46 AM EDT [facility] Blood Venous blood specimen / Unknown Venipuncture / Unknown 06/24/2024 6:46 AM EDT 06/24/2024 7:05 AM EDT Kalyn MUSTAFA LAB BLOOD ORDERABLES Fi nal Result Performing Organization Address [facility]/ZIP Co de Phone Number [facility] [address] [place] [address], * Basic metabolic panel (06/24/2024 6:46 AM EDT) [facility] Sodium 141 133 - 145 mmol/L LAB CHEMISTRY METHOD 06/24/2024 7:46 AM EDT [facility] Potassium 3.8 3.5 - 5.5 mmol/L LAB CHEMISTRY METHOD 06/24/2024 7:46 AM EDT [facility] Chloride 108 96 - 110 mmol/L LAB CHEMISTRY METHOD 06/24/2024 7:46 AM EDT [facility] CO2 29 21 - 32 mmol/L LAB CHEMISTRY METHOD 06/24/2024 7:46 AM EDT [facility] Anion Gap 4 3 - 11 LAB CHEMISTRY METHOD 06/24/2024 7:46 AM EDT [facility] Glucose 97 70 - 100 mg/dL LAB CHEMISTRY METHOD 06/24/2024 7:46 AM EDT [facility] BUN 13 5 - 25 mg/dL LAB CHEMISTRY METHOD 06/24/2024 7:46 AM EDT [facility] Creatinine 0.88 0.70 - 1.30 mg/dL LAB CHEMISTRY METHOD 06/24/2024 7:46 AM EDT [facility] eGFR 87 >=60 mL/min/1. 73m2 LAB CHEMISTRY METHOD 06/24/2024 7:46 AM EDT [facility] Comment:Calculation based on the??Chronic Kidney Disease Epidemiology Collaboration (CKD-EPI) equation refit??without adjustment for race. BUN/Creatinine Ratio 14.8 LAB CHEMISTRY METHOD 06/24/2024 7:46 AM EDT [facility] Calcium 9.1 8.5 - 10.5 mg/dL LAB CHEMISTRY METHOD 06/24/2024 7:46 AM EDT [facility] Blood Venous blood specimen / Unknown Venipuncture / Unknown 06/24/2024 6:46 AM EDT 06/24/2024 7:05 AM EDT us Lena Reed MD LAB BLOOD ORDERABLES Final Res ult [facility] [address] [place] [address], * Troponin I high sensitivity (06/23/2024 6:40 PM EDT) High Sensitivity Troponin I 8 <=79 ng/L LAB CHEMISTRY METHOD 06/23/2024 7:18 PM EDT [facility] Blood Venous blood specimen / Unknown Venipuncture / Unknown 06/23/2024 6:40 PM EDT 06/23/2024 6:48 PM EDT Narrative [facility] - 06/23/2024 7:18 PM EDT High levels of biotin in samples may falsely decrease hsTroponin values. ??Use caution when interpreting hsTroponin results in patients taking biotin who exhibit renal impairment (eGFR <60) or in patients taking more than 20 mg/day of biotin. 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 ??Advanced chronic microvascular ischemic changes of the supratentorial white matter. ??No acute intracranial findings. -------- FINAL REPORT -------- Dictated By: Carlos Tapia Dictated Date: 06/23/2024 12:02 ET Assigned Physician: Carlos Tapia Reviewed and Electronically Signed By: Carlos Tapia Signed Date: 06/23/2024 12:06 ET Workstation ID: [id number] Transcribed By: Self Edit Transcribed Date: 06/23/2024 [...] IMPRESSION: Remote right basal ganglia and right [employer] ME[employer] SUPER[employer] territory infarcts. Advancedchronic microvascular ischemic changes of the supratentorial white matter.No acute intracranial findings. -------- FINAL REPORT -------- Dictated By: Carlos Tapia Dictated Date: 06/23/2024 12:02 ET Assigned Physician: Carlos Tapia Reviewed and Electronically Signed By: Carlos Tapia Signed Date: 06/23/2024 12:06 ET Workstation ID: [id number] Transcribed By: Self Edit Transcribed Date: 06/23/2024 12:02 ET Lena Reed MD IMG CT PROCEDURES Final Result * C-reactive protein (06/23/2024 11:30 AM EDT) [facility] C-Reactive Protein <0.29 <=0.50 mg/dL LAB CHEMISTRY METHOD 06/23/2024 4:42 PM EDT [facility] Blood Venous blood specimen / Unknown Venipuncture / Unknown 06/23/2024 11:30 AM EDT 06/23/2024 12:05 PM EDT Kalyn MUSTAFA LAB BLOOD ORDERABLES Fi nal Result Performing Organization Address [facility]/ZIP Co de Phone Number [facility] [address] [place] [address], [place] [phone] * Hemoglobin A1c (06/23/2024 11:30 AM EDT) [facility] Hemoglobin A1C 5.6 <6.5 % LAB CHEMISTRY METHOD 06/23/2024 10:11 PM EDT [facility] Mean Bld Glu Estim. 114 mg/dL LAB CHEMISTRY METHOD 06/23/2024 10:11 PM EDT [facility] Blood Venous blood specimen / Unknown Venipuncture / Unknown 06/23/2024 11:30 AM EDT 06/23/2024 12:04 PM EDT Kalyn MUSTAFA LAB BLOOD ORDERABLES Fi nal Result Performing Organization Address City/[facility]/ZIP Co de Phone Number [facility] [address] [place] [address], [place] [phone] * CBC auto differential (06/23/2024 11:30 AM EDT) [facility] WBC 7.0 4.8 - 10.8 K/mcL LAB HEMETOLOGY METHOD 06/23/2024 12:14 PM [facility] RBC 4.70 4.50 - 5.50 M/mcL LAB HEMETOLOGY METHOD 06/23/2024 12:14 PM [facility] Hemoglobin 14.3 13.5 - 17.5 g/dL LAB HEMETOLOGY METHOD 06/23/2024 12:14 PM [facility] Hematocrit 44.1 42.0 - 54.0 % LAB HEMETOLOGY METHOD 06/23/2024 12:14 PM [facility] MCV 93.4 79.0 - 98.0 FL LAB HEMETOLOGY METHOD 06/23/2024 12:14 PM [facility] MCH 30.3 27.0 - 32.0 pcg LAB HEMETOLOGY METHOD 06/23/2024 12:14 PM [facility] MCHC 32.4 32.0 - 37.0 g/dL LAB HEMETOLOGY METHOD 06/23/2024 12:14 PM [facility] RDW 13.4 11.0 - 15.0 % LAB HEMETOLOGY METHOD 06/23/2024 12:14 PM [facility] Platelets 250 130 - 400 K/mcL LAB HEMETOLOGY METHOD 06/23/2024 12:14 PM [facility] MPV 11.0 7.0 - 11.0 FL LAB HEMETOLOGY METHOD 06/23/2024 12:14 PM [facility] NRBC 0.0 <1.0 % LAB HEMETOLOGY METHOD 06/23/2024 12:14 PM [facility] NRBC Absolute 0.00 <0.10 K/mcL LAB HEMETOLOGY METHOD 06/23/2024 12:14 PM [facility] Neutrophils Relative 56.9 % LAB HEMETOLOGY METHOD 06/23/2024 12:14 PM [facility] Lymphocytes Relative 30.8 % LAB HEMETOLOGY METHOD 06/23/2024 12:14 PM [facility] Monocytes Relative 8.3 % LAB HEMETOLOGY METHOD 06/23/2024 12:14 PM [facility] Eosinophils Relative 2.4 % LAB HEMETOLOGY METHOD 06/23/2024 12:14 PM [facility] Basophils Relative 1.3 % LAB HEMETOLOGY METHOD 06/23/2024 12:14 PM [facility] Immature Granulocytes Relative 0.3 % LAB HEMETOLOGY METHOD 06/23/2024 12:14 PM [facility] Neutrophils Absolute 3.99 1.50 - 7.00 K/mcL LAB HEMETOLOGY METHOD 06/23/2024 12:14 PM [facility] Lymphocytes Absolute 2.16 1.00 - 5.00 K/mcL LAB HEMETOLOGY METHOD 06/23/2024 12:14 PM [facility] Monocytes Absolute 0.58 0.20 - 1.00 K/mcL LAB HEMETOLOGY METHOD 06/23/2024 12:14 PM [facility] Eosinophils Absolute 0.17 0.00 - 0.50 K/mcL LAB HEMETOLOGY METHOD 06/23/2024 12:14 PM [facility] Basophils Absolute 0.09 0.00 - 0.20 K/mcL LAB HEMETOLOGY METHOD 06/23/2024 12:14 PM [facility] Immature Granulocytes Absolute 0.02 0.00 - 0.03 K/mcL LAB HEMETOLOGY METHOD 06/23/2024 12:14 PM [facility] Blood Venous blood specimen / Unknown Venipuncture / Unknown 06/23/2024 11:30 AM EDT 06/23/2024 12:04 PM EDT us Joseph Vora MD LAB BLOOD ORDERABLES Kelly l Result Performing Organization Address [facility] Co de Phone Number [facility] [address] [place] [address], [place] [phone] * Troponin I high sensitivity (06/23/2024 11:30 AM EDT) [facility] High Sensitivity Troponin I 7 <=79 ng/L LAB CHEMISTRY METHOD 06/23/2024 12:38 PM EDT [facility] Blood Venous blood specimen / Unknown Venipuncture / Unknown 06/23/2024 11:30 AM EDT 06/23/2024 12:05 PM EDT Narrative [facility] - 06/23/2024 12:38 PM EDT High levels of biotin in samples may falsely decrease hsTroponin values. ??Use caution when interpreting hsTroponin results in patients taking biotin who exhibit renal impairment (eGFR <60) or in patients taking more than 20 mg/day of biotin. us Joseph Vora MD LAB BLOOD ORDERABLES Kelly l Result Performing Organization Address [facility] Co de Phone Number [facility] [address] [place] [address], [place] [phone] * Magnesium (06/23/2024 11:30 AM EDT) [facility] Magnesium 2.2 1.9 - 2.6 mg/dL LAB CHEMISTRY METHOD 06/23/2024 12:27 PM EDT [facility] Blood Venous blood specimen / Unknown Venipuncture / Unknown 06/23/2024 11:30 AM EDT 06/23/2024 12:05 PM EDT us Joseph Vora MD LAB BLOOD ORDERABLES Kelly l Result [facility] [address] [place] [address], * (ABNORMAL) Basic metabolic panel (06/23/2024 11:30 AM EDT) Sodium 142 133 - 145 mmol/L LAB CHEMISTRY METHOD 06/23/2024 12:40 PM EDT [facility] Potassium 3.7 3.5 - 5.5 mmol/L LAB CHEMISTRY METHOD 06/23/2024 12:40 PM [facility] Chloride 107 96 - 110 mmol/L LAB CHEMISTRY METHOD 06/23/2024 12:40 PM [facility] CO2 32 21 - 32 mmol/L LAB CHEMISTRY METHOD 06/23/2024 12:40 PM [facility] Anion Gap 3 3 - 11 LAB CHEMISTRY METHOD 06/23/2024 12:40 PM [facility] Glucose 101(H) 70 - 100 mg/dL LAB CHEMISTRY METHOD 06/23/2024 12:40 PM [facility] BUN 11 5 - 25 mg/dL LAB CHEMISTRY METHOD 06/23/2024 12:40 PM [facility] Creatinine 0.97 0.70 - 1.30 mg/dL LAB CHEMISTRY METHOD 06/23/2024 12:40 PM [facility] eGFR 79 >=60 mL/min/1. 73m2 LAB CHEMISTRY METHOD 06/23/2024 12:40 PM [facility] Comment:Calculation based on the??Chronic Kidney Disease Epidemiology Collaboration (CKD-EPI) equation refit??without adjustment for race. BUN/Creatinine Ratio 11.3 LAB CHEMISTRY METHOD 06/23/2024 12:40 PM [facility] Calcium 10.0 8.5 - 10.5 mg/dL LAB CHEMISTRY METHOD 06/23/2024 12:40 PM [facility] Blood Venous blood specimen / Unknown Venipuncture / Unknown 06/23/2024 11:30 AM EDT 06/23/2024 12:05 PM EDT Joseph Vora MD LAB BLOOD ORDERABLES Kelly l [facility] [address] [place] [address], [place] [phone] * ECG 12 lead (06/23/2024 11:28 AM EDT) [facility] Ventricular Rate ECG 76 BPM GEMUSE Atrial Rate 76 BPM GEMUSE P-R Interval 158 ms GEMUSE QRS Duration 80 ms GEMUSE Q-T Interval 384 ms GEMUSE QTc 432 ms GEMUSE P Wave Veyo 54 degrees GEMUSE R Veyo -6 degrees GEMUSE T Veyo 20 degrees GEMUSE ECG Interpretation Normal sinus rhythm Cannot exclude Inferior infarct , age undetermined Abnormal ECG No previous ECGs available Confirmed by Alex TITUS YUFENG ([id number]) on 06/23/2024 5:24:57 PM GEMUSE 06/23/2024 11:2 8 AM EDT 06/23/2024 5:24 PM EDT Joseph Vora MD ECG ORDERABLES Final Res ult Performing Organization Address [facility] Co de Phone Number GEMUSE documented in this encounter Visit Diagnoses Diagnosis CVA (cerebral vascular accident) ([facility] V24, [facility] V28)- Primary Unspecified cerebral artery occlusion with cerebral infarction Peripheral vision loss, left Cerebrovascular accident (CVA) due to occlusion of right posterior cerebral artery (CMS/HCC V24, [facility] V28) documented in this encounter Admitting Diagnoses Diagnosis CVA (cerebral vascular accident) (CMS/HCC V24, [facility] V28) Unspecified cerebral artery occlusion with cerebral infarction documented in this encounter Administered Medications Inactive Administered Medications - up to 3 most recent administrations Medication Order MAR Action Action Date Dose Rate Site acetaminophen (TYLENOL) tablet 650 mg 650 mg, oral, Every 6 hours PRN, mild pain, Starting on 06/23/24 at 1552 amLODIPine (NORVASC) tablet 5 mg 5 mg, oral, Daily, First dose on Sun06/23/24 at 1829 Given 06/23/2024 7:11 PM EDT 5 mg aspirin EC tablet 325 mg 325 mg, oral, Once, On Sun06/23/24 at 2145, For 1 dose, Do not crush, chew, or split. Given 06/23/2024 9:35 PM EDT 325 mg aspirin EC tablet 81 mg 81 mg, oral, Daily, First dose on Sun06/24/24 at 0900, Do not crush, chew, or split. Given 06/24/2024 8:50 AM EDT 81 mg atorvastatin (LIPITOR) tablet 40 mg 40 mg, oral, Nightly, First dose on Sun06/23/24 at 2100 Given 06/23/2024 8:32 PM EDT 40 mg bisacodyL (DULCOLAX) EC tablet 10 mg 10 mg, oral, Daily PRN, constipation, Starting on Sun06/23/24 at 1552, 1st line for treatment of constipation - give scheduled if no bowel movement in past 24 hours. Do not crush, chew, or split. finasteride (PROSCAR) tablet 5 mg 5 mg, oral, Daily, First dose on Sun06/23/24 at 1829, HAZARDOUS Drug Precautions - Low Risk (Category A/NIOSH Group 3) Reproductive Risk Only: - Do NOT split, crush, or open dosage units - Single pair of ASTM standard D6978 certified chemotherapy gloves - Eye protection (goggles or face shield) required only with a potential for facial contact (i.e. concern for spitting or vomiting of the dose during or after administration) Given 06/24/2024 8:50 AM EDT 5 mg Given 06/23/2024 7:09 PM EDT 5 mg iopamidoL (ISOVUE-370) 370 mg iodine /mL (76 %) injection 90 mL 90 mL, intravenous, Once in imaging, Starting on Sun06/24/24 at 1008, For 1 dose Given 06/24/2024 10:08 AM EDT 90 mL ondansetron (PF) (ZOFRAN) injection 4 mg 4 mg, intravenous, Every 8 hours PRN, vomiting, nausea, Starting on Sun06/23/24 at 1552, -ONLY give IV if patient is unable to take orally. -If inadequate response within 30 minutes, proceed to next-line agent or contact provider if no further options ordered. ondansetron ODT (ZOFRAN-ODT) disintegrating tablet 4 mg 4 mg, oral, Every 8 hours PRN, vomiting, nausea, Starting on Sun06/23/24 at 1552, -Give IV if patient is unable to take orally. -If inadequate response within 30 minutes, proceed to next-line agent or contact provider if no further options ordered. For ODT tablets: -Do not remove from blister pack until just before administering. -Patient should allow tablet to dissolve on tongue. oxyBUTYnin (DITROPAN) tablet 5 mg 5 mg, oral, 2 times daily, First dose on Sun06/23/24 at 2100 Given 06/24/2024 8:50 AM EDT 5 mg perflutren lipid microsphere (DEFINITY) 1.3 mL in sodium chloride 0.9% 8.7 mL injection 10 mL, intravenous, Administer over 10 Minutes, Once in imaging, Starting on Sun06/24/24 at 1504, For 1 dose, CV Medication Orders sodium chloride 0.9 % flush 10 mL 10 mL, intravenous, Once, On Sun06/24/24 at 1030, For 1 dose Given 06/24/2024 10:08 AM EDT 10 mL documented in this encounter Discontinued Medications Medication Sig Discontinue Reason Start Date End Da te ascorbic acid (VITAMIN C) 250 MG chewable tablet Chew 1 tablet (250 mg total) 1 (one) time each day. 07/31/2023 06/23/2024 cholecalciferol (VITAMIN D-3) 25 mcg (1,000 unit) tablet Take by mouth. 06/23/2024 omeprazole (PriLOSEC) [address] capsule Take 1 capsule (20 mg total) by mouth. 10/10/2023 06/23/2024 MULTIVITAMIN ORAL Take 1 capsule by mouth. 06/23/2024 multivitamin (MULTIPLE VITAMINS ORAL) Take by mouth. 06/23/2024 sodium,potassium,mag sulfates (SUPREP) 17.5-3.13-1.6 gram recon soln bowel prep kit oral solution Take 2 Bottles by mouth See Admin Instructions. SPLIT DOSE PREP INSTRUCTED Stop Taking at Discharge 01/12/2023 06/24/2024 documented as of this encounter Active and Recently Administered Medications Times are shown in EDT. Scheduled Medication Order 06/22/2024 06/23/2024 06/24/2024 amLODIPine (NORVASC) tablet 5 mg (CANCELED) 5 mg, oral, Daily, First dose on Sun06/23/24 at 1829 1911 (Given - Provider: Keith Zuñiga, RN) aspirin EC tablet 325 mg (COMPLETED) 325 mg, oral, Once, On Sun06/23/24 at 2145, For 1 dose, Do not crush, chew, or split. 2134 (Given - Provider: Tea Copeland, BETTY) aspirin EC tablet 81 mg 81 mg, oral, Daily, First dose on Sun06/24/24 at 0900, Do not crush, chew, or split. 0850 (Given - Provid er: Georgie Guardado RN) atorvastatin (LIPITOR) tablet 40 mg 40 mg, oral, Nightly, First dose on Sun06/23/24 at 2099 2031 (Given - Provider: Keith Zuñiga RN) finasteride (PROSCAR) tablet 5 mg 5 mg, oral, Daily, First dose on Sun06/23/24 at 1829, HAZARDOUS Drug Precautions - Low Risk (Category A/NIOSH Group 3) Reproductive Risk Only: - Do NOT split, crush, or open dosage units - Single pair of ASTM standard [id number] certified chemotherapy gloves - Eye protection (goggles or face shield) required only with a potential for facial contact (i.e. concern for spitting or vomiting of the dose during or after administration) 1909 (Given - Provider: Keith Zuñiga RN) 0850 (Given - Provider: Georgie Guardado RN) iopamidoL (ISOVUE-370) 370 mg iodine /mL (76 %) injection 90 mL (COMPLETED) 90 mL, intravenous, Once in imaging, Starting on Sun06/24/24 at 1008, For 1 dose 1008 (Given - Provid er: Charmaine Metcalf) oxyBUTYnin (DITROPAN) tablet 5 mg 5 mg, oral, 2 times daily, First dose on Sun06/23/24 at 2099 2031 (Not Given - Provider: Keith Zuñiga RN - Reason: Patient/Resident/Agent refused - education provided ) 2560 (Given - Provider: Georgie Guardado RN) perflutren lipid microsphere (DEFINITY) 1.3 mL in sodium chloride 0.9% 8.7 mL injection 10 mL, intravenous, Administer over 10 Minutes, Once in imaging, Starting on Sun06/24/24 at 1504, For 1 dose, CV Medication Orders sodium chloride 0.9 % flush 10 mL (COMPLETED) 10 mL, intravenous, Once, On Sun06/24/24 at 1030, For 1 dose 1008 (Given - Provid er: Charmaine Metcalf) PRN Medication Order 06/22/2024 06/23/2024 06/24/2024 acetaminophen (TYLENOL) tablet 650 mg 650 mg, oral, Every 6 hours PRN, mild pain, Starting on Sun06/23/24 at 1552 bisacodyL (DULCOLAX) EC tablet 10 mg 10 mg, oral, Daily PRN, constipation, Starting on Sun06/23/24 at 1552, 1st line for treatment of constipation - give scheduled if no bowel movement in past 24 hours. Do not crush, chew, or split. ondansetron (PF) (ZOFRAN) injection 4 mg(Linked Group 1) 4 mg, intravenous, Every 8 hours PRN, vomiting, nausea, Starting on Sun06/23/24 at 1552, -ONLY give IV if patient is unable to take orally. -If inadequate response within 30 minutes, proceed to next-line agent or contact provider if no further options ordered. ondansetron ODT (ZOFRAN-ODT) disintegrating tablet 4 mg(Linked Group 1) 4 mg, oral, Every 8 hours PRN, vomiting, nausea, Starting on Sun06/23/24 at 1552, -Give IV if patient is unable to take orally. -If inadequate response within 30 minutes, proceed to next-line agent or contact provider if no further options ordered. For ODT tablets: -Do not remove from blister pack until just before administering. -Patient should allow tablet to dissolve on tongue. Linked Groups Order Group 1: ondansetron ODT (ZOFRAN-ODT) disintegrating tablet 4 mgJump to med 4 mg, oral, Every 8 hours PRN, vomiting, nausea, Starting on Sun06/23/24 at 1552, -Give IV if patient is unable to take orally. -If inadequate response within 30 minutes, proceed to next-line agent or contact provider if no further options ordered. For ODT tablets: -Do not remove from blister pack until just before administering. -Patient should allow tablet to dissolve on tongue. Or ondansetron (PF) (ZOFRAN) injection 4 mgJump to med 4 mg, intravenous, Every 8 hours PRN, vomiting, nausea, Starting on 06/23/24 at 1552, -ONLY give IV if patient is unable to take orally. -If inadequate response within 30 minutes, proceed to next-line agent or contact provider if no further options ordered. documented in this encounter Orders Medications Ordered That Robbie ht Not Have Been Administered Count Last Ordered Date First Ordered Date perflutren lipid microsphere (DEFINITY) 1.3 mL in sodium chloride 0.9% 8.7 mL injection 1 06/24/2024 acetaminophen (TYLENOL) tablet 650 mg 1 bisacodyL (DULCOLAX) EC tablet 10 mg 1 06/10 ondansetron (PF) (ZOFRAN) injection 4 mg 1 06/23/2024 ondansetron ODT (ZOFRAN-ODT) disintegrating tablet 4 mg 1 06/23/2024 Nursing Count Last Ordered Date First Orde red Date VITAL SIGNS 1 06/23/2024 Consult Count Last Ordered Date First Orde red Date IP CONSULT TO NEUROLOGY 1 06/24/2024 Admission Count Last Ordered Date First Orde red Date INITIATE OBSERVATION STATUS 1 06/23/2024 Transfer Count Last Ordered Date First Orde red Date ED TO FLOOR BED REQUEST 1 06/23/2024 Discharge Count Last Ordered Date First Orde red Date DISCHARGE PATIENT 1 06/24/2024 documented in this encounter Care Teams Fringe Maker Relationship Specialty Start Date End Date Mart Mooney MD [address] [place] [phone] PCP - General Internal Medicine 06/23/24 documented as of this encounter
--- OUTSIDE RECORDS SUMMARY | 2024-06-27 12:18 | XMS_ITS | Encounter Summary ---
Author Organization [employer] Address [address] [place] [address] Care Team Providers Care Crusher Foreman Name Role Phone Mart Mooney MD Primary Care Provider + [phone] Reason for Visit * Reason Onset Date Comments Referral 06/27/2024 Urology Referral Encounter Details Date Type Department Care Team ([facility] st Contact Info) Description 06/27/2024 Telephone Internal Medicine - [place] [address] [facility] [address] [place] [phone] Austen Cevallos MD [address] [facility] [address] [place] [address] Referral (Urology Referral) Social History Tobacco Use Types Packs/Day Years [...] documented in this encounter Progress Notes * Carmen tSein - 06/27/2024 12:04 PM EDT Please review this patients new referral request. The referral has been pended. Please complete thefollowing: If approved> sign order If denied>please give instructions and route to your practice nursing pool. Practice nurse should inform referrals and the patient if denied. * Carmen Stein - 06/27/2024 12:01 PM EDT Images from the original note were not included. What insurance does the patient have today? Payor: @[email or web address] Referrals cannot be processed if the insurance is not accurate. If the insurance listed above is NO BILLING INFORMATION FOUND FOR THIS ENCOUNTER then the patients correct insurance must be obtainedand registered in [facility] or their referral can not be processed. Name of person calling to request this referral? Alicia Referred To Provider (Include first and last name): Rafael Vincent NPI (if known): [phone] Order/Specialty requested [id number] Chief Complaint (Note: This is not a body part or a procedure): C61 Z19.1 Has the patient seen provider for this problem/Dx before? yes Referred To Provider Address: Referred To Provider Referred To Provider Does patient have an appointment scheduled?: yes If yes, what is the date of the appointment?: 06/27/2024 Is this a retro request? no Number of visits requested: 6 Is this appointment related to: MVA or worker compensation? no documented in this encounter Plan of Treatment Upcoming Encounters Date Type Department Care Team (Late st Contact Info) Description 07/01/2024 10:00 AM EDT Office Visit Neurology - [address] [place] [address] Jimi Ashton MD [id number] [place] [address] 12/04/2024 11:00 AM EDT Office Visit Internal Medicine - [place] [address] [facility] [address] [place] [phone] Austen Cevallos MD [address] [facility] [address] [place] [address] documented as of this encounter Visit Diagnoses Diagnosis Malignant neoplasm of prostate (CMS/HCC V24, CMS/HCC V28)- Primary Malignant neoplasm of prostate Hormone sensitive malignancy status documented in this encounter Care Teams Crusher Foreman Relationship Specialty Start Date End Date Mart Mooney MD [address] [facility] [address] [place] [phone] PCP - General Internal Medicine 06/23/24 documented as of this encounter
== END 2024-06-27 11:51 | disposition home or self-care (01) ==
LOC: HO.HUSH 11:12
PROVIDERS: PCP Internal Medicine; Visit Provider Urology
DX: C61 Malignant neoplasm of prostate (principal); Z19.1 Hormone sensitive malignancy status; R39.15 Urgency of urination
CPT/HCPCS: 99213; G2211

== ENCOUNTER → 2024-06-27 11:11 | Outpatient (BNVA) | payer MEDICARE, SELFPAY | PROVIDERS: PCP Internal Medicine; Visit Provider Urology | DX: N40.1 Benign prostatic hyperplasia with lower urinary tract symptoms (principal); R33.8 Other retention of urine; N48.6 Induration penis plastica; N52.9 Male erectile dysfunction, unspecified; N32.81 Overactive bladder; R39.15 Urgency of urination; R97.20 Elevated prostate specific antigen [PSA]; C61 Malignant neoplasm of prostate; Z19.1 Hormone sensitive malignancy status | CPT/HCPCS: 51798; 81003; 99212 ==

== ENCOUNTER 2024-12-09 13:38 | Outpatient (REF) | payer MEDICARE, SELFPAY ==
--- OUTSIDE RECORDS SUMMARY | 2024-12-04 11:00 | XMS_ITS | Encounter Summary ---
Author Organization [facility] Address [address] [place] [address] Care Team Providers Care Health Worker Name Role Phone Austen Cevallos MD Primary Care Provider [phone] Reason for Visit * Reason Comments Medicare Annual Wellness Visit Subsequen t Encounter Details Date Type Department Care Team ([facility] st Contact Info) Description 12/04/2024 11:00 AM EDT Office Visit Internal Medicine - [place] [address] [place] [phone] Austen Cevallos MD [address] [facility] [address] [place] [address] Malignant neoplasm of prostate ([facility] V24, [facility] V28) (Primary Dx); Primary hypertension; Hypercholesterolemia; Cerebrovascular accident (CVA) due to occlusion of right posterior cerebral artery (CMS/HCC V24, [facility] V28) Social History Tobacco Use Types Packs/Day Years Used Date Smoking Tobacco: Some Days Cigarettes Smokeless Tobacco: Never Alcohol Use Standard Drinks/Week Comments Yes 0 (1 standard drink = 0.6 oz pur e alcohol) occasional Interpersonal Safety Answer Date Record ed Physical Abuse Unrecognized value 06/23/2024 Verbal Abuse Unrecognized value 06/23/2024 Sex and Gender Information Value Date Recorded Sex Assigned at Male 06/23/2024 1:01 PM EDT Legal Sex Male 10:53 AM EDT Gender Identity Male 06/23/2024 1:01 PM EDT Sexual Orientation Straight 06/23/2024 1: 01 PM EDT documented as of this encounter Last Filed Vital Signs Vital Sign Reading Time Taken Comments Blood Pressure 138/70 12/04/2024 11:09 AM EDT Pulse 83 12/04/2024 11:09 AM EDT Temperature 36.8 C (98.2 F) 12/04/2024 11:09 AM EDT Respiratory Rate - - Oxygen Saturation 98% 12/04/2024 11:09 AM EDT Inhaled Oxygen Concentration - - Weight 54.7 kg (120 lb 9.6 oz) 12/04/2024 11:09 AM EDT Height 167.6 cm (5' 6 ) 12/04/2024 11:09 AM EDT Body Mass Index 19.47 12/04/2024 11:09 AM EDT documented in this encounter Functional Status [...] documented in this encounter Progress Notes * Austen Cevallos MD - 12/04/2024 11:00 AM EDTAssociated Problem(s): CVA (cerebral vascular accident) ([facility] V24, [facility] V28) Orders: CBC and differential; Future Comprehensive metabolic panel; Future Lipid panel with reflex to direct LDL; Future Thyroid stimulating hormone; Future * Austen Cevallos MD - 12/04/2024 11:00 AM EDT Images from the original note were not included. Medicare Annual Wellness Visit Note Patient Name: Keon Shepherd Date of : 1945 Race: Other Ethnicity: Other , /a, or [place] origin Date of Service: 12/04/2024 Patient Care Team: Austen Cevallos MD as PCP - General (Internal Medicine) Keith Armenta MD as Hr Specialist (Cardiology) Verónica Barrera NP as Nurse Practitioner (Cardiology) Keon is a 79 y.o. male presenting for Medicare Annual Wellness Visit Subsequent HPI History of CVA stable. Hyperlipidemia is under control. Hypertension stable. 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 V24, [facility] V28) Aphasia No Known Allergies Current Outpatient Medications Medication Instructions amLODIPine (NORVASC) 5 mg, oral, Daily atorvastatin (LIPITOR) 40 mg, oral, Daily cholecalciferol (VITAMIN D3) 1,000 Units, Daily finasteride (PROSCAR) 5 mg, Daily multivitamin tablet 1 tablet, Daily solifenacin (VESICARE) 5 mg tablet 1 tablet, Daily terazosin (HYTRIN) 10 mg, Nightly ubidecarenone (coenzyme Q10) 100 mg tablet 1 tablet, Daily Past Medical History: Diagnosis Date Essential hypertension DX:Essential hypertension Past Surgical History: Procedure Laterality Date COLONOSCOPY PROCEDURE: HISTORICAL COLONOSCOPY Social History Tobacco Use Smoking status: Some Days Types: Cigarettes Smokeless tobacco: Never Substance Use Topics Alcohol use: Yes Comment: occasional Drug use: Never Family History Problem Relation Name Age of Onset Liver cancer Father Immunization History Administered Date(s) Administered Influenza trivalent, 0.5mL (Fluad) 65yo and older 03/31/2017, 02/23/2019, 12/16/2019, 04/05/2021 Tdap Tetanus diptheria acellular pertussis (Boostrix; Adacel) 7yo and older 01/01/2022 Health Maintenance Topic Date Due COVID-19 Vaccine (1) Never done Pneumococcal Vaccine: 50+ Years (1 of 2 - PCV) Never done Zoster Vaccines (1 of 2) Never done RSV Immunization Adult Patients (1 - 1-dose 75+ series) Never done Social Influencers of Health Screening Never done Medicare Annual Wellness Visit Never done Depression Screening Never done Influenza Vaccine (1) 11/10/2024 Hypertension/CHF/CAD Annual BMP Blood Test 07/02/2025 Falls Risk Assessment 12/04/2025 Cholesterol Screening (Lipid Panel) 07/02/2029 DTaP,Tdap,and Td Vaccines (2 - Td or Tdap) 01/02/2032 HIB Vaccines Aged Out Hepatitis B Vaccines Aged Out IPV Vaccines Aged Out Hepatitis A Vaccines Aged Out MMR Vaccines Aged Out Varicella Vaccines Aged Out Meningococcal ACWY Vaccine Aged Out Meningococcal B Vaccine Aged Out HPV Vaccines Aged Out RSV Immunization Patients Under 20 months Aged Out Cognitive Function Assessment: Cognitive screening performed. Mini COG Clock Drawing Test: Normal Word Recall: Two Words Mini Cog Score: 4 Mini Cog Results: Negative screen for dementia Fall Screening: Fallen in the past year?: No Feels unsteady when standing or walking?: No Worries about falling?: Yes Depression Screening Over the last 2 weeks, how often have you been bothered by little interest or pleasure in doing things?: Not at all Over the last 2 weeks, how often have you been bothered by feeling down, depressed, or hopeless?: Several days Depression Risk: 1 PHQ9 Full Set of Questions Over the last 2 weeks, how often have you been bothered by little interest or pleasure in doing things?: Not at all Over the last 2 weeks, how often have you been bothered by feeling down, depressed, or hopeless?: Several days PHQ -9 Depression Risk Score: 1 Screening Result: Negative Risk Category: Negative Activity of Daily Living (ADLs): Activity of Daily Living (ADLs) Are you able to independently move around your home, with or without an assistive device such as a walker or wheelchair?: Yes Do you need help from others grooming, bathing, or dressing?: No Do you need help from others with eating?: No Do you need help from others for toileting?: No Do you experience urinary incontinence?: No Do you experience fecal incontinence?: No Instrumental Activities of Daily Living (IADLs): Do you need help with using the telephone?: No Do you need help with shopping?: No Do you need help with food preparation?: No Do you need help with housekeeping?: No Do you need help with laundry?: No Do you need help handling finances?: No Do you drive?: No Do you manage your own medication?: No Functional Ability and Level of Safety Review Health Status: Have you been hospitalized since we last saw you?: No If you use medical equipment (e.g.: CPAP Machine), do you have a preferred supplier?: N/A In general, the patient reports health as: good In general, patient reports life as: good Patient reports sleep pattern as: sleeping well Have you been bothered by sexual problems? : No Have you seen a dentist in the last year?: No Physical Activity: Do you exercise for about 20 minutes or more three days a week?: No Nutritional Assessment: Do you eat a balanced diet including daily serving of fruits, vegetables, and whole grains?: Yes, always Safety: Safety: Does the patient live alone?: No Does your home have throw rugs, poor lighting, or a slippery bathtub/shower?: No Does your home have functioning smoke detection?: Yes Do you use any assistive devices?: No Do you always fasten your seatbelt?: Yes Psychosocial Risks: Has stress been negatively affecting your life?: No Has anger been negatively affecting your life?: No Have you been bothered by unusual fatigue?: No Objective BP 138/70 (BP Location: Left arm, Patient Position: Sitting, BP Cuff Size: Large adult) Pulse 83 Temp 36.8 ??C (98.2 ??F) (Temporal) Ht 1.676 m (66 ) Wt 54.7 kg (120 lb 9.6 oz) BMI 19.47 kg/m?? SpO2: 98 % Hearing: No data recorded Vision Screening: Required for Medicare Initial Preventative Physical Exam (IPPE) No data recorded Physical Exam Cardiovascular heart sound normal. Lungs clear bilaterally. abdomen negative. MEDICAL OFFICE REP nonfocal. Patient presented today for an Subsequent Medicare Wellness Visit with management of chronic condition(s). Assessment & Plan Malignant neoplasm of prostate ([facility] V24, [facility] V28) Recent diagnosis of prostrate CA, under observation. Orders: CBC and differential; Future Comprehensive metabolic panel; Future Lipid panel with reflex to direct LDL; Future Thyroid stimulating hormone; Future Primary hypertension Under control on amlodipine Orders: CBC and differential; Future Comprehensive metabolic panel; Future Lipid panel with reflex to direct LDL; Future Thyroid stimulating hormone; Future Hypercholesterolemia Stable on Lipitor Orders: CBC and differential; Future Comprehensive metabolic panel; Future Lipid panel with reflex to direct LDL; Future Thyroid stimulating hormone; Future Cerebrovascular accident (CVA) due to occlusion of right posterior cerebral artery (CMS/HCC V24, CMS/HCC V28) Orders: CBC and differential; Future Comprehensive metabolic panel; Future Lipid panel with reflex to direct LDL; Future Thyroid stimulating hormone; Future Risk Assessments: Body mass index is 19.47 kg/m??. The BMI is in the acceptable range. Fall Risk: Have you fallen in the past year? no. Are you worried about falling? yes. Discussed: clear pathways/stairs PHQ -9 Depression Risk Score: 1 Depression plan: Screen was negative Pain Medication: Patient does not take any opioid medications Advance Care Planning Advance care planning is the process of planning for future medical care in case you are unable to make your own medical decisions. It involves choosing a health care factory representative and reviewing future health care directives. The patient Advance Directives: does have advance directives and/or surrogate decision maker.. Advance directives reviewed and/or discussed: Patient is not interested in discussing advance care planning or health care agent at this time. Health Maintenance Due Topic Date Due COVID-19 Vaccine (1) Never done Pneumococcal Vaccine: 50+ Years (1 of 2 - PCV) Never done Zoster Vaccines (1 of 2) Never done RSV Immunization Adult Patients (1 - 1-dose 75+ series) Never done Social Influencers of Health Screening Never done Medicare Annual Wellness Visit Never done Depression Screening Never done Influenza Vaccine (1) 11/10/2024 The following vaccine(s) were recommended: Vaccines Recommended: Patient up to date on all vaccines Patient Instructions (the written plan) as discussed and documented in our visit today. Fall risk is negative. Depression is stable. He is independent of activities of daily living. Home situation is safe. current on screening guidelines and vaccinations Austen Cevallos MD INTERNAL MEDICINE - [address] [facility] [address] Dept: [phone] Dept documented in this encounter Plan of Treatment Upcoming Encounters Date Type Department Care Team (Late st Contact Info) Description 01/06/2025 10:00 AM EDT Office Visit Neurology [address] [place] [phone] Jimi Ashton MD [address] [place] [address] 06/04/2025 11:00 AM EDT Office Visit Internal Medicine - [place] [address] [place] [phone] Austen Cevallos MD [address] [facility] [address] [address] [place] [address] Scheduled Orders Name Type Priority Associated Diagnoses Orde r Schedule CBC and differential Lab Routine Malignant neoplasm of prostate (CMS/HCC V24, CMS/HCC V28) Primary hypertension Hypercholesterolemia Cerebrovascular accident (CVA) due to occlusion of right posterior cerebral artery (CMS/HCC V24, CMS/HCC V28) 1 Occurrences starting 12/04/2024 until 12/04/2025 Comprehensive metabolic panel Lab Routine Malignant neoplasm of prostate (CMS/HCC V24, CMS/HCC V28) Primary hypertension Hypercholesterolemia Cerebrovascular accident (CVA) due to occlusion of right posterior cerebral artery (CMS/HCC V24, CMS/HCC V28) 1 Occurrences starting 12/04/2024 until 12/04/2025 Lipid panel with reflex to direct LDL Lab Routine Malignant neoplasm of prostate (CMS/HCC V24, CMS/HCC V28) Primary hypertension Hypercholesterolemia Cerebrovascular accident (CVA) due to occlusion of right posterior cerebral artery (CMS/HCC V24, CMS/HCC V28) 1 Occurrences starting 12/04/2024 until 12/04/2025 Thyroid stimulating hormone Lab Routine Malignant neoplasm of prostate (CMS/HCC V24, CMS/HCC V28) Primary hypertension Hypercholesterolemia Cerebrovascular accident (CVA) due to occlusion of right posterior cerebral artery (CMS/HCC V24, CMS/HCC V28) 1 Occurrences starting 12/04/2024 until 12/04/2025 documented as of this encounter Goals Goal Patient Goal Type Associated Problems Recent Progress Patient-Stated? Author PT LTG - 8 visits General No Ksenia Hoskins PT Note: Patient reports subjective decrease in back pain and leg pain Patient is able to perform 5 sit to carbonating stone cleaner <18 seconds Patient is able to achieve 4+/5 hip abduction strength bilaterally Slight gastroc flexibility restriction bilaterally Patient is independent and compliant with HEP documented as of this encounter Visit Diagnoses Diagnosis Malignant neoplasm of prostate ([facility] V24, [facility] V28)- Primary Malignant neoplasm of prostate Primary hypertension Unspecified essential hypertension Hypercholesterolemia Pure hypercholesterolemia Cerebrovascular accident (CVA) due to occlusion of right posterior cerebral artery ([facility] V24, [facility] V28) documented in this encounter Additional Health Concerns Assessment Noted Time PHQ-9 Depression Total Score: 1 12/05/19 11:08 AM EDT A fall risk assessment has been complete d for the patient 12/04/2024 11:07 AM EDT documented as of this encounter Care Teams Health Worker Relationship Specialty Start Date End Date Austen Cevallos MD [address] [place] [address] PCP - General Internal Medicine 07/01/24 documented as of this encounter
--- OUTSIDE RECORDS SUMMARY | 2024-12-09 14:55 | XMS_ITS | Clinical Summary ---
Author Organization Patient Business Ser [facility] Address [address] [place] [address] Care Team Providers Care Building Maintenance Superintendent Name Role Phone Austen Cevallos MD Primary Care Provider [phone] Allergies No known active allergies Medications solifenacin (VESICARE) 5 mg tablet Take 1 tablet (5 mg total) by mouth 1 (one) time each day. 01/12/2022 Active terazosin (HYTRIN) 10 mg capsule Take 1 capsule (10 mg total) by mouth at bedtime. 12/02/2021 Active finasteride (PROSCAR) 5 mg tablet Take 1 tablet (5 mg total) by mouth 1 (one) time each day. 12/01/2023 Active cholecalciferol (Vitamin D3) 25 mcg (1,000 unit) tablet Take 1 tablet (1,000 Units total) by mouth 1 (one) time each day. Active ubidecarenone (coenzyme Q10) 100 mg tablet Take 1 tablet by mouth 1 (one) time each day. With red yeast rice Active multivitamin tablet Take 1 tablet by mouth 1 (one) time each day. 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 90 each 3 07/11/2024 Active Active Problems Problem Noted Date Diagnosed Date Aphasia 07/03/2024 CVA (cerebral vascular accident) (CMS/HCC V24, C MS/HCC V28) 06/23/2024 Assessment & Plan (12/04/2024 11:36 AM EDT): Orders: CBC and differential; Future Comprehensive metabolic panel; Future Lipid panel with reflex to direct LDL; Future Thyroid stimulating hormone; Future Assessment & Plan (09/24/2024 4:01 PM EDT): Patient underwent evaluation for possible atrial fibrillation with a 30-day case monitor which did not reveal any evidence of atrial fibrillation. I reviewed the results with the patient and his spouse today. It is unclear why the patient had a recurrent CVA however does not appear that he has any evidence of atrial fibrillation. Echocardiogram results were also reviewed and showed no concerning findings. At this point the patient does not require any additional cardiac testing. Recommend he follow-up with neurology as planned. 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 Curiel is suffering with back pain and numbness [...] Encounters Date Type Department Care Team Description 12/04/2024 11:00 AM EDT Office Visit Internal Medicine - [address] [place] [address] Austen Cevallos MD Malignant neoplasm of prostate ([facility] V24, [facility] V28) (Primary Dx); Primary hypertension; Hypercholesterolemia; Cerebrovascular accident (CVA) due to occlusion of right posterior cerebral artery ([facility]/HCC V24, CMS/HCC V28) 11/05/2024 12:30 PM EDT Treatment [facility] [address] [phone] Lam Hernandez, FREEDOM OF INFORMATION OFFICER Weakness of both lower extremities (Primary Dx) 11/03/2024 11:30 AM EDT Treatment [facility] [address] [phone] Roshan Randhawa, FREEDOM OF INFORMATION OFFICER Weakness of both lower extremities (Primary Dx) 10/29/2024 11:30 AM EDT Treatment [facility] [address] [phone] Domingo Mane, FREEDOM OF INFORMATION OFFICER Weakness of both lower extremities (Primary Dx) 10/27/2024 6:00 PM EDT Treatment [facility] [address] [phone] Roshan Randhawa, FREEDOM OF INFORMATION OFFICER Weakness of both lower extremities (Primary Dx) 10/07/2024 12:30 PM EDT Evaluation [facility] [address] [phone] Ksenia Hoskins, PT Weakness of both lower extremities; Chronic back pain, unspecified back location, unspecified back pain laterality 09/23/2024 2:40 PM EDT Office Visit [facility] [address] [place] [phone] Verónica Barrera NP Cerebrovascular accident (CVA) due to occlusion of right posterior cerebral artery ([facility] V24, [facility] V28) (Primary Dx) 09/15/2024 11:15 AM EDT Evaluation [facility] [address] [phone] Jeferson Gautam, OT Cerebrovascular accident (CVA), unspecified mechanism (CMS/HCC V24, CMS/HCC V28) (Primary Dx) 09/09/2024 12:30 PM EDT Treatment [facility] [address] [place] [phone] Rosa Aleman COTA/Keena Cerebrovascular accident (CVA), unspecified mechanism (CMS/HCC V24, CMS/HCC V28) (Primary Dx) from Last 3 Months Immunizations Immunization Administration Dates Next Due Influenza trivalent, 0.5mL ( Fluad) 65yo and older 04/05/2021,12/16/2019,02/23/2019,2017 Tdap Tetanus diptheria acell ular pertussis (Boostrix; [...] Tobacco: Some Days Cigarettes Smokeless Tobacco: Never Tobacco Cessation:Ready to Q uit: Not Asked; Counseling Given: Not Answered Alcohol Use Standard Drinks/Week Comments Yes 0 [...] F) 12/04/2024 11:09 AM EDT Respiratory Rate 16 06/24/2024 3:26 PM EDT Oxygen Saturation 98% 12/04/2024 11:09 AM EDT Inhaled Oxygen Concentration - - Weight 54.7 kg (120 lb 9.6 oz) 12/04/2024 11:09 AM EDT Height 167.6 cm (5' 6 ) 12/04/2024 11:09 AM EDT Body Mass Index 19.47 12/04/2024 11:09 AM EDT Plan of Treatment Upcoming Encounters Date Type Department Care Team (Late st Contact Info) Description 01/06/2025 10:00 AM EDT Office Visit Neurology - [place] [address] [facility] [address] [place] [phone] Jimi Ashton MD [address] [facility] [address] [place] [address] 06/04/2025 11:00 AM EDT Office Visit Internal Medicine - [place] 175 [facility] [address] [place] [phone] Austen Cevallos MD 175 [facility] [address] [place] [address] Health Maintenance Due Date Last Done Comments COVID-19 Vaccine (#1) 01/06/1950 Pneumococcal Vaccine: 50+ Years (1 of 2 - PCV) 01/06/1963 Zoster Vaccines (1 of 2) 01/06/1963 RSV Immunization Adult Patients (1 - 1-dose 75+ series) 01/06/2019 Social Influencers of Health Screening 01/09/2022 Influenza Vaccine (#1) 2024 , 12/16/2019, 02/23/2019, Additional history exists Hypertension/CHF/CAD Annual BMP Blood Test 07/02/2025 07/02/2024, 06/24/2024, 06/23/2024, Additional history exists Falls Risk Assessment 12/04/2025 12/04/2024, 025 Medicare Annual Wellness Visit 12/04/2025 12/04/2024 Cholesterol Screening (Lipid Panel) 07/02/2029 07/02/2024, 06/24/2024, 10/10/2023, Additional history exists DTaP,Tdap,and Td Vaccines (2 - Td or Tdap) 01/02/2032 01/01/2022 Depression Screening Completed 12/04/2024 HIB Vaccines Aged Out No longer eligi [...] on patient's age to complete this topic Goals Goal Patient Goal Type Associated Problems Recent Progress Patient-Stated? Author PT LTG - 8 visits General No Ksenia Hoskins PT Note: Patient reports subjective decrease in back pain and leg pain Patient is able to perform 5 sit to cell liner <18 seconds Patient is able to achieve 4+/5 hip abduction strength bilaterally Slight gastroc flexibility restriction bilaterally Patient is independent and compliant with HEP Procedures Procedure Name Priority Date/Time Associated Diagnosis Comments COMPREHENSIVE METABOLIC PANEL Routine 07/02/2024 10:24 AM EDT Primary hypertension Iron deficiency anemia due to chronic blood loss Hypercholesterolem ia LIPID PANEL WITH REFLEX TO DIRECT LDL Routine 07/02/2024 10:24 AM EDT Primary hypertension Iron deficiency anemia due to chronic blood loss Hypercholesterolem ia from Last 3 Months or Most Recently Relevant to Health Maintenance Results * Lipid panel with reflex to direct LDL (07/02/2024 10:24 AM EDT) Cholesterol 145 0 - 200 mg/dL LAB CHEMISTRY METHOD 07/02/2024 12:49 PM EDT [facility] Triglycerides 118 0 - 150 mg/dL LAB CHEMISTRY METHOD 07/02/2024 12:49 PM EDT [facility] HDL 59 >=40 mg/dL LAB CHEMISTRY METHOD 07/02/2024 12:49 PM EDT [facility] LDL Calculated 62 0 - 100 mg/dL LAB CHEMISTRY METHOD 07/02/2024 12:49 PM T [facility] VLDL Cholesterol Олег 23.6 mg/dL LAB CHEMISTRY METHOD 07/02/2024 12:49 PM EDT [facility] Non HDL Chol. (LDL+VLDL) 86 <145 mg/dL LAB CHEMISTRY METHOD 07/02/2024 12:49 PM EDT [facility] Chol/HDL Ratio 2.5 0.0 - 4.4 LAB CHEMISTRY METHOD 07/02/2024 12:49 PM [facility] Blood Venous blood specimen / Unknown Venipuncture / Unknown 07/02/2024 10:24 AM EDT 07/02/2024 11:49 AM EDT us Austen Cevallos MD LAB BLOOD ORDERABLES Final Resul t [facility] [address] [place] [address], [place] [phone] * Comprehensive metabolic panel (07/02/2024 10:24 AM EDT) Sodium 143 133 - 145 mmol/L LAB CHEMISTRY METHOD 07/02/2024 12:49 PM [facility] Potassium 4.0 3.5 - 5.5 mmol/L LAB CHEMISTRY METHOD 07/02/2024 12:49 PM [facility] Chloride 106 96 - 110 mmol/L LAB CHEMISTRY METHOD 07/02/2024 12:49 PM [facility] CO2 30 21 - 32 mmol/L LAB CHEMISTRY METHOD 07/02/2024 12:49 PM [facility] Anion Gap 7 3 - 11 LAB CHEMISTRY METHOD 07/02/2024 12:49 PM [facility] Glucose 91 70 - 100 mg/dL LAB CHEMISTRY METHOD 07/02/2024 12:49 PM [facility] BUN 14 5 - 25 mg/dL LAB CHEMISTRY METHOD 07/02/2024 12:49 PM [facility] Creatinine 0.95 0.70 - 1.30 mg/dL LAB CHEMISTRY METHOD 07/02/2024 12:49 PM [facility] eGFR 81 >=60 mL/min/1. 73m2 LAB CHEMISTRY METHOD 07/02/2024 12:49 PM [facility] Comment:Calculation based on the Chronic Kidney Disease Epidemiology Collaboration (CKD-EPI) equation refit without adjustment for race. BUN/Creatinine Ratio 14.7 LAB CHEMISTRY METHOD 07/02/2024 12:49 PM [facility] Calcium 9.4 8.5 - 10.5 mg/dL LAB CHEMISTRY METHOD 07/02/2024 12:49 PM [facility] AST (SGOT) 26 10 - 42 unit/L LAB CHEMISTRY METHOD 07/02/2024 12:49 PM [facility] ALT (SGPT) 31 10 - 60 unit/L LAB CHEMISTRY METHOD 07/02/2024 12:49 PM [facility] Alkaline Phosphatase 83 42 - 121 unit/L LAB CHEMISTRY METHOD 07/02/2024 12:49 PM [facility] Total Protein 7.0 6.0 - 8.0 g/dL LAB CHEMISTRY METHOD 07/02/2024 12:49 PM [facility] Albumin 3.7 3.2 - 5.0 g/dL LAB CHEMISTRY METHOD 07/02/2024 12:49 PM [facility] Total Bilirubin 0.5 0.0 - 1.4 mg/dL LAB CHEMISTRY METHOD 07/02/2024 12:49 PM [facility] Blood Venous blood specimen / Unknown Venipuncture / Unknown 07/02/2024 10:24 AM EDT 07/02/2024 11:49 AM EDT us Austen Cevallos MD LAB BLOOD ORDERABLES Final Resul t [facility] [address] [place] [address], from Last 3 Months or Most Recently Relevant to Health Maintenance Insurance [employer] Advance Directives * [...] currently active code status orders. Care Teams Building Maintenance Superintendent Relationship Specialty Start Date End Date Austen Cevallos MD [address] [address] PCP - General Internal Medicine 07/01/24
--- OUTSIDE RECORDS SUMMARY | 2024-12-09 14:55 | XMS_ITS ---
Author Name [facility] Organization Unknown History of Medication Use Medication Directions Dispensed Refills Start Date End Date Stat aspirin 81 mg EC tablet Take 1 tablet (81 mg total) by mouth 1 (one) time each day. 06/25/2024 active atorvastatin (LIPITOR) 40 mg tablet Take 1 tablet (40 mg total) by mouth 1 (one) time each day. 06/24/2024 active amLODIPine (NORVASC) 5 mg tablet TAKE 1 TABLET BY MOUTH EVERY DAY 01/21/2024 active finasteride (PROSCAR) 5 mg tablet Take 1 tablet (5 mg total) by mouth 1 (one) time each day. 12/01/2023 active solifenacin (VESICARE) 5 mg tablet Take 1 tablet (5 mg total) by mouth 1 (one) time each day. 01/12/2022 active terazosin (HYTRIN) 10 mg capsule Take 1 capsule (10 mg total) by mouth. 12/02/2021 active Problems Problem Status Onset Date Problem Type Date of Resolution Source Essential hypertension active EncounterDiagnosisAct [facility] AVM (arteriovenous malformation) of colon active 2024-02-15 Problem[address] [facility] History of stroke active EncounterDiagnosisAct [facility] History of colon polyps active 2023-12-27 ProblemAct [facility] Iron deficiency anemia active 2021-09-15 ProblemAct [facility] History of Helicobacter pylori infection active 2024-02-15 Problem[address] [facility] CVA (cerebral vascular accident) (CMS/HCC V24, CMS/HCC V28) active 2024-06-23 Problem[address] [facility] 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 active 2024-02-15 Problem[address] [facility] Spinal stenosis, unspecified spinal region active EncounterDiagnosisAct [facility] Cigarette nicotine dependence without complication active EncounterDiagnosisAct [facility] History of iron deficiency anemia active 2024-02-15 ProblemAct [facility] Spinal stenosis of lumbar region with neurogenic claudication active 2022-03-21 ProblemAct [facility] Immunizations Vaccine Date Source Lot Number Status Tdap Tetanus diptheria acell ular pertussis (Boostrix; Adacel) 7yo and older 01/01/2022 [facility] [id number] completed Influenza trivalent, 0.5mL ( Fluad) 65yo and older 04/05/2021 [facility] [id number] completed Influenza trivalent, 0.5mL ( Fluad) 65yo and older 12/16/2019 [facility] [id number] completed Influenza trivalent, 0.5mL ( Fluad) 65yo and older 02/23/2019 [facility] [id number] completed Influenza trivalent, 0.5mL ( Fluad) 65yo and older 03/31/2017 [facility] [id number] completed Encounters Encounter Type Encounter Reason Primary Diagnosis Location Date Ambulatory Personal history of transient ischemic attack (TIA), and cerebral infarction without residual deficits Personal history of transient ischemic attack (TIA), and cerebral infarction without residual deficits [facility] 07/01/2024 Care Team Organization Name Specialty Phone Email Start Date End Da te [facility] 10/29/2024 [facility] Primary Care 07/03/2024 [facility] Primary Care 07/01/2024 [facility] SAM KRISHNAN Primary Care 01/17/2022 10/29/19 24
--- OUTSIDE RECORDS SUMMARY | 2024-12-09 14:55 | XMS_ITS | Clinical Summary ---
Author Organization [facility] Address [address] [place] [address] Care Team Providers Care Horticulture Teacher Name Role Phone Austen Cevallos MD Primary [...] 90 12/27/2021 11:42 AM EDT Temperature 36.9 C (98.4 F) 12/27/2021 11:42 AM EDT Respiratory Rate - - Oxygen Saturation 100% [...] 1-dose 75+ series) 01/06/2019 Influenza Vaccine (#1) 2024 12/16/2019 Hepatitis B Vaccines Aged Out No long er eligible based on patient's age to complete this topic RSV Ped < 20 months Aged Out No longe r eligible based on patient's age to complete this topic Care Teams Horticulture Teacher Relationship Specialty Start Date End Date Austen Cevallos MD PCP - General Internal Medicine 08/26/21
[2024-12-09 15:55] LABS: Prostate Specific Antigen 4.53 ng/mL (<0.05-4.0)
== END 2024-12-09 13:39 | disposition home or self-care (01) ==
LOC: HO.LAB 13:38
PROVIDERS: PCP Internal Medicine; Visit Provider Urology
DX: C61 Malignant neoplasm of prostate (principal); Z19.1 Hormone sensitive malignancy status; Z12.5 Encounter for screening for malignant neoplasm of prostate
CPT/HCPCS: 36415; 84153

== ENCOUNTER 2024-12-26 10:58 | Outpatient (AMB) | payer MEDICARE, SELFPAY ==
--- OUTSIDE RECORDS SUMMARY | 2024-12-26 02:10 | XMS_ITS | Encounter Summary ---
Author Organization [employer] Address [address] [place] [address] Care Team Providers Care Wholesale Account Manager Name Role Phone Austen Cevallos MD Primary Care Provider Encounter Details Date Type Department Care Team ([facility] st Contact Info) Description 12/26/2024 2:10 AM EDT Ancillary Procedure [facility] - [facility] [address] [facility] [address] [place] [address] Arrived Social History Tobacco Use Types Packs/Day Years [...] Elizabeth Adamson RN documented in this encounter Plan of Treatment Upcoming Encounters Date Type Department Care Team (Late st Contact Info) Description 01/06/2025 10:00 AM EDT Office Visit Neurology [address] [place] [phone] Jimi Ashton MD [address] [facility] [address] [place] [address] 06/04/2025 11:00 AM EDT Office Visit Internal Medicine - [place] [address] [facility] [address] [place] [phone] Austen Cevallos MD 175 [facility] [address] [place] [address] documented as of this encounter Goals Goal Patient Goal Type Associated Problems Recent Progress Patient-Stated? Author PT LTG - 8 visits General No Ksenia Hoskins PT Note: Patient reports subjective decrease in back pain and leg pain Patient is able to perform 5 sit to business applications specialist <18 seconds Patient is able to achieve 4+/5 hip abduction strength bilaterally Slight gastroc flexibility restriction bilaterally Patient is independent and compliant with HEP documented as of this encounter Procedures Procedure Name Priority Date/Time Associated Diagnosis Comments CARDIAC DEVICE CHECK- REMOTE- MURJ Routine 12/26/2024 2:06 AM EDT documented in this encounter Results * Cardiac device check - Remote- MURJ (12/26/2024 2:06 AM EDT) Date Time Interrogation Session [id number] CV DEVICE CHECK Type Interrogation Session Remote CV DEVICE CHECK Implantable Pulse Generator Patrol Judge MDT CV DEVICE CHECK Implantable Pulse Generator Type ILR CV DEVICE CHECK Implantable Pulse Generator Model [id number] CV DEVICE CHECK Implantable Pulse Generator Serial Number [id number] CV DEVICE CHECK Implantable Pulse Generator Implant Date 20241219 CV DEVICE CHECK Battery Status Middle of Service CV DEVICE CHECK Zone Setting Type Category Alvaro CV DEVICE CHECK Rate 30 CV DEVICE CHECK Duration 4 CV DEVICE CHECK Zone Setting Status On CV DEVICE CHECK Zone ID 1 CV DEVICE CHECK Zone Setting Type Category Pause CV DEVICE CHECK Rate 3 CV DEVICE CHECK Zone Setting Status On CV DEVICE CHECK Zone ID 2 CV DEVICE CHECK Zone Setting Type Category AF CV DEVICE CHECK Zone Setting Status On CV DEVICE CHECK Zone ID 3 CV DEVICE CHECK Zone Setting Type Category AT CV DEVICE CHECK Zone Setting Status Off CV DEVICE CHECK Zone ID 4 CV DEVICE CHECK Zone Setting Type Category Tachy CV DEVICE CHECK Rate 150 CV DEVICE CHECK Duration 16 CV DEVICE CHECK Zone Setting Status On CV DEVICE CHECK Zone ID 7 CV DEVICE CHECK Date of Service 2025-01-20 CV DEVICE CHECK Anatomical Region Laterality Modality Device Interroga tion 12/23/2024 12:0 1 AM EDT Impressions 12/26/2024 1:53 AM EDT Normal Remote: No Events Initial transmission * This is a normal remote diagnostic device check * Alerts or events: None * Battery data was reviewed * Battery status: OK, * Presenting rhythm reviewed * Heart Rate Histograms reviewed Narrative Procedure Note Ranjana Delgado MD - 12/26/2024 IMPRESSION: Normal Remote: No Events Initial transmission * This is a normal remote diagnostic device check * Alerts or events: None * Battery data was reviewed * Battery status: OK, * Presenting rhythm reviewed * Heart Rate Histograms reviewed Ranjana Delgado MD CV IMPLANTABLE CARDIAC DEV ICE PROCEDURES Final Result documented in this encounter Visit Diagnoses Not on filedocumented in this encounter Additional Health Concerns Assessment Noted Time PHQ-9 Depression Total Score: 1 12/05/19 11:08 AM EDT A fall risk assessment has been complete d for the patient 12/04/2024 11:07 AM EDT documented as of this encounter Care Teams Wholesale Account Manager Relationship Specialty Start Date End Date Austen Cevallos MD [address] [address] PCP - General Internal Medicine 07/01/24 documented as of this encounter
--- NOTE | 2024-12-26 11:07 | MHC.OFFVIS ---
Intake Visit Reasons: 6m/PSA Intake Note: Patient is present for 6mo follow up/psa Urology Medication:FINASTERIDE,SILDENAFIL,SOLIFENACIN Blood Thinner: aspirin labs done 12/09/24: psa 4.53 Risk Compliance Manager Required: No Accompanied by: Spouse Allergies No Known Allergies Allergy (Verified 12/26/24 11:10) HPI Comments Details: Keon is a pleasant male. He is a patient of Dr. Cevallos. He is seen for the following urologic conditions - lower urinary tract symptoms - Peyronie's disease - erectile dysfunction - overactive bladder Active surveillance PSA remains stable Switch from solifenacin to Myrbetriq Prostate cancer - favorable intermediate, low volume disease Recommend surveillance Biopsy Test Report from [employer] with the following results: - Prolaris molecular score: 3.2 - Recommendation for treatment path: Active surveillance 04/05 Histologic type: Acinar adenocarcinoma Histologic grade: Beryl score: 3+3=6 (C) 10%; 3+4=7(L) 30% Grade group: 1 (C); 2(L) Number cores positive: 2 Total number of cores: 12 TRUS biopsy 25 g, PSA 5.9 pT1c PVR remains in range on higher dose solifenacin Lower Urinary Tract Symptoms: Current visit is for further evaluation of, lower urinary tract symptoms, predominate irritative symptoms - effective urination maintained does take alpha-santos daily. Current treatment includes alpha santos. Prior treatments include medication, terazosin 10 mg - procedure, laser procedure office Oct 2015. - 10/31 GREENLIGHT LASER - improved stream Prostate Symptom Score Mild (0-8). Prior Prostate Score mild. PSA 07/26 1.8, 07/27 2.8, 07/28 2.4, 07/30 3.0, 11/01 5.0, 09/02 6.4, 03/04 5.7 5%, 12/04 4.5 Treatment plan PVR surveillance Recurring urinary tract infection 03/01 mixed kiera PFSH Medical History Low back pain Anemia Muscle pain UTI (urinary tract infection) HTN (hypertension) Incomplete emptying of bladder Weak urinary stream Peyronie's disease Surgical History Hx of cystoscopy Hx of colonoscopy History of surgery Social History Are you a primary geriatric personal care aide to a significant other at home: No Do you presently have visiting nurse or other home services: No Comment: previously medicated with po tylenol and tramadol Patient Tobacco Use Status: Former Tobacco user Tobacco use type: Cigarette Review of Systems Const Denies chills and Denies fever(s) Card Reports no additional complaints and Denies syncope Resp Denies cough GI Denies abdominal pain and Denies heartburn Reports as per HPI and Denies change in libido Neuro Denies syncope Psych Denies change in libido Endo Denies change in libido Physical Exam Const General: cooperative, healthy appearing, comfortable and no acute distress Orientation/consciousness: patient oriented x3 HEENT Face and sinus: Yes normal facial exam Mouth: moist mucous membranes Neck Neck: Yes normal visual inspection, Yes full ROM and Yes trachea midline Chest Chest palpation & inspection: normal inspection of the chest Resp Effort & Inspection: normal respiratory effort, able to speak in complete sentences and no respiratory distress GI Inspection: Yes normal to inspection Back/Spine/Pelvis Cervical Spine: normal cervical lordosis Thoracic/Lumbar Spine: thoracic and lumbar spine normal to inspection Skin General skin exam: no rashes or lesions noted Neuro General: patient oriented x3, gait normal, tone normal and moves all extremities Extrem General: Yes normal to inspection and Yes capillary refill normal Assessment & Plan Assessment & Plan (1) BPH w urinary obs/LUTS: Code(s): N40.1 - Benign prostatic hyperplasia with lower urinary tract symptoms; N13.8 - Other obstructive and reflux uropathy Category: Medical (2) Erectile dysfunction: Code(s): N52.9 - Male erectile dysfunction, unspecified Category: Medical (3) Hormone sensitive prostate cancer: Code(s): C61 - Malignant neoplasm of prostate; Z19.1 - Hormone sensitive malignancy status Category: Medical Plan Six-month follow-up PSA Orders: Orders Prostate Specific Antigen 6 Months C61 - Malignant neoplasm of prostate, Z19.1 - Hormone sensitive malignancy status Medications: New mirabegron ER 25 mg PO DAILY 90 tabs 1RF 90 days R39.15 - Urgency of urination Refilled finasteride 5 mg PO DAILY 90 tabs 1RF 90 days N13.8 - Other obstructive and reflux uropathy, N40.0 - Benign prostatic hyperplasia without lower urinary tract symptoms, N40.1 - Benign prostatic hyperplasia with lower urinary tract symptoms, R33.9 - Retention of urine, unspecified, R97.20 - Elevated prostate specific antigen [PSA] Discontinued solifenacin Discontinued Reason: Patient Completed Course 10 mg PO DAILY 90 days 90 tabs 1RF R39.15 - Urgency of urination Patient Instructions: This note is constructed using voice recognition software. While every effort has been made to ensure accuracy field service consultant errors may have been included. Imaging studies, laboratory and physical exam results were discussed and reviewed in detail. No major barriers to patient understanding were identified. An opportunity to ask questions regarding the treatment plan was provided. All questions were answered. The patient expressed understanding and agreement with the above treatment plan. The patient is aware they should contact our office by phone for worsening of their current condition or the appearance of new urologic symptoms. Compliance is encouraged with any medications and followup testing that is ordered. It is a privilege to participate in the urologic care of your patient. If you have any questions or concerns regarding treatment for the above conditions, or other urologic issues, please do not hesitate to contact me. The office telephone contact is [phone]. Sincerely, Dr Rafael Vincent MD, [facility] - Urology Compassionate Specialist Care for the Genitourinary System Coding Level of Care Code Est Pt Level 4 (83946) Complex EM visit Add On G2211 Diagnoses BPH w urinary obs/LUTS N40.1; N13.8 Erectile dysfunction N52.9 Hormone sensitive prostate cancer C61; Z19.1
--- OUTSIDE RECORDS SUMMARY | 2024-12-26 13:37 | XMS_ITS | Clinical Summary ---
Author Organization [facility] Address [address] [place] [address] Care Team Providers Care Template Maker Name Role Phone Austen Cevallos MD Primary [...] age to complete this topic Care Teams Template Maker Relationship Specialty Start Date End Date Austen Cevallos MD PCP - General Internal Medicine 08/26/21
--- OUTSIDE RECORDS SUMMARY | 2024-12-26 13:37 | XMS_ITS | Clinical Summary ---
Author Organization Patient Business Ser [facility] Address [address] [place] [address] Care Team Providers Care Sow Manager Name Role Phone Austen Cevallos MD Primary Care Provider [phone] Allergies No known active allergies Medications solifenacin [...] for possible atrial fibrillation with a 30-day automotive specialty technician which did not reveal any evidence of [...] Overview (12/27/2023): Last Assessment & Plan: Mr. Cuirel is suffering with back pain and numbness [...] Encounters Date Type Department Care Team Description 12/26/2024 2:10 AM EDT Ancillary Procedure [facility] [address] [facility] [address] [place] [address] Arrived 12/04/2024 11:00 AM EDT Office Visit Internal Medicine [address] [place] [phone] Austen Cevallos MD Malignant neoplasm of prostate [place] [place] [facility] [place]28[place] (Primary Dx); Primary hypertension; Hypercholesterolem ia; Cerebrovascular accident (CVA) due to occlusion of right posterior cerebral artery ([facility] [place] [facility] V28[place] 11/05/2024 12:30 PM EDT Treatment [address] [address] Lam Hernandez, MOLD CONSTRUCTION SUPERVISOR Weakness of both lower extremities (Primary Dx) 11/03/2024 11:30 AM EDT Treatment [address] [address] Roshan Randhawa, MOLD CONSTRUCTION SUPERVISOR Weakness of both lower extremities (Primary Dx) 10/29/2024 11:30 AM EDT Treatment [address] [address] Domingo Mane, MOLD CONSTRUCTION SUPERVISOR Weakness of both lower extremities (Primary Dx) 10/27/2024 6:00 PM EDT Treatment [address] [address] Roshan Randhawa, MOLD CONSTRUCTION SUPERVISOR Weakness of both lower extremities (Primary Dx) 10/07/2024 12:30 PM EDT Evaluation [address] [address] Ksenia Hoskins, PT Weakness of both lower extremities; Chronic back pain, unspecified back location, unspecified back pain laterality from Last 3 Months Immunizations Immunization Administration [...] 01/06/2025 10:00 AM EDT Office Visit Neurology [address] [place] [address] Jimi Ashton MD [address] [facility] [address] [place] [address] 06/04/2025 11:00 AM EDT Office Visit Internal Medicine - [place] [address] [place] [address] Austen Cevallos MD [address] [facility] [address] [place], [place] [id number] Health Maintenance Due Date Last Done Comments COVID-19 Vaccine (#1) 01/06/1950 Pneumococcal Vaccine: 50+ Years (1 of 2 - PCV) 01/06/1963 Zoster Vaccines (1 of 2) 01/06/1963 RSV Immunization Adult Patients (1 - 1-dose 75+ series) 01/06/2019 Social Influencers of Health Screening 01/09/2022 Influenza Vaccine (#1) 2024 , 04/05/2021, 12/16/2019, Additional history exists Hypertension/CHF/CAD Annual BMP Blood [...] Patient is independent and compliant with [employer] Medical Devices Implanted Type Area Local Truck Driver Device Identifier Shelf Expiration Date Model / Serial / Lot Medt-Card [id number] Implanted:12/10 (Quantity not on file) Cardiac Loop Recorder [employer] - CARDIAC RHYTH-CRDM [id number] / [id number] / Procedures Procedure Name Priority Date/Time Associated Diagnosis Comments CARDIAC DEVICE CHECK- REMOTE- MURJ Routine 12/26/2024 2:06 AM EDT EXTERNAL CLINICAL LAB 12/10/2024 COMPREHENSIVE METABOLIC PANEL Routine 07/02/2024 10:24 AM EDT Primary hypertension Iron deficiency anemia due to chronic blood loss Hypercholesterolem ia LIPID PANEL WITH REFLEX TO DIRECT LDL Routine 07/02/2024 10:24 AM EDT Primary hypertension Iron deficiency anemia due to chronic blood loss Hypercholesterolem ia from Last 3 Months or Most Recently Relevant to Health Maintenance Results * Cardiac device check - Remote- MURJ (12/26/2024 2:06 AM EDT) Date Time Interrogation Session [id number] CV DEVICE CHECK Type Interrogation Session Remote CV DEVICE CHECK Implantable Pulse Generator Local Truck Driver MDT CV DEVICE CHECK Implantable Pulse Generator Type ILR CV DEVICE CHECK Implantable Pulse Generator Model [id number] CV DEVICE CHECK Implantable Pulse Generator Serial Number [id number] CV DEVICE CHECK Implantable Pulse Generator Implant [...] IMPLANTABLE CARDIAC DEV ICE PROCEDURES Final Result * External clinical lab (12/10/2024) us Provider [facility] LAB BLOOD ORDERABLES Fin al Result * Lipid panel with reflex to direct LDL (07/02/2024 10:24 AM EDT) Cholesterol 145 0 - 200 mg/dL LAB CHEMISTRY METHOD 07/02/2024 12:49 PM EDT [facility] Triglycerides 118 0 - 150 mg/dL LAB CHEMISTRY METHOD 07/02/2024 12:49 PM EDT [facility] HDL 59 >=40 mg/dL LAB CHEMISTRY METHOD 07/02/2024 12:49 PM EDT [facility] LDL Calculated 62 0 - 100 mg/dL LAB CHEMISTRY METHOD 07/02/2024 12:49 PM EDT [facility] VLDL Cholesterol Олег 23.6 mg/dL LAB CHEMISTRY METHOD 07/02/2024 12:49 PM EDT [facility] Non HDL Chol. (LDL+VLDL) 86 <145 mg/dL LAB CHEMISTRY METHOD 07/02/2024 12:49 PM [facility] Chol/HDL Ratio 2.5 0.0 - 4.4 LAB CHEMISTRY METHOD 07/02/2024 12:49 PM T [facility] Blood Venous blood specimen / Unknown Venipuncture / Unknown 07/02/2024 10:24 AM EDT 07/02/2024 11:49 AM EDT us Austen Cevallos MD LAB BLOOD ORDERABLES Final Resul t [facility] [address] [place] [address], [place] [phone] * Comprehensive metabolic panel (07/02/2024 10:24 AM EDT) Sodium 143 133 - 145 mmol/L LAB CHEMISTRY METHOD 07/02/2024 12:49 PM [facility] Potassium 4.0 3.5 - 5.5 mmol/L LAB CHEMISTRY METHOD 07/02/2024 12:49 PM [facility] Chloride 106 96 - 110 mmol/L LAB CHEMISTRY METHOD 07/02/2024 12:49 PM [facility] CO2 30 21 - 32 mmol/L LAB CHEMISTRY METHOD 07/02/2024 12:49 PM [facility] Anion Gap 7 3 - 11 LAB CHEMISTRY METHOD 07/02/2024 12:49 PM [facility] Glucose 91 70 - 100 mg/dL LAB CHEMISTRY METHOD 07/02/2024 12:49 PM [facility] BUN 14 5 - 25 mg/dL LAB CHEMISTRY METHOD 07/02/2024 12:49 PM [facility] Creatinine 0.95 0.70 - 1.30 mg/dL LAB CHEMISTRY METHOD 07/02/2024 12:49 PM [facility] eGFR 81 >=60 mL/min/1. 73m2 LAB CHEMISTRY METHOD 07/02/2024 12:49 PM [facility] Comment:Calculation based on the Chronic Kidney Disease Epidemiology Collaboration (CKD-EPI) equation refit without adjustment for race. BUN/Creatinine Ratio 14.7 LAB CHEMISTRY METHOD 07/02/2024 12:49 PM [facility] Calcium 9.4 8.5 - 10.5 mg/dL LAB CHEMISTRY METHOD 07/02/2024 12:49 PM [facility] AST (SGOT) 26 10 - 42 unit/L LAB CHEMISTRY METHOD 07/02/2024 12:49 PM [facility] ALT (SGPT) 31 10 - 60 unit/L LAB CHEMISTRY METHOD 07/02/2024 12:49 PM [facility] Alkaline Phosphatase 83 42 - 121 unit/L LAB CHEMISTRY METHOD 07/02/2024 12:49 PM [facility] Total Protein 7.0 6.0 - 8.0 g/dL LAB CHEMISTRY METHOD 07/02/2024 12:49 PM [facility] Albumin 3.7 3.2 - 5.0 g/dL LAB CHEMISTRY METHOD 07/02/2024 12:49 PM [facility] Total Bilirubin 0.5 0.0 - 1.4 mg/dL LAB CHEMISTRY METHOD 07/02/2024 12:49 PM [facility] Blood Venous blood specimen / Unknown Venipuncture / Unknown 07/02/2024 10:24 AM EDT 07/02/2024 11:49 AM EDT us Austen Cevallos MD LAB BLOOD ORDERABLES Final Resul t [facility] [address] [place] [address], from Last 3 Months or Most Recently [...] currently active code status orders. Care Teams Sow Manager Relationship Specialty Start Date End Date Austen Cevallos MD [address] [facility] [address] [place] [address] PCP - General Internal Medicine 07/01/24
== END 2024-12-26 11:42 | disposition home or self-care (01) ==
LOC: HO.HUSH 10:59
PROVIDERS: PCP Internal Medicine; Visit Provider Urology
DX: N40.1 Benign prostatic hyperplasia with lower urinary tract symptoms (principal); N13.8 Other obstructive and reflux uropathy; N52.9 Male erectile dysfunction, unspecified; C61 Malignant neoplasm of prostate; Z19.1 Hormone sensitive malignancy status
CPT/HCPCS: 99214; G2211

== ENCOUNTER → 2024-12-26 10:58 | Outpatient (BNVA) | payer MEDICARE, SELFPAY | PROVIDERS: PCP Internal Medicine; Visit Provider Urology | DX: C61 Malignant neoplasm of prostate (principal); Z19.1 Hormone sensitive malignancy status | CPT/HCPCS: 99212 ==